=== PATIENT | female | born 1980 | race Hispanic/Latino ===

== ENCOUNTER → 2018-08-04 07:12 | Outpatient (CLI) | payer OTHER, SELFPAY ==
[2018-08-04 07:57] LABS: Hematocrit 40.7 % (36-46); Hemoglobin 13.6 g/dL (12.0-16.0); Mean Corpuscular HGB Conc 33.4 % (30-36); Mean Corpuscular Hemoglobin 30.7 PG (26-34); Mean Corpuscular Volume 91.9 fL (80-100); Platelet Count 307 X10^3/uL (150-400); Red Blood Cell Count 4.43 X10^6/uL (4.0-5.2); Red Cell Distribution Width 13.4 % (11.6-14.8); White Blood Cell Count 6.7 X10^3/uL (4.5-11.0)
[2018-08-04 08:30] LABS: Alanine Aminotransferase 14 IU/L (9-52); Albumin 4.5 g/dL (3.5-5.0); Albumin Globulin Ratio 1.5 (1.0-2.8); Alkaline Phosphatase 74 U/L (38-126); Aspartate Aminotransferase 22 IU/L (14-36); BUN Creatinine Ratio 24.3 (6-22); Bilirubin Total 0.4 mg/dL (0.2-1.3); Blood Urea Nitrogen 17 mg/dL (7-17); Calcium 9.8 mg/dL (8.4-10.2); Carbon Dioxide 31 mmol/L (22-32); Chloride 102 mmol/L (98-107); Cholesterol 173 mg/dL (140-199); Estimated Glomerular Filt Rate > 60.0 mL/min (>60); Globulin 3.1 g/dL (1.7-4.1); Glucose 90 mg/dL (70-100); HDL Cholesterol 78 mg/dL (40-60); HEMOLYSIS < 15 (0-50); LDL Cholesterol Calculated 80 mg/dL (<100); Potassium 5.1 mmol/L (3.4-5.1); Sodium 141 mmol/L (137-145); Total Protein 7.6 g/dL (6.3-8.2); Triglycerides 73 mg/dL (35-150)
== END ==
PROVIDERS: PCP Nurse Practitioner Family; Visit Provider Nurse Practitioner Family
DX: Z00.00 Encounter for general adult medical examination without abnormal findings (principal)
CPT/HCPCS: 36415; 80053; 80061; 85027

== ENCOUNTER → 2019-10-16 11:43 | Outpatient (CLI) | payer OTHER, SELFPAY ==
[2019-10-16 12:10] LABS: Hematocrit 39.6 % (36-46); Hemoglobin 13.3 g/dL (12.0-16.0); Mean Corpuscular HGB Conc 33.6 % (30-36); Mean Corpuscular Hemoglobin 30.7 PG (26-34); Mean Corpuscular Volume 91.2 fL (80-100); Platelet Count 299 X10^3/uL (150-400); Red Blood Cell Count 4.35 X10^6/uL (4.0-5.2); Red Cell Distribution Width 13.5 % (11.6-14.8); White Blood Cell Count 6.5 X10^3/uL (4.5-11.0)
[2019-10-16 14:07] LABS: Alanine Aminotransferase 28 IU/L (<35); Albumin 4.5 g/dL (3.5-5.0); Albumin Globulin Ratio 1.4 (1.0-2.8); Alkaline Phosphatase 65 U/L (38-126); Aspartate Aminotransferase 33 IU/L (14-36); BUN Creatinine Ratio 14.1 (6-22); Bilirubin Total 0.8 mg/dL (0.2-1.3); Blood Urea Nitrogen 11 mg/dL (7-17); Calcium 9.6 mg/dL (8.4-10.2); Carbon Dioxide 29 mmol/L (22-32); Chloride 102 mmol/L (98-107); Estimated Glomerular Filt Rate > 60.0 mL/min (>60); Globulin 3.3 g/dL (1.7-4.1); Glucose 88 mg/dL (70-100); HEMOLYSIS < 15 (0-50); Potassium 4.2 mmol/L (3.4-5.1); Sodium 135 mmol/L (137-145); Total Protein 7.8 g/dL (6.3-8.2)
== END ==
PROVIDERS: PCP Nurse Practitioner Family; Referring Provider Nurse Practitioner Family; Visit Provider Nurse Practitioner Family
DX: Z00.00 Encounter for general adult medical examination without abnormal findings (principal)
CPT/HCPCS: 36415; 80053; 85027

== ENCOUNTER 2020-07-26 13:45 | Outpatient (RCR) | payer OTHER, SELFPAY ==
--- NOTE | 2020-03-09 15:16 | PT.OIE ---
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 Family Provider Primary Care Provider Referring Provider Specialty: Family Practice Address: [address] [place] [address], [facility] Email: [email or web address] Physical Therapy Initial Evaluation PT-OP-A Visit Information Start: 03/09/20 12:58 Freq: Status: Active Protocol: Document 03/09/20 14:26 HH (Rec: 03/09/20 15:16 HH [email or web address]) Out-Patient Physical Therapy Visit Information Visit Information Visit Type Initial Evaluation Visit Start Time 13:00 Visit Stop Time 13:55 Total Visit Minutes 55 Visit Number Number of HEAD GOLF COACH Visits 0 Evaluation Information Evaluation Date 03/09/20 PT-OP-B Current Condition Start: 03/09/20 12:58 Freq: Status: Active Protocol: Document 03/09/20 14:26 HH (Rec: 03/09/20 15:16 HH [email or web address]) Current Condition History of Current Condition Onset Date many years ago Current Complaints R knee and R hip pain History of Current Condition Pt is an active 39yo female here for chronic R knee pain and new onset of R hip pain. Pt stated she fell a few months ago and landed on lateral side of her R hip. She stated that her whole lateral side has been hurting (pain3/ 10) since, along with tingling and numbness sensation to lateral aspect of RLE. She has been compensating by shifting her weight over to her L side for lots of activities such as running, standing and carrying kids as she stated. Also, pt stated she has L knee discomfort since 10 years ago after she hyperextended her knee while climbing stairs. She had MRI before with negative findings. She has pain 3/10 at her R knee cap region and she c/o being inactive tends to make her whole R leg stiff. Pt does crossfit 3-5 times/ week and run approx 13 miles during the weekend. Her goal is to be able to run 50 miles / month. Prior Treatments and Tests MRI from last year= negative findings Treatment Goals Patient/Caregiver Goals 1. to be able to ex and perform daily activities witohut RLE discomfort 2. to be able to run 50 miles a month Personal Factors Other Personal Factors That May Effect N/A Therapy/Recovery PT-OP-C Subjective Start: 03/09/20 12:58 Freq: Status: Active Protocol: Document 03/09/20 14:26 (Rec: 03/09/20 15:16 [email or web address]) Patient Questionnaires Lower Extremity Functional Scale LEFS Score 63 LEFS Impairment 1 to 19% Impaired (Score 63-79 ) OP-PT Pain Assessment Pain Assessment Grid Paper Pain Assessment Grid Completed Yes Location R knee Pain Location Details anterior and posterior knee Intensity 3 Scale Used Numeric (0 - 10) Description Aching Frequency Frequent Pain Aggravating Factors Activity,Exercise,Lifting R hip Pain Location Details lateral aspect Intensity 3 Scale Used Numeric (0 - 10) Description Aching Frequency Frequent Pain Aggravating Factors Position,Exercise,Standing, Sitting,Bending,Lifting PT-OP-D Balance Start: 03/09/20 12:58 Freq: Status: Active Protocol: Document 03/09/20 14:26 HH (Rec: 03/09/20 15:16 [email or web address]) Balance Tests Single Limb Standing Single Limb- Right >60 Single Limb- Left >60 Other Other Balance Tests Performed excessive R weight shift noted standing on RLE, normal = LLE PT-OP-E Functional Tests Start: 03/09/20 12:58 Freq: Status: Active Protocol: Document 03/09/20 14:26 (Rec: 03/09/20 15:16 [email or web address]) Functional Tests Star Excursion Balance Test Score on RLE fwd= 26, lateral= 27 on LLE fwd= 23, lateral= 27 Single Leg Squat Test Comment R =21 , L=18 PT-OP-F Manual Assessment Start: 03/09/20 12:58 Freq: Status: Active Protocol: Document 03/09/20 14:26 HH (Rec: 03/09/20 15:16 [email or web address]) Manual Assessments Soft Tissue Assessment Soft Tissue Mobility Assessment significant tenderness to pressure at R QL, paraspinals, R lateral quad, IT band and patella tendon PT-OP-J Posture/Palpation/Skin Start: 03/09/20 12:58 Freq: Status: Active Protocol: Document 03/09/20 14:26 (Rec: 03/09/20 15:16 [email or web address]) Posture Evaluation Position Standing Evaluation View Anterior Shoulder Posture (R) Elevated PT-OP-K Range of Motion Start: 03/09/20 12:58 Freq: Status: Active Protocol: Document 03/09/20 14:26 (Rec: 03/09/20 15:16 [email or web address]) Hip Goniometric Range of Motion Hip Left Active Internal Rotation 45 External Rotation 50 Right Active Hip ROM WFL Yes Testing Position Supine Internal Rotation 45 External Rotation 50 Knee Goniometric Range of Motion Knee Right Knee ROM WFL Yes Patient Position Supine Flexion Active (degrees) 142 Comments tightness and discomfort at end range Left Knee ROM WFL Yes Patient Position Supine Flexion Active (degrees) 155 Ankle and Foot Goniometric Range of Motion Ankle and Foot ROM Limitations Comments knee to wall test in lunges position R= 4 away from wall L= 5 away from wall PT-OP-L Special Tests Start: 03/09/20 12:58 Freq: Status: Active Protocol: Document 03/09/20 14:26 (Rec: 03/09/20 15:16 [email or web address]) Special Tests Knee Special Tests Donavan Test Results +Ve R Comments pain at distal quad and patella tendon PT-OP-M Strength Start: 03/09/20 12:58 Freq: Status: Active Protocol: Document 03/09/20 14:26 (Rec: 03/09/20 15:16 [email or web address]) Hip Strength Hip Manual Muscle Testing Right Flexion (L2) 4- Good- Extension (S1) 4- Good- Abduction 4- Good- Adduction 4- Good- Left Flexion (L2) 4 Good Extension (S1) 4 Good Abduction 4 Good Adduction 4 Good Knee Strength Knee Manual Muscle Testing Right Flexion (S2) 4- Good- Extension (L3) 4+ Good+ Left Flexion (S2) 4+ Good+ Extension (L3) 4+ Good+ Ankle/Foot Strength Ankle and Foot Manual Muscle Testing Right Dorsiflexion (L4) 5 Normal Plantarflexion (S1) 5 Normal Left Dorsiflexion (L4) 5 Normal Plantarflexion (S1) 5 Normal PT-OP-T Assessment and Plan Start: 03/09/20 12:58 Freq: Status: Active Protocol: Document 03/09/20 14:26 (Rec: 03/09/20 15:16 [email or web address]) Physical Therapy Assessment Rehab Potential Rehabilitation Potential Excellent Evaluation Complexity Number of Personal Factors/Comorbidities 0 Number of Body Systems Impaired 1-2 Clinical Presentation at Evaluation Stable Impairments Impairments Activity Tolerance,Balance, Functional Activities, Functional Mobility,Gait,Pain, Posture,ROM,Soft Tissue Mobility,Strength,Transfers Goals strength Impairment single leg squat on R= 21 inches, L = 18 inches Short Term Goal (STG) pt will increase her R LE stability and strength to be able to complete 5 times with minimal discomfort from 19 inches chair STG Duration 4 weeks Artificial Flowers Supervisor Goal (LTG) pt will increase her R LE stability and strength to be able to complete 10 times with minimal discomfort from 18 inches chair LTG Duration 8 weeks pain Impairment 3/10 pain Artificial Flowers Supervisor Goal (LTG) pt will not have R LE pain during her crossfit training and long runs LTG Duration 8 weeks LEFS Impairment pt scores 63 on LEFS Prison Goal (LTG) pt will score >70 on LEFS to improve her quality of life including being able to tolerate prolonged sitting > 1hours, sleeping on her R side and lift. LTG Duration 8 weeks single leg stability Impairment star test Short Term Goal (STG) 03/09 IE on RLE fwd= 26, lateral= 27 on LLE fwd= 23, lateral= 27 Artificial Flowers Supervisor Goal (LTG) pt will improve his single leg stability to be able to reach symmetrical result on star excursion test. LTG Duration 8 weeks Assessment Summary Assessment Pt is a 39 yo healthy and active female here for her chronic R knee pain and new onset of R hip pain. Upon assessment, pt appears to have R patella tendonopathy and R hip strain from the fall a few months ago. Pt has tightness at distal quad that limits her end range of knee flexion which specifically generates pain at deep squat and single leg squat. Her single leg stability and strength are also being limited. Pt's R hip does have WFL ROM but slight decreased in hip strength. However, this Pt noticed there 's LLD (R>L) and possible pelvic rotation and innominate and will cont to assess from next visit. Pt will benefit from skilled therapy to strength her R LE, knee ROM and overall single leg stability in order for her to continue participate crossfit training and running (goal = 50miles a month) Physical Therapy Plan Frequency and Duration Frequency of Treatment 2x/wkx1 m, 1x/wk x1m Duration of Treatment 8 weeks Plan of Care Start Date 03/09/20 Plan of Care End Date 05/08/20 Therapeutic Interventions Therapeutic Interventions Balance Training,Gait Training ,Home Exercise Program,Joint Mobilizations,Manual Therapy, Neuromuscular Re-education, Patient/Caregiver Education, Self-Care/Home Management,Soft Tissue Mobilization,Taping, Therapeutic Activities, Therapeutic Exercises Modalities Biofeedback,Cold Pack/Ice Massage,Electric Stimulation, Hot Packs,Infrared Therapy, Ultrasound Next Visit Focus/Plan Next Note Type Treatment Note Next Visit Plan check pelvic rotation, innominate, scoliosis, STM on quad , quad tendon, hip flexor stretch
--- NOTE | 2020-03-13 16:23 | PT.OTN ---
Current Diagnoses Other chronic pain (03/13/20) Pain in right knee (03/13/20) Physical Therapy Treatment Note PT-OP-A Visit Information Start: 03/09/20 12:58 Freq: Status: Active Protocol: Document 03/13/20 14:22 (Rec: 03/13/20 16:12 [id number]) Out-Patient Physical Therapy Visit Information Visit Information Visit Type Treatment Note Visit Note pt 15 mins late Visit Start Time 14:48 Visit Stop Time 15:16 Total Visit Minutes 28 Visit Number 2/60 Number of RUN BOAT OPERATOR Visits 0 PT-OP-B Current Condition Start: 03/09/20 12:58 Freq: Status: Active Protocol: Document 03/09/20 14:26 HH (Rec: 03/09/20 15:16 [email or web address]) Current Condition History of Current Condition Onset Date many years ago Current Complaints R knee and R hip pain History of Current Condition Pt is an active 39yo female here for chronic R knee pain and new onset of R hip pain. Pt stated she fell a few months ago and landed on lateral side of her R hip. She stated that her whole lateral side has been hurting (pain3/ 10) since, along with tingling and numbness sensation to lateral aspect of RLE. She has been compensating by shifting her weight over to her L side for lots of activities such as running, standing and carrying kids as she stated. Also, pt stated she has L knee discomfort since 10 years ago after she hyperextended her knee while climbing stairs. She had MRI before with negative findings. She has pain 3/10 at her R knee cap region and she c/o being inactive tends to make her whole R leg stiff. Pt does crossfit 3-5 times/ week and run approx 13 miles during the weekend. Her goal is to be able to run 50 miles / month. Prior Treatments and Tests MRI from last year= negative findings Treatment Goals Patient/Caregiver Goals 1. to be able to ex and perform daily activities witohut RLE discomfort 2. to be able to run 50 miles a month Personal Factors Other Personal Factors That May Effect N/A Therapy/Recovery PT-OP-C Subjective Start: 03/09/20 12:58 Freq: Status: Active Protocol: Document 03/13/20 14:22 HH (Rec: 03/13/20 16:12 [email or web address]) OP-PT Subjective Patient Comments Patient Comments Im excited for therapy Patient Reported Progress Improving PT-OP-D Balance Start: 03/09/20 12:58 Freq: Status: Active Protocol: Document 03/09/20 14:26 (Rec: 03/09/20 15:16 [email or web address]) Balance Tests Single Limb Standing Single Limb- Right >60 Single Limb- Left >60 Other Other Balance Tests Performed excessive R weight shift noted standing on RLE, normal = LLE PT-OP-E Functional Tests Start: 03/09/20 12:58 Freq: Status: Active Protocol: Document 03/09/20 14:26 (Rec: 03/09/20 15:16 [email or web address]) Functional Tests Star Excursion Balance Test Score on RLE fwd= 26, lateral= 27 on LLE fwd= 23, lateral= 27 Single Leg Squat Test Comment R =21 , L=18 PT-OP-F Manual Assessment Start: 03/09/20 12:58 Freq: Status: Active Protocol: Document 03/09/20 14:26 (Rec: 03/09/20 15:16 [email or web address]) Manual Assessments Soft Tissue Assessment Soft Tissue Mobility Assessment significant tenderness to pressure at R QL, paraspinals, R lateral quad, IT band and patella tendon PT-OP-J Posture/Palpation/Skin Start: 03/09/20 12:58 Freq: Status: Active Protocol: Document 03/09/20 14:26 (Rec: 03/09/20 15:16 [email or web address]) Posture Evaluation Position Standing Evaluation View Anterior Shoulder Posture (R) Elevated PT-OP-K Range of Motion Start: 03/09/20 12:58 Freq: Status: Active Protocol: Document 03/09/20 14:26 (Rec: 03/09/20 15:16 [email or web address]) Hip Goniometric Range of Motion Hip Left Active Internal Rotation 45 External Rotation 50 Right Active Hip ROM WFL Yes Testing Position Supine Internal Rotation 45 External Rotation 50 Knee Goniometric Range of Motion Knee Right Knee ROM WFL Yes Patient Position Supine Flexion Active (degrees) 142 Comments tightness and discomfort at end range Left Knee ROM WFL Yes Patient Position Supine Flexion Active (degrees) 155 Ankle and Foot Goniometric Range of Motion Ankle and Foot ROM Limitations Comments knee to wall test in lunges position R= 4 away from wall L= 5 away from wall PT-OP-L Special Tests Start: 03/09/20 12:58 Freq: Status: Active Protocol: Document 03/09/20 14:26 (Rec: 03/09/20 15:16 [email or web address]) Special Tests Knee Special Tests Donavan Test Results +Ve R Comments pain at distal quad and patella tendon PT-OP-M Strength Start: 03/09/20 12:58 Freq: Status: Active Protocol: Document 03/09/20 14:26 (Rec: 03/09/20 15:16 [email or web address]) Hip Strength Hip Manual Muscle Testing Right Flexion (L2) 4- Good- Extension (S1) 4- Good- Abduction 4- Good- Adduction 4- Good- Left Flexion (L2) 4 Good Extension (S1) 4 Good Abduction 4 Good Adduction 4 Good Knee Strength Knee Manual Muscle Testing Right Flexion (S2) 4- Good- Extension (L3) 4+ Good+ Left Flexion (S2) 4+ Good+ Extension (L3) 4+ Good+ Ankle/Foot Strength Ankle and Foot Manual Muscle Testing Right Dorsiflexion (L4) 5 Normal Plantarflexion (S1) 5 Normal Left Dorsiflexion (L4) 5 Normal Plantarflexion (S1) 5 Normal PT-OP-Q Treatments Start: 03/09/20 12:58 Freq: Status: Active Protocol: Document 03/13/20 14:22 (Rec: 03/13/20 16:12 [id number]) Therapeutic Exercises Supine Exercises piriformis stretch Side bilateral Reps/Minutes 15secs hold x 4 Comments for HEP glute release Equipment Used foam roller Reps/Minutes 2 mins Comments for HEP Prone Exercises quad release Equipment Used foam roller Reps/Minutes 2 mins Comments for HEP Standing Exercises ankle DF Standing Exercise Name elevated lunge position Side right Comments for HEP hip hike against wall Standing Exercise Name needed tactile cue to guide pelvic hip hiking Side bilateral Reps/Minutes 8 x2 Comments for HEP standing hip abd Equipment Used wall for support Reps/Minutes 10 x 2 Comments for HEP Manual Therapy Treatment Soft Tissue Mobilization QL Mobilization Type Sustained Pressure,Trigger Point Release Intensity/Depth Moderate Body Position Sidelying Comments slight tenderness to pressure noted at R QL R glute Mobilization Type Sustained Pressure,Trigger Point Release Intensity/Depth Moderate Body Position Sidelying distal quad Mobilization Type Rolling,Sustained Pressure, Trigger Point Release Intensity/Depth Moderate Body Position Supine PT-OP-T Assessment and Plan Start: 03/09/20 12:58 Freq: Status: Active Protocol: Document 03/13/20 14:22 (Rec: 03/13/20 16:12 [email or web address]) Physical Therapy Assessment Goals strength Impairment single leg squat on R= 21 inches, L = 18 inches Short Term Goal (STG) pt will increase her R LE stability and strength to be able to complete 5 times with minimal discomfort from 19 inches chair STG Duration 4 weeks Smt Machine Operator Goal (LTG) pt will increase her R LE stability and strength to be able to complete 10 times with minimal discomfort from 18 inches chair LTG Duration 8 weeks pain Impairment 3/10 pain Mcfp Goal (LTG) pt will not have R LE pain during her crossfit training and long runs LTG Duration 8 weeks LEFS Impairment pt scores 63 on LEFS Mcfp Goal (LTG) pt will score >70 on LEFS to improve her quality of life including being able to tolerate prolonged sitting > 1hours, sleeping on her R side and lift. LTG Duration 8 weeks single leg stability Impairment star test Short Term Goal (STG) 03/09 IE on RLE fwd= 26, lateral= 27 on LLE fwd= 23, lateral= 27 Mcfp Goal (LTG) pt will improve his single leg stability to be able to reach symmetrical result on star excursion test. LTG Duration 8 weeks Assessment Summary Assessment check leg length today LLE= 35 , RLE = 36. Pt has significant tenderness to pressure at distal quad and R glute but improved after manual therapy, so does her LLD. Added figure 4 stretch, hip abd, hip hike, quad release for HEP. Physical Therapy Plan Frequency and Duration Frequency of Treatment 2x/wkx1 m, 1x/wk x1m Duration of Treatment 8 weeks Plan of Care Start Date 03/09/20 Plan of Care End Date 05/08/20 Next Visit Focus/Plan Next Note Type Treatment Note Next Visit Plan check pelvic rotation, innominate, scoliosis, STM on quad , quad tendon, hip flexor stretch
--- NOTE | 2020-03-16 16:23 | PT.OTN ---
Current Diagnoses Other chronic pain (03/16/20) Pain in right knee (03/16/20) Physical Therapy Treatment Note PT-OP-A Visit Information Start: 03/09/20 12:58 Freq: Status: Active Protocol: Document 03/16/20 15:19 HH (Rec: 03/16/20 16:23 [id number]) Out-Patient Physical Therapy Visit Information Visit Information Visit Type Treatment Note Visit Start Time 15:16 Visit Stop Time 16:00 Total Visit Minutes 44 Visit Number 3/60 Number of DOBBY LOOMS PEGGER Visits 0 PT-OP-B Current Condition Start: 03/09/20 12:58 Freq: Status: Active Protocol: Document 03/09/20 14:26 HH (Rec: 03/09/20 15:16 [email or web address]) Current Condition History of Current Condition Onset Date many years ago Current Complaints R knee and R hip pain History of Current Condition Pt is an active 39yo female here for chronic R knee pain and new onset of R hip pain. Pt stated she fell a few months ago and landed on lateral side of her R hip. She stated that her whole lateral side has been hurting (pain3/ 10) since, along with tingling and numbness sensation to lateral aspect of RLE. She has been compensating by shifting her weight over to her L side for lots of activities such as running, standing and carrying kids as she stated. Also, pt stated she has L knee discomfort since 10 years ago after she hyperextended her knee while climbing stairs. She had MRI before with negative findings. She has pain 3/10 at her R knee cap region and she c/o being inactive tends to make her whole R leg stiff. Pt does crossfit 3-5 times/ week and run approx 13 miles during the weekend. Her goal is to be able to run 50 miles / month. Prior Treatments and Tests MRI from last year= negative findings Treatment Goals Patient/Caregiver Goals 1. to be able to ex and perform daily activities witohut RLE discomfort 2. to be able to run 50 miles a month Personal Factors Other Personal Factors That May Effect N/A Therapy/Recovery PT-OP-C Subjective Start: 03/09/20 12:58 Freq: Status: Active Protocol: Document 03/16/20 15:19 HH (Rec: 03/16/20 16:23 [id number]) OP-PT Subjective Patient Comments Patient Comments I feel better now and i am able to sleep on my R side now . Patient Reported Progress Improving PT-OP-D Balance Start: 03/09/20 12:58 Freq: Status: Active Protocol: Document 03/09/20 14:26 HH (Rec: 03/09/20 15:16 [email or web address]) Balance Tests Single Limb Standing Single Limb- Right >60 Single Limb- Left >60 Other Other Balance Tests Performed excessive R weight shift noted standing on RLE, normal = LLE PT-OP-E Functional Tests Start: 03/09/20 12:58 Freq: Status: Active Protocol: Document 03/09/20 14:26 HH (Rec: 03/09/20 15:16 [email or web address]) Functional Tests Star Excursion Balance Test Score on RLE fwd= 26, lateral= 27 on LLE fwd= 23, lateral= 27 Single Leg Squat Test Comment R =21 , L=18 PT-OP-F Manual Assessment Start: 03/09/20 12:58 Freq: Status: Active Protocol: Document 03/09/20 14:26 HH (Rec: 03/09/20 15:16 [email or web address]) Manual Assessments Soft Tissue Assessment Soft Tissue Mobility Assessment significant tenderness to pressure at R QL, paraspinals, R lateral quad, IT band and patella tendon PT-OP-J Posture/Palpation/Skin Start: 03/09/20 12:58 Freq: Status: Active Protocol: Document 03/09/20 14:26 HH (Rec: 03/09/20 15:16 [email or web address]) Posture Evaluation Position Standing Evaluation View Anterior Shoulder Posture (R) Elevated PT-OP-K Range of Motion Start: 03/09/20 12:58 Freq: Status: Active Protocol: Document 03/09/20 14:26 HH (Rec: 03/09/20 15:16 [email or web address]) Hip Goniometric Range of Motion Hip Left Active Internal Rotation 45 External Rotation 50 Right Active Hip ROM WFL Yes Testing Position Supine Internal Rotation 45 External Rotation 50 Knee Goniometric Range of Motion Knee Right Knee ROM WFL Yes Patient Position Supine Flexion Active (degrees) 142 Comments tightness and discomfort at end range Left Knee ROM WFL Yes Patient Position Supine Flexion Active (degrees) 155 Ankle and Foot Goniometric Range of Motion Ankle and Foot ROM Limitations Comments knee to wall test in lunges position R= 4 away from wall L= 5 away from wall PT-OP-L Special Tests Start: 03/09/20 12:58 Freq: Status: Active Protocol: Document 03/09/20 14:26 (Rec: 03/09/20 15:16 [email or web address]) Special Tests Knee Special Tests Donavan Test Results +Ve R Comments pain at distal quad and patella tendon PT-OP-M Strength Start: 03/09/20 12:58 Freq: Status: Active Protocol: Document 03/09/20 14:26 (Rec: 03/09/20 15:16 [email or web address]) Hip Strength Hip Manual Muscle Testing Right Flexion (L2) 4- Good- Extension (S1) 4- Good- Abduction 4- Good- Adduction 4- Good- Left Flexion (L2) 4 Good Extension (S1) 4 Good Abduction 4 Good Adduction 4 Good Knee Strength Knee Manual Muscle Testing Right Flexion (S2) 4- Good- Extension (L3) 4+ Good+ Left Flexion (S2) 4+ Good+ Extension (L3) 4+ Good+ Ankle/Foot Strength Ankle and Foot Manual Muscle Testing Right Dorsiflexion (L4) 5 Normal Plantarflexion (S1) 5 Normal Left Dorsiflexion (L4) 5 Normal Plantarflexion (S1) 5 Normal PT-OP-Q Treatments Start: 03/09/20 12:58 Freq: Status: Active Protocol: Document 03/16/20 15:19 (Rec: 03/16/20 16:23 [id number]) Therapeutic Exercises Supine Exercises bridging Side bilateral Reps/Minutes 10 x2 Comments then SL bridge piriformis stretch Side bilateral Reps/Minutes 15secs hold x 4 Comments for HEP Standing Exercises step up Side bilateral Equipment Used 12 box Reps/Minutes 8x2 Comments pt reports R knee instability at first, but improved after modified lunges lunges Side bilateral Equipment Used level 1 band at knee to provide knee valgus Reps/Minutes 8x2 Comments cues on knee alignment RDL Side bilateral Equipment Used 20lbs KB Reps/Minutes 8 x 2 ankle DF Standing Exercise Name elevated lunge position Side right Comments for HEP hip hike against wall Standing Exercise Name needed tactile cue to guide pelvic hip hiking Side bilateral Reps/Minutes 8 x2 Comments for HEP Manual Therapy Treatment Soft Tissue Mobilization QL Mobilization Type Sustained Pressure,Trigger Point Release Intensity/Depth Moderate Body Position Sidelying Comments slight tenderness to pressure noted at R QL R glute Mobilization Type Sustained Pressure,Trigger Point Release Intensity/Depth Moderate Body Position Sidelying PT-OP-T Assessment and Plan Start: 03/09/20 12:58 Freq: Status: Active Protocol: Document 03/16/20 15:19 HH (Rec: 03/16/20 16:23 HH [id number]) Physical Therapy Assessment Goals strength Impairment single leg squat on R= 21 inches, L = 18 inches Short Term Goal (STG) pt will increase her R LE stability and strength to be able to complete 5 times with minimal discomfort from 19 inches chair STG Duration 4 weeks Heating Engineer Goal (LTG) pt will increase her R LE stability and strength to be able to complete 10 times with minimal discomfort from 18 inches chair LTG Duration 8 weeks pain Impairment 3/10 pain Group Home Goal (LTG) pt will not have R LE pain during her crossfit training and long runs LTG Duration 8 weeks LEFS Impairment pt scores 63 on LEFS Group Home Goal (LTG) pt will score >70 on LEFS to improve her quality of life including being able to tolerate prolonged sitting > 1hours, sleeping on her R side and lift. LTG Duration 8 weeks single leg stability Impairment star test Short Term Goal (STG) 03/09 IE on RLE fwd= 26, lateral= 27 on LLE fwd= 23, lateral= 27 Group Home Goal (LTG) pt will improve his single leg stability to be able to reach symmetrical result on star excursion test. LTG Duration 8 weeks Assessment Summary Assessment Pt progress well so far with less pain and improved activity tolerance. pt also shows improved step up stability on RLE after mod lunges with focus on R glute activation. Physical Therapy Plan Frequency and Duration Frequency of Treatment 2x/wkx1 m, 1x/wk x1m Duration of Treatment 8 weeks Plan of Care Start Date 03/09/20 Plan of Care End Date 05/08/20 Next Visit Focus/Plan Next Note Type Treatment Note Next Visit Plan check pelvic rotation, innominate, scoliosis, STM on quad , quad tendon, hip flexor stretch
--- NOTE | 2020-03-21 16:19 | PT.OTN ---
Current Diagnoses Other chronic pain (03/21/20) Pain in right knee (03/21/20) Physical Therapy Treatment Note PT-OP-A Visit Information Start: 03/09/20 12:58 Freq: Status: Active Protocol: Document 03/21/20 14:35 HH (Rec: 03/21/20 16:19 [id number]) Out-Patient Physical Therapy Visit Information Visit Information Visit Type Treatment Note Visit Start Time 14:33 Visit Stop Time 15:15 Total Visit Minutes 42 Visit Number 4/60 Number of MEDICAL FIELD REPRESENTATIVE Visits 0 PT-OP-B Current Condition Start: 03/09/20 12:58 Freq: Status: Active Protocol: Document 03/09/20 14:26 HH (Rec: 03/09/20 15:16 [email or web address]) Current Condition History of Current Condition Onset Date many years ago Current Complaints R knee and R hip pain History of Current Condition Pt is an active 39yo female here for chronic R knee pain and new onset of R hip pain. Pt stated she fell a few months ago and landed on lateral side of her R hip. She stated that her whole lateral side has been hurting (pain3/ 10) since, along with tingling and numbness sensation to lateral aspect of RLE. She has been compensating by shifting her weight over to her L side for lots of activities such as running, standing and carrying kids as she stated. Also, pt stated she has L knee discomfort since 10 years ago after she hyperextended her knee while climbing stairs. She had MRI before with negative findings. She has pain 3/10 at her R knee cap region and she c/o being inactive tends to make her whole R leg stiff. Pt does crossfit 3-5 times/ week and run approx 13 miles during the weekend. Her goal is to be able to run 50 miles / month. Prior Treatments and Tests MRI from last year= negative findings Treatment Goals Patient/Caregiver Goals 1. to be able to ex and perform daily activities witohut RLE discomfort 2. to be able to run 50 miles a month Personal Factors Other Personal Factors That May Effect N/A Therapy/Recovery PT-OP-C Subjective Start: 03/09/20 12:58 Freq: Status: Active Protocol: Document 03/21/20 14:35 HH (Rec: 03/21/20 16:19 [id number]) OP-PT Subjective Patient Comments Patient Comments I did 10 miles over the weekend and i feel great. The stretching Patient Reported Progress Improving PT-OP-D Balance Start: 03/09/20 12:58 Freq: Status: Active Protocol: Document 03/09/20 14:26 (Rec: 03/09/20 15:16 [email or web address]) Balance Tests Single Limb Standing Single Limb- Right >60 Single Limb- Left >60 Other Other Balance Tests Performed excessive R weight shift noted standing on RLE, normal = LLE PT-OP-E Functional Tests Start: 03/09/20 12:58 Freq: Status: Active Protocol: Document 03/09/20 14:26 (Rec: 03/09/20 15:16 [email or web address]) Functional Tests Star Excursion Balance Test Score on RLE fwd= 26, lateral= 27 on LLE fwd= 23, lateral= 27 Single Leg Squat Test Comment R =21 , L=18 PT-OP-F Manual Assessment Start: 03/09/20 12:58 Freq: Status: Active Protocol: Document 03/09/20 14:26 (Rec: 03/09/20 15:16 [email or web address]) Manual Assessments Soft Tissue Assessment Soft Tissue Mobility Assessment significant tenderness to pressure at R QL, paraspinals, R lateral quad, IT band and patella tendon PT-OP-J Posture/Palpation/Skin Start: 03/09/20 12:58 Freq: Status: Active Protocol: Document 03/09/20 14:26 (Rec: 03/09/20 15:16 [email or web address]) Posture Evaluation Position Standing Evaluation View Anterior Shoulder Posture (R) Elevated PT-OP-K Range of Motion Start: 03/09/20 12:58 Freq: Status: Active Protocol: Document 03/09/20 14:26 (Rec: 03/09/20 15:16 [email or web address]) Hip Goniometric Range of Motion Hip Left Active Internal Rotation 45 External Rotation 50 Right Active Hip ROM WFL Yes Testing Position Supine Internal Rotation 45 External Rotation 50 Knee Goniometric Range of Motion Knee Right Knee ROM WFL Yes Patient Position Supine Flexion Active (degrees) 142 Comments tightness and discomfort at end range Left Knee ROM WFL Yes Patient Position Supine Flexion Active (degrees) 155 Ankle and Foot Goniometric Range of Motion Ankle and Foot ROM Limitations Comments knee to wall test in lunges position R= 4 away from wall L= 5 away from wall PT-OP-L Special Tests Start: 03/09/20 12:58 Freq: Status: Active Protocol: Document 03/09/20 14:26 HH (Rec: 03/09/20 15:16 [email or web address]) Special Tests Knee Special Tests Donavan Test Results +Ve R Comments pain at distal quad and patella tendon PT-OP-M Strength Start: 03/09/20 12:58 Freq: Status: Active Protocol: Document 03/09/20 14:26 HH (Rec: 03/09/20 15:16 [email or web address]) Hip Strength Hip Manual Muscle Testing Right Flexion (L2) 4- Good- Extension (S1) 4- Good- Abduction 4- Good- Adduction 4- Good- Left Flexion (L2) 4 Good Extension (S1) 4 Good Abduction 4 Good Adduction 4 Good Knee Strength Knee Manual Muscle Testing Right Flexion (S2) 4- Good- Extension (L3) 4+ Good+ Left Flexion (S2) 4+ Good+ Extension (L3) 4+ Good+ Ankle/Foot Strength Ankle and Foot Manual Muscle Testing Right Dorsiflexion (L4) 5 Normal Plantarflexion (S1) 5 Normal Left Dorsiflexion (L4) 5 Normal Plantarflexion (S1) 5 Normal PT-OP-Q Treatments Start: 03/09/20 12:58 Freq: Status: Active Protocol: Document 03/21/20 14:35 HH (Rec: 03/21/20 16:19 [id number]) Therapeutic Exercises Supine Exercises bridging Supine Exercise Name SL bridge Side bilateral Reps/Minutes 10 x2 piriformis stretch Side bilateral Reps/Minutes 15secs hold x 4 Comments for HEP Standing Exercises SL squat Standing Exercise Name single leg squat Side bilateral Equipment Used from 22 Reps/Minutes [address] Standing Exercise Name fwd, bwd and lateral Side bilateral Equipment Used slider Reps/Minutes 4 rounds x 2 Comments cues on WB on RLE step up Side bilateral Equipment Used 12 box Reps/Minutes 8x2 Comments pt reports R knee instability at first, but improved after modified lunges lunges Side bilateral Equipment Used level 1 band at knee to provide knee valgus Reps/Minutes 8x2 Comments cues on knee alignment RDL Side bilateral Equipment Used 20lbs KB Reps/Minutes 8 x 2 Manual Therapy Treatment Soft Tissue Mobilization QL Mobilization Type Sustained Pressure,Trigger Point Release Intensity/Depth Moderate Body Position Sidelying Comments slight tenderness to pressure noted at R QL R glute Mobilization Type Sustained Pressure,Trigger Point Release Intensity/Depth Moderate Body Position Sidelying PT-OP-T Assessment and Plan Start: 03/09/20 12:58 Freq: Status: Active Protocol: Document 03/21/20 14:35 HH (Rec: 03/21/20 16:19 HH [id number]) Physical Therapy Assessment Goals strength Impairment single leg squat on R= 21 inches, L = 18 inches Short Term Goal (STG) pt will increase her R LE stability and strength to be able to complete 5 times with minimal discomfort from 19 inches chair STG Duration 4 weeks Detention Goal (LTG) pt will increase her R LE stability and strength to be able to complete 10 times with minimal discomfort from 18 inches chair LTG Duration 8 weeks pain Impairment 3/10 pain Detention Goal (LTG) pt will not have R LE pain during her crossfit training and long runs LTG Duration 8 weeks LEFS Impairment pt scores 63 on LEFS Windshield Installer Goal (LTG) pt will score >70 on LEFS to improve her quality of life including being able to tolerate prolonged sitting > 1hours, sleeping on her R side and lift. LTG Duration 8 weeks single leg stability Impairment star test Short Term Goal (STG) 03/09 IE on RLE fwd= 26, lateral= 27 on LLE fwd= 23, lateral= 27 Detention Goal (LTG) pt will improve his single leg stability to be able to reach symmetrical result on star excursion test. LTG Duration 8 weeks Assessment Summary Assessment Pt reports she ran 10 miles during the weekend without much discomfort. Pt also feels improved SL stability and strength at R LE. Pt caitie session well today with SL stability and strnegthening focused therex. Physical Therapy Plan Frequency and Duration Frequency of Treatment 2x/wkx1 m, 1x/wk x1m Duration of Treatment 8 weeks Plan of Care Start Date 03/09/20 Plan of Care End Date 05/08/20 Next Visit Focus/Plan Next Note Type Treatment Note Next Visit Plan check pelvic rotation, innominate, scoliosis, STM on quad , quad tendon, hip flexor stretch
--- NOTE | 2020-04-10 16:14 | PT.OTN ---
Current Diagnoses Other chronic pain (04/10/20) Pain in right knee (04/10/20) Physical Therapy Treatment Note PT-OP-A Visit Information Start: 03/09/20 12:58 Freq: Status: Active Protocol: Document 04/10/20 13:49 HH (Rec: 04/10/20 16:13 [id number]) Out-Patient Physical Therapy Visit Information Visit Information Visit Type Treatment Note Visit Start Time 13:57 Visit Stop Time 14:45 Total Visit Minutes 48 Visit Number 5/60 Number of STRATEGIC SOURCING SPECIALIST Visits 0 PT-OP-B Current Condition Start: 03/09/20 12:58 Freq: Status: Active Protocol: Document 03/09/20 14:26 HH (Rec: 03/09/20 15:16 [email or web address]) Current Condition History of Current Condition Onset Date many years ago Current Complaints R knee and R hip pain History of Current Condition Pt is an active 39yo female here for chronic R knee pain and new onset of R hip pain. Pt stated she fell a few months ago and landed on lateral side of her R hip. She stated that her whole lateral side has been hurting (pain3/ 10) since, along with tingling and numbness sensation to lateral aspect of RLE. She has been compensating by shifting her weight over to her L side for lots of activities such as running, standing and carrying kids as she stated. Also, pt stated she has L knee discomfort since 10 years ago after she hyperextended her knee while climbing stairs. She had MRI before with negative findings. She has pain 3/10 at her R knee cap region and she c/o being inactive tends to make her whole R leg stiff. Pt does crossfit 3-5 times/ week and run approx 13 miles during the weekend. Her goal is to be able to run 50 miles / month. Prior Treatments and Tests MRI from last year= negative findings Treatment Goals Patient/Caregiver Goals 1. to be able to ex and perform daily activities witohut RLE discomfort 2. to be able to run 50 miles a month Personal Factors Other Personal Factors That May Effect N/A Therapy/Recovery PT-OP-C Subjective Start: 03/09/20 12:58 Freq: Status: Active Protocol: Document 04/10/20 13:49 HH (Rec: 04/10/20 16:13 [id number]) OP-PT Subjective Patient Comments Patient Comments I havent run for 20 days so im a little abit out of shape. PT-OP-D Balance Start: 03/09/20 12:58 Freq: Status: Active Protocol: Document 03/09/20 14:26 (Rec: 03/09/20 15:16 [email or web address]) Balance Tests Single Limb Standing Single Limb- Right >60 Single Limb- Left >60 Other Other Balance Tests Performed excessive R weight shift noted standing on RLE, normal = LLE PT-OP-E Functional Tests Start: 03/09/20 12:58 Freq: Status: Active Protocol: Document 03/09/20 14:26 (Rec: 03/09/20 15:16 [email or web address]) Functional Tests Star Excursion Balance Test Score on RLE fwd= 26, lateral= 27 on LLE fwd= 23, lateral= 27 Single Leg Squat Test Comment R =21 , L=18 PT-OP-F Manual Assessment Start: 03/09/20 12:58 Freq: Status: Active Protocol: Document 03/09/20 14:26 (Rec: 03/09/20 15:16 [email or web address]) Manual Assessments Soft Tissue Assessment Soft Tissue Mobility Assessment significant tenderness to pressure at R QL, paraspinals, R lateral quad, IT band and patella tendon PT-OP-J Posture/Palpation/Skin Start: 03/09/20 12:58 Freq: Status: Active Protocol: Document 03/09/20 14:26 (Rec: 03/09/20 15:16 [email or web address]) Posture Evaluation Position Standing Evaluation View Anterior Shoulder Posture (R) Elevated PT-OP-K Range of Motion Start: 03/09/20 12:58 Freq: Status: Active Protocol: Document 03/09/20 14:26 (Rec: 03/09/20 15:16 [email or web address]) Hip Goniometric Range of Motion Hip Left Active Internal Rotation 45 External Rotation 50 Right Active Hip ROM WFL Yes Testing Position Supine Internal Rotation 45 External Rotation 50 Knee Goniometric Range of Motion Knee Right Knee ROM WFL Yes Patient Position Supine Flexion Active (degrees) 142 Comments tightness and discomfort at end range Left Knee ROM WFL Yes Patient Position Supine Flexion Active (degrees) 155 Ankle and Foot Goniometric Range of Motion Ankle and Foot ROM Limitations Comments knee to wall test in lunges position R= 4 away from wall L= 5 away from wall PT-OP-L Special Tests Start: 03/09/20 12:58 Freq: Status: Active Protocol: Document 03/09/20 14:26 HH (Rec: 03/09/20 15:16 [email or web address]) Special Tests Knee Special Tests Donavan Test Results +Ve R Comments pain at distal quad and patella tendon PT-OP-M Strength Start: 03/09/20 12:58 Freq: Status: Active Protocol: Document 03/09/20 14:26 HH (Rec: 03/09/20 15:16 [email or web address]) Hip Strength Hip Manual Muscle Testing Right Flexion (L2) 4- Good- Extension (S1) 4- Good- Abduction 4- Good- Adduction 4- Good- Left Flexion (L2) 4 Good Extension (S1) 4 Good Abduction 4 Good Adduction 4 Good Knee Strength Knee Manual Muscle Testing Right Flexion (S2) 4- Good- Extension (L3) 4+ Good+ Left Flexion (S2) 4+ Good+ Extension (L3) 4+ Good+ Ankle/Foot Strength Ankle and Foot Manual Muscle Testing Right Dorsiflexion (L4) 5 Normal Plantarflexion (S1) 5 Normal Left Dorsiflexion (L4) 5 Normal Plantarflexion (S1) 5 Normal PT-OP-Q Treatments Start: 03/09/20 12:58 Freq: Status: Active Protocol: Document 04/10/20 13:49 HH (Rec: 04/10/20 16:13 [id number]) Therapeutic Exercises Supine Exercises bridging Supine Exercise Name SL bridge Side bilateral Equipment Used green band Reps/Minutes 10 x2 piriformis stretch Side bilateral Reps/Minutes 15secs hold x 4 Comments for HEP Standing Exercises calf stretch Side bilateral Reps/Minutes 15 sec hold x5 wall sit Standing Exercise Name ball between knees Side bilateral Reps/Minutes 20 secs hold x5 SL squat Standing Exercise Name single leg squat Side bilateral Equipment Used from 22 Reps/Minutes [address] Standing Exercise Name fwd, bwd and lateral Side bilateral Equipment Used slider Reps/Minutes 4 rounds x 2 Comments cues on WB on RLE step up Standing Exercise Name TUT, 5 seconds each for descend and ascend Side bilateral Equipment Used 12 box Reps/Minutes 8x2 Comments pt reports R knee instability at first, but improved after modified lunges lunges Side bilateral Equipment Used level 1 band at knee to provide knee valgus Reps/Minutes 8x2 Comments cues on knee alignment Manual Therapy Treatment Soft Tissue Mobilization QL Mobilization Type Sustained Pressure,Trigger Point Release Intensity/Depth Moderate Body Position Sidelying Comments slight tenderness to pressure noted at R QL R glute Mobilization Type Sustained Pressure,Trigger Point Release Intensity/Depth Moderate Body Position Sidelying PT-OP-T Assessment and Plan Start: 03/09/20 12:58 Freq: Status: Active Protocol: Document 04/10/20 13:49 (Rec: 04/10/20 16:13 [id number]) Physical Therapy Assessment Goals strength Impairment single leg squat on R= 21 inches, L = 18 inches Short Term Goal (STG) pt will increase her R LE stability and strength to be able to complete 5 times with minimal discomfort from 19 inches chair STG Duration 4 weeks Correction Goal (LTG) pt will increase her R LE stability and strength to be able to complete 10 times with minimal discomfort from 18 inches chair LTG Duration 8 weeks pain Impairment 3/10 pain Fund Raiser Goal (LTG) pt will not have R LE pain during her crossfit training and long runs LTG Duration 8 weeks LEFS Impairment pt scores 63 on LEFS Fund Raiser Goal (LTG) pt will score >70 on LEFS to improve her quality of life including being able to tolerate prolonged sitting > 1hours, sleeping on her R side and lift. LTG Duration 8 weeks single leg stability Impairment star test Short Term Goal (STG) 03/09 IE on RLE fwd= 26, lateral= 27 on LLE fwd= 23, lateral= 27 Fund Raiser Goal (LTG) pt will improve his single leg stability to be able to reach symmetrical result on star excursion test. LTG Duration 8 weeks Assessment Summary Assessment Pt no longer have R hip discomfort but residual R knee pain during her workouts and running routine. Pt has patella tendonopathy after assessment, especially pt's workout routine which involves crossfit high intensity movement patterns. Pt reports reduced knee pain after focusing on slow eccentric quad strengthening therex. Added wall sit, step up (10s each rep) and calf stretch. D/ t pt's good progress, pt will benefit from 1x/wk x 4 weeks. Physical Therapy Plan Frequency and Duration Frequency of Treatment 1x/Week Duration of Treatment 4 weeks Plan of Care Start Date 03/09/20 Plan of Care End Date 05/08/20 Next Visit Focus/Plan Next Note Type Treatment Note Next Visit Plan check pelvic rotation, innominate, scoliosis, STM on quad , quad tendon, hip flexor stretch
--- NOTE | 2020-04-13 14:34 | PT.OTN ---
Current Diagnoses Other chronic pain (04/13/20) Pain in right knee (04/13/20) Physical Therapy Treatment Note PT-OP-A Visit Information Start: 03/09/20 12:58 Freq: Status: Active Protocol: Document 04/13/20 13:51 HH (Rec: 04/13/20 14:34 [id number]) Out-Patient Physical Therapy Visit Information Visit Information Visit Type Treatment Note Visit Start Time 13:48 Visit Stop Time 14:30 Total Visit Minutes 42 Visit Number 6/60 Number of SCRAP CHARGER Visits 0 PT-OP-B Current Condition Start: 03/09/20 12:58 Freq: Status: Active Protocol: Document 03/09/20 14:26 HH (Rec: 03/09/20 15:16 HH [email or web address]) Current Condition History of Current Condition Onset Date many years ago Current Complaints R knee and R hip pain History of Current Condition Pt is an active 39yo female here for chronic R knee pain and new onset of R hip pain. Pt stated she fell a few months ago and landed on lateral side of her R hip. She stated that her whole lateral side has been hurting (pain3/ 10) since, along with tingling and numbness sensation to lateral aspect of RLE. She has been compensating by shifting her weight over to her L side for lots of activities such as running, standing and carrying kids as she stated. Also, pt stated she has L knee discomfort since 10 years ago after she hyperextended her knee while climbing stairs. She had MRI before with negative findings. She has pain 3/10 at her R knee cap region and she c/o being inactive tends to make her whole R leg stiff. Pt does crossfit 3-5 times/ week and run approx 13 miles during the weekend. Her goal is to be able to run 50 miles / month. Prior Treatments and Tests MRI from last year= negative findings Treatment Goals Patient/Caregiver Goals 1. to be able to ex and perform daily activities witohut RLE discomfort 2. to be able to run 50 miles a month Personal Factors Other Personal Factors That May Effect N/A Therapy/Recovery PT-OP-C Subjective Start: 03/09/20 12:58 Freq: Status: Active Protocol: Document 04/13/20 13:51 HH (Rec: 04/13/20 14:34 [id number]) OP-PT Subjective Patient Comments Patient Comments IM doing good and but i did get a little sore from my workout last night which involves 100 snatches, deadlife, high pull deadlife and air squats. PT-OP-D Balance Start: 03/09/20 12:58 Freq: Status: Active Protocol: Document 03/09/20 14:26 HH (Rec: 03/09/20 15:16 [email or web address]) Balance Tests Single Limb Standing Single Limb- Right >60 Single Limb- Left >60 Other Other Balance Tests Performed excessive R weight shift noted standing on RLE, normal = LLE PT-OP-E Functional Tests Start: 03/09/20 12:58 Freq: Status: Active Protocol: Document 03/09/20 14:26 HH (Rec: 03/09/20 15:16 [email or web address]) Functional Tests Star Excursion Balance Test Score on RLE fwd= 26, lateral= 27 on LLE fwd= 23, lateral= 27 Single Leg Squat Test Comment R =21 , L=18 PT-OP-F Manual Assessment Start: 03/09/20 12:58 Freq: Status: Active Protocol: Document 03/09/20 14:26 HH (Rec: 03/09/20 15:16 [email or web address]) Manual Assessments Soft Tissue Assessment Soft Tissue Mobility Assessment significant tenderness to pressure at R QL, paraspinals, R lateral quad, IT band and patella tendon PT-OP-J Posture/Palpation/Skin Start: 03/09/20 12:58 Freq: Status: Active Protocol: Document 03/09/20 14:26 HH (Rec: 03/09/20 15:16 [email or web address]) Posture Evaluation Position Standing Evaluation View Anterior Shoulder Posture (R) Elevated PT-OP-K Range of Motion Start: 03/09/20 12:58 Freq: Status: Active Protocol: Document 03/09/20 14:26 HH (Rec: 03/09/20 15:16 [email or web address]) Hip Goniometric Range of Motion Hip Left Active Internal Rotation 45 External Rotation 50 Right Active Hip ROM WFL Yes Testing Position Supine Internal Rotation 45 External Rotation 50 Knee Goniometric Range of Motion Knee Right Knee ROM WFL Yes Patient Position Supine Flexion Active (degrees) 142 Comments tightness and discomfort at end range Left Knee ROM WFL Yes Patient Position Supine Flexion Active (degrees) 155 Ankle and Foot Goniometric Range of Motion Ankle and Foot ROM Limitations Comments knee to wall test in lunges position R= 4 away from wall L= 5 away from wall PT-OP-L Special Tests Start: 03/09/20 12:58 Freq: Status: Active Protocol: Document 03/09/20 14:26 (Rec: 03/09/20 15:16 [email or web address]) Special Tests Knee Special Tests Donavan Test Results +Ve R Comments pain at distal quad and patella tendon PT-OP-M Strength Start: 03/09/20 12:58 Freq: Status: Active Protocol: Document 03/09/20 14:26 HH (Rec: 03/09/20 15:16 [email or web address]) Hip Strength Hip Manual Muscle Testing Right Flexion (L2) 4- Good- Extension (S1) 4- Good- Abduction 4- Good- Adduction 4- Good- Left Flexion (L2) 4 Good Extension (S1) 4 Good Abduction 4 Good Adduction 4 Good Knee Strength Knee Manual Muscle Testing Right Flexion (S2) 4- Good- Extension (L3) 4+ Good+ Left Flexion (S2) 4+ Good+ Extension (L3) 4+ Good+ Ankle/Foot Strength Ankle and Foot Manual Muscle Testing Right Dorsiflexion (L4) 5 Normal Plantarflexion (S1) 5 Normal Left Dorsiflexion (L4) 5 Normal Plantarflexion (S1) 5 Normal PT-OP-Q Treatments Start: 03/09/20 12:58 Freq: Status: Active Protocol: Document 04/13/20 13:51 HH (Rec: 04/13/20 14:34 HH [id number]) Cardio Equipment Bicycle (Upright) Duration (Minutes) 5 Resistance 8 Therapeutic Exercises Standing Exercises air squat Equipment Used with vinay board Reps/Minutes 10 x 2 calf stretch Side bilateral Equipment Used vinay board Reps/Minutes 15 sec hold x5 wall sit Standing Exercise Name ball between knees Side bilateral Reps/Minutes 20 secs hold x5 SL squat Standing Exercise Name single leg squat Side bilateral Equipment Used from 22 Reps/Minutes 8 x2 step up Standing Exercise Name TUT, 5 seconds each for descend and ascend Side bilateral Equipment Used 12 box Reps/Minutes 8x2 Comments pt reports R knee instability at first, but improved after modified lunges lunges Side bilateral Equipment Used level 1 band at knee to provide knee valgus Reps/Minutes 8x2 Comments cues on knee alignment Manual Therapy Treatment Soft Tissue Mobilization R glute Mobilization Type Sustained Pressure,Trigger Point Release Intensity/Depth Moderate Body Position Sidelying distal quad Body Location patella tendon Mobilization Type Sustained Pressure,Trigger Point Release Intensity/Depth Deep Body Position Supine PT-OP-T Assessment and Plan Start: 03/09/20 12:58 Freq: Status: Active Protocol: Document 04/13/20 13:51 HH (Rec: 04/13/20 14:34 HH [id number]) Physical Therapy Assessment Goals strength Impairment single leg squat on R= 21 inches, L = 18 inches Short Term Goal (STG) pt will increase her R LE stability and strength to be able to complete 5 times with minimal discomfort from 19 inches chair STG Duration 4 weeks Superintendent Pipelines Goal (LTG) pt will increase her R LE stability and strength to be able to complete 10 times with minimal discomfort from 18 inches chair LTG Duration 8 weeks pain Impairment 3/10 pain Superintendent Pipelines Goal (LTG) pt will not have R LE pain during her crossfit training and long runs LTG Duration 8 weeks LEFS Impairment pt scores 63 on LEFS Mcc Goal (LTG) pt will score >70 on LEFS to improve her quality of life including being able to tolerate prolonged sitting > 1hours, sleeping on her R side and lift. LTG Duration 8 weeks single leg stability Impairment star test Short Term Goal (STG) 03/09 IE on RLE fwd= 26, lateral= 27 on LLE fwd= 23, lateral= 27 Superintendent Pipelines Goal (LTG) pt will improve his single leg stability to be able to reach symmetrical result on star excursion test. LTG Duration 8 weeks Assessment Summary Assessment Pt caitie session well. No pain noted for the entire session today. Tx focused on SL balance, SL squat and B squat activities. Physical Therapy Plan Frequency and Duration Frequency of Treatment 1x/Week Duration of Treatment 4 weeks Plan of Care Start Date 03/09/20 Plan of Care End Date 05/08/20 Next Visit Focus/Plan Next Note Type Treatment Note Next Visit Plan check pelvic rotation, innominate, scoliosis, STM on quad , quad tendon, hip flexor stretch
--- NOTE | 2020-04-28 15:47 | PT.OTN ---
Current Diagnoses Other chronic pain (04/28/20) Pain in right knee (04/28/20) Physical Therapy Treatment Note PT-OP-A Visit Information Start: 03/09/20 12:58 Freq: Status: Active Protocol: Document 04/28/20 14:37 HH (Rec: 04/28/20 15:47 [id number]) Out-Patient Physical Therapy Visit Information Visit Information Visit Type Treatment Note Visit Start Time 14:30 Visit Stop Time 15:20 Total Visit Minutes 50 Visit Number 7/60 Number of UROGYNECOLOGY PHYSICIAN Visits 0 PT-OP-B Current Condition Start: 03/09/20 12:58 Freq: Status: Active Protocol: Document 03/09/20 14:26 HH (Rec: 03/09/20 15:16 HH [email or web address]) Current Condition History of Current Condition Onset Date many years ago Current Complaints R knee and R hip pain History of Current Condition Pt is an active 39yo female here for chronic R knee pain and new onset of R hip pain. Pt stated she fell a few months ago and landed on lateral side of her R hip. She stated that her whole lateral side has been hurting (pain3/ 10) since, along with tingling and numbness sensation to lateral aspect of RLE. She has been compensating by shifting her weight over to her L side for lots of activities such as running, standing and carrying kids as she stated. Also, pt stated she has L knee discomfort since 10 years ago after she hyperextended her knee while climbing stairs. She had MRI before with negative findings. She has pain 3/10 at her R knee cap region and she c/o being inactive tends to make her whole R leg stiff. Pt does crossfit 3-5 times/ week and run approx 13 miles during the weekend. Her goal is to be able to run 50 miles / month. Prior Treatments and Tests MRI from last year= negative findings Treatment Goals Patient/Caregiver Goals 1. to be able to ex and perform daily activities witohut RLE discomfort 2. to be able to run 50 miles a month Personal Factors Other Personal Factors That May Effect N/A Therapy/Recovery PT-OP-C Subjective Start: 03/09/20 12:58 Freq: Status: Active Protocol: Document 04/28/20 14:37 HH (Rec: 04/28/20 15:47 [id number]) OP-PT Subjective Patient Comments Patient Comments I was doing good until i went for a hike for 5 hours two weeks and my R hip started bothering me again. My R knee has been doing good PT-OP-D Balance Start: 03/09/20 12:58 Freq: Status: Active Protocol: Document 03/09/20 14:26 HH (Rec: 03/09/20 15:16 [email or web address]) Balance Tests Single Limb Standing Single Limb- Right >60 Single Limb- Left >60 Other Other Balance Tests Performed excessive R weight shift noted standing on RLE, normal = LLE PT-OP-E Functional Tests Start: 03/09/20 12:58 Freq: Status: Active Protocol: Document 03/09/20 14:26 HH (Rec: 03/09/20 15:16 [email or web address]) Functional Tests Star Excursion Balance Test Score on RLE fwd= 26, lateral= 27 on LLE fwd= 23, lateral= 27 Single Leg Squat Test Comment R =21 , L=18 PT-OP-F Manual Assessment Start: 03/09/20 12:58 Freq: Status: Active Protocol: Document 03/09/20 14:26 HH (Rec: 03/09/20 15:16 [email or web address]) Manual Assessments Soft Tissue Assessment Soft Tissue Mobility Assessment significant tenderness to pressure at R QL, paraspinals, R lateral quad, IT band and patella tendon PT-OP-J Posture/Palpation/Skin Start: 03/09/20 12:58 Freq: Status: Active Protocol: Document 03/09/20 14:26 (Rec: 03/09/20 15:16 [email or web address]) Posture Evaluation Position Standing Evaluation View Anterior Shoulder Posture (R) Elevated PT-OP-K Range of Motion Start: 03/09/20 12:58 Freq: Status: Active Protocol: Document 03/09/20 14:26 HH (Rec: 03/09/20 15:16 [email or web address]) Hip Goniometric Range of Motion Hip Left Active Internal Rotation 45 External Rotation 50 Right Active Hip ROM WFL Yes Testing Position Supine Internal Rotation 45 External Rotation 50 Knee Goniometric Range of Motion Knee Right Knee ROM WFL Yes Patient Position Supine Flexion Active (degrees) 142 Comments tightness and discomfort at end range Left Knee ROM WFL Yes Patient Position Supine Flexion Active (degrees) 155 Ankle and Foot Goniometric Range of Motion Ankle and Foot ROM Limitations Comments knee to wall test in lunges position R= 4 away from wall L= 5 away from wall PT-OP-L Special Tests Start: 03/09/20 12:58 Freq: Status: Active Protocol: Document 03/09/20 14:26 HH (Rec: 03/09/20 15:16 [email or web address]) Special Tests Knee Special Tests Donavan Test Results +Ve R Comments pain at distal quad and patella tendon PT-OP-M Strength Start: 03/09/20 12:58 Freq: Status: Active Protocol: Document 03/09/20 14:26 HH (Rec: 03/09/20 15:16 [email or web address]) Hip Strength Hip Manual Muscle Testing Right Flexion (L2) 4- Good- Extension (S1) 4- Good- Abduction 4- Good- Adduction 4- Good- Left Flexion (L2) 4 Good Extension (S1) 4 Good Abduction 4 Good Adduction 4 Good Knee Strength Knee Manual Muscle Testing Right Flexion (S2) 4- Good- Extension (L3) 4+ Good+ Left Flexion (S2) 4+ Good+ Extension (L3) 4+ Good+ Ankle/Foot Strength Ankle and Foot Manual Muscle Testing Right Dorsiflexion (L4) 5 Normal Plantarflexion (S1) 5 Normal Left Dorsiflexion (L4) 5 Normal Plantarflexion (S1) 5 Normal PT-OP-Q Treatments Start: 03/09/20 12:58 Freq: Status: Active Protocol: Document 04/28/20 14:37 HH (Rec: 04/28/20 15:47 HH [id number]) Cardio Equipment Bicycle (Upright) Duration (Minutes) 5 Resistance 8 Therapeutic Exercises Supine Exercises bridging Side bilateral Equipment Used red band Reps/Minutes 10 x2, 5 secd hold piriformis stretch Side bilateral Reps/Minutes 15secs hold x 4 Comments for HEP Standing Exercises crab walk Side bilateral Equipment Used band at forefoot Reps/Minutes 10 ft x 4 Comments glute burner air squat Equipment Used with vinay board and red band Reps/Minutes 10 x 2 calf stretch Side bilateral Equipment Used ivnay board Reps/Minutes 15 sec hold x5 Manual Therapy Treatment Soft Tissue Mobilization QL Mobilization Type Sustained Pressure,Trigger Point Release Intensity/Depth Moderate Body Position Sidelying Comments increased tenderness to pressure noted at R QL R glute Mobilization Type Sustained Pressure,Trigger Point Release Intensity/Depth Moderate Body Position Sidelying PT-OP-T Assessment and Plan Start: 03/09/20 12:58 Freq: Status: Active Protocol: Document 04/28/20 14:37 HH (Rec: 04/28/20 15:47 HH [id number]) Physical Therapy Assessment Goals strength Impairment single leg squat on R= 21 inches, L = 18 inches Short Term Goal (STG) pt will increase her R LE stability and strength to be able to complete 5 times with minimal discomfort from 19 inches chair STG Duration 4 weeks Retirement Goal (LTG) pt will increase her R LE stability and strength to be able to complete 10 times with minimal discomfort from 18 inches chair LTG Duration 8 weeks pain Impairment 3/10 pain Retirement Goal (LTG) pt will not have R LE pain during her crossfit training and long runs LTG Duration 8 weeks LEFS Impairment pt scores 63 on LEFS [employer] Goal (LTG) pt will score >70 on LEFS to improve her quality of life including being able to tolerate prolonged sitting > 1hours, sleeping on her R side and lift. LTG Duration 8 weeks single leg stability Impairment star test Short Term Goal (STG) 03/09 IE on RLE fwd= 26, lateral= 27 on LLE fwd= 23, lateral= 27 Retirement Goal (LTG) pt will improve his single leg stability to be able to reach symmetrical result on star excursion test. LTG Duration 8 weeks Assessment Summary Assessment pt had a flare up at R hip after a 5 hr hike 2 weeks. Increased tonicity noted at R SIJ region. Pt caitie session well with glute stretch and hip stabilizatoin ex. Physical Therapy Plan Frequency and Duration Frequency of Treatment 1x/Week Duration of Treatment 4 weeks Plan of Care Start Date 03/09/20 Plan of Care End Date 05/08/20 Next Visit Focus/Plan Next Note Type Treatment Note Next Visit Plan check pelvic rotation, innominate, scoliosis, STM on quad , quad tendon, hip flexor stretch
--- NOTE | 2020-05-05 15:49 | PT.OPPOC ---
Physical, Occupational & Speech Therapy At [facility] Current Diagnoses Other chronic pain (05/05/20) Pain in right knee (05/05/20) Visit Care Team Role Provider Type GREG Vega Attending Provider Advanced Equal Opportunity Assistant Family Provider Primary Care Provider Referring Provider Specialty: Family Practice Address: [address] [place] [address], [facility] Email: [email or web address] Plan Of Care PT-OP-T Assessment and Plan Start: 03/09/20 12:58 Freq: Status: Active Protocol: Document 05/05/20 14:35 HH (Rec: 05/05/20 15:48 HH [id number]) Physical Therapy Assessment Goals strength Impairment single leg squat on R= 21 inches, L = 18 inches Short Term Goal (STG) pt will increase her R LE stability and strength to be able to complete 5 times with minimal discomfort from 19 inches chair STG Duration 4 weeks Halfway Goal (LTG) pt will increase her R LE stability and strength to be able to complete 10 times with minimal discomfort from 18 inches chair LTG Duration 8 weeks pain Impairment 3/10 pain Halfway Goal (LTG) pt will not have R LE pain during her crossfit training and long runs LTG Duration 8 weeks LEFS Impairment pt scores 63 on LEFS Halfway Goal (LTG) pt will score >70 on LEFS to improve her quality of life including being able to tolerate prolonged sitting > 1hours, sleeping on her R side and lift. LTG Duration 8 weeks Progress Towards Goals Progress Towards Goals Progressing Toward Goals Assessment Summary Assessment Pt cont to have symptoms with workout that involves single leg balance and strengthening ex during her crossfit workout . However, her symptoms and overall stability have been improving and she will continue benefit from skilled therapy to improve her overall SL stability and strength. Physical Therapy Plan Frequency and Duration Frequency of Treatment 1x/Week Duration of Treatment 4 weeks Plan of Care Start Date 05/05/20 Plan of Care End Date 06/04/20 Therapeutic Interventions Therapeutic Interventions Balance Training,Gait Training ,Home Exercise Program,Joint Mobilizations,Manual Therapy, Neuromuscular Re-education, Patient/Caregiver Education, Self-Care/Home Management,Soft Tissue Mobilization,Taping, Therapeutic Activities, Therapeutic Exercises Modalities Cold Pack/Ice Massage,Electric Stimulation,Hot Packs, Infrared Therapy,Ultrasound Next Visit Focus/Plan Next Note Type Treatment Note Next Visit Plan check pelvic rotation, innominate, scoliosis, STM on quad , quad tendon, hip flexor stretch Plan of Care Dates Plan of Care Start Date 05/05/20 Plan of Care End Date 06/04/20 Electronically Signed by: Chetna Fulton, PT 05/05/20 [id number] Please Sign and Return: I have reviewed this Plan of Care and certify that the skilled therapy services above are required to meet the patient?s needs. Physician Signature Date Printed Name and Credentials Clinical Instructor Signature Printed Name and Credentials
--- NOTE | 2020-05-05 15:49 | PT.OTN ---
Current Diagnoses Other chronic pain (05/05/20) Pain in right knee (05/05/20) Physical Therapy Treatment Note PT-OP-A Visit Information Start: 03/09/20 12:58 Freq: Status: Active Protocol: Document 05/05/20 14:35 HH (Rec: 05/05/20 15:48 [id number]) Out-Patient Physical Therapy Visit Information Visit Information Visit Type Treatment Note Visit Start Time 14:32 Visit Stop Time 15:15 Total Visit Minutes 43 Visit Number 8/60 Number of BLUEPRINT DEVELOPER Visits 0 PT-OP-B Current Condition Start: 03/09/20 12:58 Freq: Status: Active Protocol: Document 03/09/20 14:26 HH (Rec: 03/09/20 15:16 HH [email or web address]) Current Condition History of Current Condition Onset Date many years ago Current Complaints R knee and R hip pain History of Current Condition Pt is an active 39yo female here for chronic R knee pain and new onset of R hip pain. Pt stated she fell a few months ago and landed on lateral side of her R hip. She stated that her whole lateral side has been hurting (pain3/ 10) since, along with tingling and numbness sensation to lateral aspect of RLE. She has been compensating by shifting her weight over to her L side for lots of activities such as running, standing and carrying kids as she stated. Also, pt stated she has L knee discomfort since 10 years ago after she hyperextended her knee while climbing stairs. She had MRI before with negative findings. She has pain 3/10 at her R knee cap region and she c/o being inactive tends to make her whole R leg stiff. Pt does crossfit 3-5 times/ week and run approx 13 miles during the weekend. Her goal is to be able to run 50 miles / month. Prior Treatments and Tests MRI from last year= negative findings Treatment Goals Patient/Caregiver Goals 1. to be able to ex and perform daily activities witohut RLE discomfort 2. to be able to run 50 miles a month Personal Factors Other Personal Factors That May Effect N/A Therapy/Recovery PT-OP-C Subjective Start: 03/09/20 12:58 Freq: Status: Active Protocol: Document 05/05/20 14:35 HH (Rec: 05/05/20 15:48 [id number]) OP-PT Subjective Patient Comments Patient Comments I was doing good after my last friday workout but then My R hip hurts again after the workout with running and step up. Patient Reported Progress Improving PT-OP-D Balance Start: 03/09/20 12:58 Freq: Status: Active Protocol: Document 03/09/20 14:26 HH (Rec: 03/09/20 15:16 [email or web address]) Balance Tests Single Limb Standing Single Limb- Right >60 Single Limb- Left >60 Other Other Balance Tests Performed excessive R weight shift noted standing on RLE, normal = LLE PT-OP-E Functional Tests Start: 03/09/20 12:58 Freq: Status: Active Protocol: Document 03/09/20 14:26 HH (Rec: 03/09/20 15:16 [email or web address]) Functional Tests Star Excursion Balance Test Score on RLE fwd= 26, lateral= 27 on LLE fwd= 23, lateral= 27 Single Leg Squat Test Comment R =21 , L=18 PT-OP-F Manual Assessment Start: 03/09/20 12:58 Freq: Status: Active Protocol: Document 03/09/20 14:26 HH (Rec: 03/09/20 15:16 [email or web address]) Manual Assessments Soft Tissue Assessment Soft Tissue Mobility Assessment significant tenderness to pressure at R QL, paraspinals, R lateral quad, IT band and patella tendon PT-OP-J Posture/Palpation/Skin Start: 03/09/20 12:58 Freq: Status: Active Protocol: Document 03/09/20 14:26 (Rec: 03/09/20 15:16 [email or web address]) Posture Evaluation Position Standing Evaluation View Anterior Shoulder Posture (R) Elevated PT-OP-K Range of Motion Start: 03/09/20 12:58 Freq: Status: Active Protocol: Document 03/09/20 14:26 HH (Rec: 03/09/20 15:16 [email or web address]) Hip Goniometric Range of Motion Hip Left Active Internal Rotation 45 External Rotation 50 Right Active Hip ROM WFL Yes Testing Position Supine Internal Rotation 45 External Rotation 50 Knee Goniometric Range of Motion Knee Right Knee ROM WFL Yes Patient Position Supine Flexion Active (degrees) 142 Comments tightness and discomfort at end range Left Knee ROM WFL Yes Patient Position Supine Flexion Active (degrees) 155 Ankle and Foot Goniometric Range of Motion Ankle and Foot ROM Limitations Comments knee to wall test in lunges position R= 4 away from wall L= 5 away from wall PT-OP-L Special Tests Start: 03/09/20 12:58 Freq: Status: Active Protocol: Document 03/09/20 14:26 HH (Rec: 03/09/20 15:16 [email or web address]) Special Tests Knee Special Tests Donavan Test Results +Ve R Comments pain at distal quad and patella tendon PT-OP-M Strength Start: 03/09/20 12:58 Freq: Status: Active Protocol: Document 03/09/20 14:26 HH (Rec: 03/09/20 15:16 [email or web address]) Hip Strength Hip Manual Muscle Testing Right Flexion (L2) 4- Good- Extension (S1) 4- Good- Abduction 4- Good- Adduction 4- Good- Left Flexion (L2) 4 Good Extension (S1) 4 Good Abduction 4 Good Adduction 4 Good Knee Strength Knee Manual Muscle Testing Right Flexion (S2) 4- Good- Extension (L3) 4+ Good+ Left Flexion (S2) 4+ Good+ Extension (L3) 4+ Good+ Ankle/Foot Strength Ankle and Foot Manual Muscle Testing Right Dorsiflexion (L4) 5 Normal Plantarflexion (S1) 5 Normal Left Dorsiflexion (L4) 5 Normal Plantarflexion (S1) 5 Normal PT-OP-Q Treatments Start: 03/09/20 12:58 Freq: Status: Active Protocol: Document 05/05/20 14:35 HH (Rec: 05/05/20 15:48 HH [id number]) Cardio Equipment Bicycle (Upright) Duration (Minutes) 5 Resistance 8 Therapeutic Exercises Supine Exercises bridging Side bilateral Equipment Used red band then therapy ball Reps/Minutes 10 x2, 3 secd hold piriformis stretch Side bilateral Reps/Minutes 15secs hold x 4 Comments for HEP Standing Exercises crab walk Side bilateral Equipment Used band at forefoot Reps/Minutes 10 ft x 4 Comments glute burner SL squat Standing Exercise Name runner squat Side bilateral Reps/Minutes [address] Standing Exercise Name laterally only Side bilateral Reps/Minutes 10 x2 lunges Side bilateral Equipment Used level 1 band at knee Reps/Minutes 8 x2 RDL Side bilateral Reps/Minutes 8 x2 Manual Therapy Treatment Soft Tissue Mobilization R glute Mobilization Type Sustained Pressure,Trigger Point Release Intensity/Depth Moderate Body Position Sidelying PT-OP-T Assessment and Plan Start: 03/09/20 12:58 Freq: Status: Active Protocol: Document 05/05/20 14:35 HH (Rec: 05/05/20 15:48 HH [id number]) Physical Therapy Assessment Goals strength Impairment single leg squat on R= 21 inches, L = 18 inches Short Term Goal (STG) pt will increase her R LE stability and strength to be able to complete 5 times with minimal discomfort from 19 inches chair STG Duration 4 weeks Personal Banker Goal (LTG) pt will increase her R LE stability and strength to be able to complete 10 times with minimal discomfort from 18 inches chair LTG Duration 8 weeks pain Impairment 3/10 pain Assisted Goal (LTG) pt will not have R LE pain during her crossfit training and long runs LTG Duration 8 weeks LEFS Impairment pt scores 63 on LEFS Assisted Goal (LTG) pt will score >70 on LEFS to improve her quality of life including being able to tolerate prolonged sitting > 1hours, sleeping on her R side and lift. LTG Duration 8 weeks Progress Towards Goals Progress Towards Goals Progressing Toward Goals Assessment Summary Assessment Pt cont to have symptoms with workout that involves single leg balance and strengthening ex during her crossfit workout . However, her symptoms and overall stability have been improving and she will continue benefit from skilled therapy to improve her overall SL stability and strength. Physical Therapy Plan Frequency and Duration Frequency of Treatment 1x/Week Duration of Treatment 4 weeks Plan of Care Start Date 05/05/20 Plan of Care End Date 06/04/20 Therapeutic Interventions Therapeutic Interventions Balance Training,Gait Training ,Home Exercise Program,Joint Mobilizations,Manual Therapy, Neuromuscular Re-education, Patient/Caregiver Education, Self-Care/Home Management,Soft Tissue Mobilization,Taping, Therapeutic Activities, Therapeutic Exercises Modalities Cold Pack/Ice Massage,Electric Stimulation,Hot Packs, Infrared Therapy,Ultrasound Next Visit Focus/Plan Next Note Type Treatment Note Next Visit Plan check pelvic rotation, innominate, scoliosis, STM on quad , quad tendon, hip flexor stretch
--- NOTE | 2020-05-12 16:22 | PT.OTN ---
Current Diagnoses Other chronic pain (05/12/20) Pain in right knee (05/12/20) Physical Therapy Treatment Note PT-OP-A Visit Information Start: 03/09/20 12:58 Freq: Status: Active Protocol: Document 05/12/20 14:41 HH (Rec: 05/12/20 16:22 [id number]) Out-Patient Physical Therapy Visit Information Visit Information Visit Type Treatment Note Visit Start Time 14:34 Visit Stop Time 15:15 Total Visit Minutes 41 Visit Number 9/60 Number of USED CAR LOT PORTER Visits 0 PT-OP-B Current Condition Start: 03/09/20 12:58 Freq: Status: Active Protocol: Document 03/09/20 14:26 HH (Rec: 03/09/20 15:16 [email or web address]) Current Condition History of Current Condition Onset Date many years ago Current Complaints R knee and R hip pain History of Current Condition Pt is an active 39yo female here for chronic R knee pain and new onset of R hip pain. Pt stated she fell a few months ago and landed on lateral side of her R hip. She stated that her whole lateral side has been hurting (pain3/ 10) since, along with tingling and numbness sensation to lateral aspect of RLE. She has been compensating by shifting her weight over to her L side for lots of activities such as running, standing and carrying kids as she stated. Also, pt stated she has L knee discomfort since 10 years ago after she hyperextended her knee while climbing stairs. She had MRI before with negative findings. She has pain 3/10 at her R knee cap region and she c/o being inactive tends to make her whole R leg stiff. Pt does crossfit 3-5 times/ week and run approx 13 miles during the weekend. Her goal is to be able to run 50 miles / month. Prior Treatments and Tests MRI from last year= negative findings Treatment Goals Patient/Caregiver Goals 1. to be able to ex and perform daily activities witohut RLE discomfort 2. to be able to run 50 miles a month Personal Factors Other Personal Factors That May Effect N/A Therapy/Recovery PT-OP-C Subjective Start: 03/09/20 12:58 Freq: Status: Active Protocol: Document 05/12/20 14:41 HH (Rec: 05/12/20 16:22 [id number]) OP-PT Subjective Patient Comments Patient Comments Im doing pretty good and my workout didnt bother me but i did my 2 long runs this week but the 4 mile one from today bothers me R hip. Patient Reported Progress Improving PT-OP-D Balance Start: 03/09/20 12:58 Freq: Status: Active Protocol: Document 03/09/20 14:26 HH (Rec: 03/09/20 15:16 [email or web address]) Balance Tests Single Limb Standing Single Limb- Right >60 Single Limb- Left >60 Other Other Balance Tests Performed excessive R weight shift noted standing on RLE, normal = LLE PT-OP-E Functional Tests Start: 03/09/20 12:58 Freq: Status: Active Protocol: Document 03/09/20 14:26 HH (Rec: 03/09/20 15:16 [email or web address]) Functional Tests Star Excursion Balance Test Score on RLE fwd= 26, lateral= 27 on LLE fwd= 23, lateral= 27 Single Leg Squat Test Comment R =21 , L=18 PT-OP-F Manual Assessment Start: 03/09/20 12:58 Freq: Status: Active Protocol: Document 03/09/20 14:26 HH (Rec: 03/09/20 15:16 [email or web address]) Manual Assessments Soft Tissue Assessment Soft Tissue Mobility Assessment significant tenderness to pressure at R QL, paraspinals, R lateral quad, IT band and patella tendon PT-OP-J Posture/Palpation/Skin Start: 03/09/20 12:58 Freq: Status: Active Protocol: Document 03/09/20 14:26 HH (Rec: 03/09/20 15:16 [email or web address]) Posture Evaluation Position Standing Evaluation View Anterior Shoulder Posture (R) Elevated PT-OP-K Range of Motion Start: 03/09/20 12:58 Freq: Status: Active Protocol: Document 03/09/20 14:26 HH (Rec: 03/09/20 15:16 [email or web address]) Hip Goniometric Range of Motion Hip Left Active Internal Rotation 45 External Rotation 50 Right Active Hip ROM WFL Yes Testing Position Supine Internal Rotation 45 External Rotation 50 Knee Goniometric Range of Motion Knee Right Knee ROM WFL Yes Patient Position Supine Flexion Active (degrees) 142 Comments tightness and discomfort at end range Left Knee ROM WFL Yes Patient Position Supine Flexion Active (degrees) 155 Ankle and Foot Goniometric Range of Motion Ankle and Foot ROM Limitations Comments knee to wall test in lunges position R= 4 away from wall L= 5 away from wall PT-OP-L Special Tests Start: 03/09/20 12:58 Freq: Status: Active Protocol: Document 03/09/20 14:26 (Rec: 03/09/20 15:16 [email or web address]) Special Tests Knee Special Tests Donavan Test Results +Ve R Comments pain at distal quad and patella tendon PT-OP-M Strength Start: 03/09/20 12:58 Freq: Status: Active Protocol: Document 03/09/20 14:26 (Rec: 03/09/20 15:16 [email or web address]) Hip Strength Hip Manual Muscle Testing Right Flexion (L2) 4- Good- Extension (S1) 4- Good- Abduction 4- Good- Adduction 4- Good- Left Flexion (L2) 4 Good Extension (S1) 4 Good Abduction 4 Good Adduction 4 Good Knee Strength Knee Manual Muscle Testing Right Flexion (S2) 4- Good- Extension (L3) 4+ Good+ Left Flexion (S2) 4+ Good+ Extension (L3) 4+ Good+ Ankle/Foot Strength Ankle and Foot Manual Muscle Testing Right Dorsiflexion (L4) 5 Normal Plantarflexion (S1) 5 Normal Left Dorsiflexion (L4) 5 Normal Plantarflexion (S1) 5 Normal PT-OP-Q Treatments Start: 03/09/20 12:58 Freq: Status: Active Protocol: Document 05/12/20 14:41 (Rec: 05/12/20 16:22 [id number]) Cardio Equipment Treadmill Duration (Minutes) 5 Speed 4.5 Incline 0 Other L hip drop noted during SLS on RLE Therapeutic Exercises Sidelying Exercises clam shell Side right Reps/Minutes 8 x2 Standing Exercises crab walk Side bilateral Equipment Used band at forefoot Reps/Minutes 10 ft x 4 Comments glute burner SL squat Standing Exercise Name runner squat Side bilateral Reps/Minutes [address] Standing Exercise Name 3 ways Side bilateral Reps/Minutes 10 x2 step up Side bilateral Reps/Minutes 12 inch box RDL Side bilateral Reps/Minutes 8 x2 Manual Therapy Treatment Soft Tissue Mobilization R glute Mobilization Type Sustained Pressure,Trigger Point Release Intensity/Depth Moderate Body Position Sidelying PT-OP-T Assessment and Plan Start: 03/09/20 12:58 Freq: Status: Active Protocol: Document 05/12/20 14:41 (Rec: 05/12/20 16:22 [id number]) Physical Therapy Assessment Goals strength Impairment single leg squat on R= 21 inches, L = 18 inches Short Term Goal (STG) pt will increase her R LE stability and strength to be able to complete 5 times with minimal discomfort from 19 inches chair STG Duration 4 weeks Penitentiary Goal (LTG) pt will increase her R LE stability and strength to be able to complete 10 times with minimal discomfort from 18 inches chair LTG Duration 8 weeks pain Impairment 3/10 pain Penitentiary Goal (LTG) pt will not have R LE pain during her crossfit training and long runs LTG Duration 8 weeks LEFS Impairment pt scores 63 on LEFS Penitentiary Goal (LTG) pt will score >70 on LEFS to improve her quality of life including being able to tolerate prolonged sitting > 1hours, sleeping on her R side and lift. LTG Duration 8 weeks single leg stability Impairment star test Short Term Goal (STG) 03/09 IE on RLE fwd= 26, lateral= 27 on LLE fwd= 23, lateral= 27 Penitentiary Goal (LTG) pt will improve his single leg stability to be able to reach symmetrical result on star excursion test. LTG Duration 8 weeks Assessment Summary Assessment Pt has no symptoms with B LE strnegthening ex but discomfort during SL close chain exercise / running. Performed running assessment today and pt does show L hip drop during SL stance on RLE but she did not c/o pain after a thorough warm up. Will cont target SL stability Physical Therapy Plan Frequency and Duration Frequency of Treatment 1x/Week Duration of Treatment 4 weeks Plan of Care Start Date 05/05/20 Plan of Care End Date 06/04/20 Next Visit Focus/Plan Next Note Type Treatment Note Next Visit Plan check pelvic rotation, innominate, scoliosis, STM on quad , quad tendon, hip flexor stretch
--- NOTE | 2020-05-19 16:17 | PT.OTN ---
Current Diagnoses Other chronic pain (05/19/20) Pain in right knee (05/19/20) Physical Therapy Treatment Note PT-OP-A Visit Information Start: 03/09/20 12:58 Freq: Status: Active Protocol: Document 05/19/20 16:11 HH (Rec: 05/19/20 16:17 [email or web address]) Out-Patient Physical Therapy Visit Information Visit Information Visit Type Progress Note Visit Start Time 14:34 Visit Stop Time 15:19 Total Visit Minutes 45 Visit Number 60 Number of APPETIZER PACKER Visits 0 PT-OP-B Current Condition Start: 03/09/20 12:58 Freq: Status: Active Protocol: Document 03/09/20 14:26 HH (Rec: 03/09/20 15:16 [email or web address]) Current Condition History of Current Condition Onset Date many years ago Current Complaints R knee and R hip pain History of Current Condition Pt is an active 39yo female here for chronic R knee pain and new onset of R hip pain. Pt stated she fell a few months ago and landed on lateral side of her R hip. She stated that her whole lateral side has been hurting (pain3/ 10) since, along with tingling and numbness sensation to lateral aspect of RLE. She has been compensating by shifting her weight over to her L side for lots of activities such as running, standing and carrying kids as she stated. Also, pt stated she has L knee discomfort since 10 years ago after she hyperextended her knee while climbing stairs. She had MRI before with negative findings. She has pain 3/10 at her R knee cap region and she c/o being inactive tends to make her whole R leg stiff. Pt does crossfit 3-5 times/ week and run approx 13 miles during the weekend. Her goal is to be able to run 50 miles / month. Prior Treatments and Tests MRI from last year= negative findings Treatment Goals Patient/Caregiver Goals 1. to be able to ex and perform daily activities witohut RLE discomfort 2. to be able to run 50 miles a month Personal Factors Other Personal Factors That May Effect N/A Therapy/Recovery PT-OP-C Subjective Start: 03/09/20 12:58 Freq: Status: Active Protocol: Document 05/19/20 16:11 HH (Rec: 05/19/20 16:17 [email or web address]) OP-PT Subjective Patient Comments Patient Comments I went to a boxing class twice and we did a lot of jumping which bothers me hip a lot. My knee has been doing good Patient Reported Progress Worse PT-OP-D Balance Start: 03/09/20 12:58 Freq: Status: Active Protocol: Document 03/09/20 14:26 (Rec: 03/09/20 15:16 [email or web address]) Balance Tests Single Limb Standing Single Limb- Right >60 Single Limb- Left >60 Other Other Balance Tests Performed excessive R weight shift noted standing on RLE, normal = LLE PT-OP-E Functional Tests Start: 03/09/20 12:58 Freq: Status: Active Protocol: Document 03/09/20 14:26 HH (Rec: 03/09/20 15:16 [email or web address]) Functional Tests Star Excursion Balance Test Score on RLE fwd= 26, lateral= 27 on LLE fwd= 23, lateral= 27 Single Leg Squat Test Comment R =21 , L=18 PT-OP-F Manual Assessment Start: 03/09/20 12:58 Freq: Status: Active Protocol: Document 03/09/20 14:26 (Rec: 03/09/20 15:16 [email or web address]) Manual Assessments Soft Tissue Assessment Soft Tissue Mobility Assessment significant tenderness to pressure at R QL, paraspinals, R lateral quad, IT band and patella tendon PT-OP-J Posture/Palpation/Skin Start: 03/09/20 12:58 Freq: Status: Active Protocol: Document 03/09/20 14:26 (Rec: 03/09/20 15:16 [email or web address]) Posture Evaluation Position Standing Evaluation View Anterior Shoulder Posture (R) Elevated PT-OP-K Range of Motion Start: 03/09/20 12:58 Freq: Status: Active Protocol: Document 03/09/20 14:26 (Rec: 03/09/20 15:16 [email or web address]) Hip Goniometric Range of Motion Hip Left Active Internal Rotation 45 External Rotation 50 Right Active Hip ROM WFL Yes Testing Position Supine Internal Rotation 45 External Rotation 50 Knee Goniometric Range of Motion Knee Right Knee ROM WFL Yes Patient Position Supine Flexion Active (degrees) 142 Comments tightness and discomfort at end range Left Knee ROM WFL Yes Patient Position Supine Flexion Active (degrees) 155 Ankle and Foot Goniometric Range of Motion Ankle and Foot ROM Limitations Comments knee to wall test in lunges position R= 4 away from wall L= 5 away from wall PT-OP-L Special Tests Start: 03/09/20 12:58 Freq: Status: Active Protocol: Document 03/09/20 14:26 HH (Rec: 03/09/20 15:16 [email or web address]) Special Tests Knee Special Tests Donavan Test Results +Ve R Comments pain at distal quad and patella tendon PT-OP-M Strength Start: 03/09/20 12:58 Freq: Status: Active Protocol: Document 03/09/20 14:26 HH (Rec: 03/09/20 15:16 [email or web address]) Hip Strength Hip Manual Muscle Testing Right Flexion (L2) 4- Good- Extension (S1) 4- Good- Abduction 4- Good- Adduction 4- Good- Left Flexion (L2) 4 Good Extension (S1) 4 Good Abduction 4 Good Adduction 4 Good Knee Strength Knee Manual Muscle Testing Right Flexion (S2) 4- Good- Extension (L3) 4+ Good+ Left Flexion (S2) 4+ Good+ Extension (L3) 4+ Good+ Ankle/Foot Strength Ankle and Foot Manual Muscle Testing Right Dorsiflexion (L4) 5 Normal Plantarflexion (S1) 5 Normal Left Dorsiflexion (L4) 5 Normal Plantarflexion (S1) 5 Normal PT-OP-Q Treatments Start: 03/09/20 12:58 Freq: Status: Active Protocol: Document 05/19/20 16:11 HH (Rec: 05/19/20 16:17 [email or web address]) Cardio Equipment Bicycle (Upright) Duration (Minutes) 8 Resistance 8 Therapeutic Exercises Standing Exercises crab walk Side bilateral Equipment Used band at forefoot Reps/Minutes 10 ft x 4 Comments glute burner SL squat Standing Exercise Name runner squat Side bilateral Reps/Minutes 10 x2 step up Side bilateral Reps/Minutes 12 inch box Manual Therapy Treatment Soft Tissue Mobilization QL Body Location Bilateral Mobilization Type Sustained Pressure,Trigger Point Release Intensity/Depth Deep Body Position Sidelying Comments L worse than R R glute Mobilization Type Sustained Pressure,Trigger Point Release Intensity/Depth Moderate Body Position Sidelying Comments increased tenderness noted. PT-OP-T Assessment and Plan Start: 03/09/20 12:58 Freq: Status: Active Protocol: Document 05/19/20 16:11 HH (Rec: 05/19/20 16:17 [email or web address]) Physical Therapy Assessment Goals strength Impairment single leg squat on R= 21 inches, L = 18 inches Short Term Goal (STG) pt will increase her R LE stability and strength to be able to complete 5 times with minimal discomfort from 19 inches chair STG Duration 4 weeks Bag Worker Goal (LTG) 4 goal met pt is able to complete 10 times with minimal discomfort from 18 inches chair LTG Duration 8 weeks pain Impairment 3/10 pain Short Term Goal (STG) 4 pt is able to complete bilateral LE strengthening ex in Crossfit without discomfort but painful during SL exercises. Bag Worker Goal (LTG) pt will not have R LE pain during her crossfit training and long runs LTG Duration 8 weeks LEFS Impairment pt scores 63 on LEFS Bag Worker Goal (LTG) pt will score >70 on LEFS to improve her quality of life including being able to tolerate prolonged sitting > 1hours, sleeping on her R side and lift. LTG Duration 8 weeks single leg stability Impairment star test Short Term Goal (STG) 05/19 same on RLE fwd= 26, lateral= 27 on LLE fwd= 23, lateral= 27 Bag Worker Goal (LTG) pt will improve his single leg stability to be able to reach symmetrical result on star excursion test. LTG Duration 8 weeks Assessment Summary Assessment Pt has a flare up from jumping ex from her boxing class but cont to do good with BLE exercises from crossfit. Educated pt to be compliant on single leg stability warm up ex prior to any strengthening ex from workout classes. Physical Therapy Plan Frequency and Duration Frequency of Treatment 1x/Week Duration of Treatment 4 weeks Plan of Care Start Date 05/05/20 Plan of Care End Date 06/04/20 Next Visit Focus/Plan Next Note Type Treatment Note Next Visit Plan check pelvic rotation, innominate, scoliosis, STM on quad , quad tendon, hip flexor stretch
--- NOTE | 2020-06-12 16:30 | PT.OPPOC ---
Physical, Occupational & Speech Therapy At [facility] Current Diagnoses Other chronic pain (06/12/20) Pain in right knee (06/12/20) Visit Care Team Role Provider Type GREG Vega Attending Provider Advanced Heating And Ventilation Engineer Family Provider Primary Care Provider Referring Provider Specialty: Family Practice Address: [address] [place] [address], [id number] Email: [email or web address] Plan Of Care PT-OP-T Assessment and Plan Start: 03/09/20 12:58 Freq: Status: Active Protocol: Document 06/12/20 14:32 HH (Rec: 06/12/20 16:27 HH [id number]) Physical Therapy Assessment Goals strength Impairment single leg squat on R= 21 inches, L = 18 inches Short Term Goal (STG) pt will increase her R LE stability and strength to be able to complete 5 times with minimal discomfort from 19 inches chair STG Duration 4 weeks Halfway Goal (LTG) 4 goal met pt is able to complete 10 times with minimal discomfort from 18 inches chair LTG Duration 8 weeks pain Impairment 3/10 pain Short Term Goal (STG) 4/9 pt is able to complete bilateral LE strengthening ex in Crossfit without discomfort but painful during SL exercises. Space Control Supervisor Goal (LTG) 5/3 pt cont in progress, no knee pain during classess but R hip persists. pt will not have R LE pain during her crossfit training and long runs LTG Duration 8 weeks LEFS Impairment pt scores 63 on LEFS Space Control Supervisor Goal (LTG) pt will score >70 on LEFS to improve her quality of life including being able to tolerate prolonged sitting > 1hours, sleeping on her R side and lift. LTG Duration 8 weeks single leg stability Impairment star test Short Term Goal (STG) 4 same on RLE fwd= 26, lateral= 27 on LLE fwd= 23, lateral= 27 Space Control Supervisor Goal (LTG) pt will improve his single leg stability to be able to reach symmetrical result on star excursion test. LTG Duration 8 weeks Progress Towards Goals Progress Towards Goals Slow Progress - Other Assessment Summary Assessment Pt continues to have R hip and nerve pain with WB and SL activities today. However, she no long has R knee pain since IE. Reassessed her LLD today and RLE = 96.5cm, LLE = 95cm. Noticed pt has a longer R tibia and stretching her L hip and lateral trunk line did not improve her leg length. Provided pt with shoelift made by cork 15mm (3x 5mm) and pt did report immediate relief at R hip tension and pain. Educated her to wear them for WB activities. Will assess her tolerance next visit. Pt will continue benefit from skilled therapy to address her LLD, decreased R LE stability and strength. Physical Therapy Plan Frequency and Duration Frequency of Treatment 2x/Week Duration of Treatment 8 weeks Plan of Care Start Date 06/12/20 Plan of Care End Date 08/11/20 Therapeutic Interventions Therapeutic Interventions Balance Training,Gait Training ,Home Exercise Program,Joint Mobilizations,Manual Therapy, Neuromuscular Re-education, Patient/Caregiver Education, Self-Care/Home Management,Soft Tissue Mobilization,Taping, Therapeutic Activities, Therapeutic Exercises Modalities Cold Pack/Ice Massage,Electric Stimulation,Hot Packs, Infrared Therapy,Ultrasound Next Visit Focus/Plan Next Note Type Treatment Note Next Visit Plan check tolerance SL stability R hip strengthening Plan of Care Dates Plan of Care Start Date 06/12/20 Plan of Care End Date 08/11/20 Electronically Signed by: Chetna Fulton PT 06/12/20 2183 Please Sign and Return: I have reviewed this Plan of Care and certify that the skilled therapy services above are required to meet the patient?s needs. Physician Signature Date Printed Name and Credentials Clinical Instructor Signature Printed Name and Credentials
--- NOTE | 2020-06-12 16:30 | PT.OTN ---
Current Diagnoses Other chronic pain (06/12/20) Pain in right knee (06/12/20) Physical Therapy Treatment Note PT-OP-A Visit Information Start: 03/09/20 12:58 Freq: Status: Active Protocol: Document 06/12/20 14:32 HH (Rec: 06/12/20 16:27 [id number]) Out-Patient Physical Therapy Visit Information Visit Information Visit Type Progress Note Visit Start Time 14:35 Visit Stop Time 15:15 Total Visit Minutes 40 Visit Number 60 Number of MEDICAL CODING TECHNICIAN Visits 0 PT-OP-B Current Condition Start: 03/09/20 12:58 Freq: Status: Active Protocol: Document 03/09/20 14:26 HH (Rec: 03/09/20 15:16 [email or web address]) Current Condition History of Current Condition Onset Date many years ago Current Complaints R knee and R hip pain History of Current Condition Pt is an active 39yo female here for chronic R knee pain and new onset of R hip pain. Pt stated she fell a few months ago and landed on lateral side of her R hip. She stated that her whole lateral side has been hurting (pain3/ 10) since, along with tingling and numbness sensation to lateral aspect of RLE. She has been compensating by shifting her weight over to her L side for lots of activities such as running, standing and carrying kids as she stated. Also, pt stated she has L knee discomfort since 10 years ago after she hyperextended her knee while climbing stairs. She had MRI before with negative findings. She has pain 3/10 at her R knee cap region and she c/o being inactive tends to make her whole R leg stiff. Pt does crossfit 3-5 times/ week and run approx 13 miles during the weekend. Her goal is to be able to run 50 miles / month. Prior Treatments and Tests MRI from last year= negative findings Treatment Goals Patient/Caregiver Goals 1. to be able to ex and perform daily activities witohut RLE discomfort 2. to be able to run 50 miles a month Personal Factors Other Personal Factors That May Effect N/A Therapy/Recovery PT-OP-C Subjective Start: 03/09/20 12:58 Freq: Status: Active Protocol: Document 06/12/20 14:32 HH (Rec: 06/12/20 16:27 [id number]) OP-PT Subjective Patient Comments Patient Comments My R knee is doing good and it doesnt bother me. But my R hip is still hurting me espcially stainding on it for a long time and going to crossfit class. Patient Reported Progress Same PT-OP-D Balance Start: 03/09/20 12:58 Freq: Status: Active Protocol: Document 03/09/20 14:26 (Rec: 03/09/20 15:16 [email or web address]) Balance Tests Single Limb Standing Single Limb- Right >60 Single Limb- Left >60 Other Other Balance Tests Performed excessive R weight shift noted standing on RLE, normal = LLE PT-OP-E Functional Tests Start: 03/09/20 12:58 Freq: Status: Active Protocol: Document 03/09/20 14:26 (Rec: 03/09/20 15:16 [email or web address]) Functional Tests Star Excursion Balance Test Score on RLE fwd= 26, lateral= 27 on LLE fwd= 23, lateral= 27 Single Leg Squat Test Comment R =21 , L=18 PT-OP-F Manual Assessment Start: 03/09/20 12:58 Freq: Status: Active Protocol: Document 03/09/20 14:26 (Rec: 03/09/20 15:16 [email or web address]) Manual Assessments Soft Tissue Assessment Soft Tissue Mobility Assessment significant tenderness to pressure at R QL, paraspinals, R lateral quad, IT band and patella tendon PT-OP-J Posture/Palpation/Skin Start: 03/09/20 12:58 Freq: Status: Active Protocol: Document 06/12/20 16:27 (Rec: 06/12/20 16:29 [id number]) Palpation Assessment Location LLD Palpation Details RLE = 96.5 cm (belly button to medial malleolus) LLE = 95 cm PT-OP-K Range of Motion Start: 03/09/20 12:58 Freq: Status: Active Protocol: Document 03/09/20 14:26 (Rec: 03/09/20 15:16 [email or web address]) Hip Goniometric Range of Motion Hip Left Active Internal Rotation 45 External Rotation 50 Right Active Hip ROM WFL Yes Testing Position Supine Internal Rotation 45 External Rotation 50 Knee Goniometric Range of Motion Knee Right Knee ROM WFL Yes Patient Position Supine Flexion Active (degrees) 142 Comments tightness and discomfort at end range Left Knee ROM WFL Yes Patient Position Supine Flexion Active (degrees) 155 Ankle and Foot Goniometric Range of Motion Ankle and Foot ROM Limitations Comments knee to wall test in lunges position R= 4 away from wall L= 5 away from wall PT-OP-L Special Tests Start: 03/09/20 12:58 Freq: Status: Active Protocol: Document 03/09/20 14:26 (Rec: 03/09/20 15:16 [email or web address]) Special Tests Knee Special Tests Donavan Test Results +Ve R Comments pain at distal quad and patella tendon PT-OP-M Strength Start: 03/09/20 12:58 Freq: Status: Active Protocol: Document 03/09/20 14:26 (Rec: 03/09/20 15:16 [email or web address]) Hip Strength Hip Manual Muscle Testing Right Flexion (L2) 4- Good- Extension (S1) 4- Good- Abduction 4- Good- Adduction 4- Good- Left Flexion (L2) 4 Good Extension (S1) 4 Good Abduction 4 Good Adduction 4 Good Knee Strength Knee Manual Muscle Testing Right Flexion (S2) 4- Good- Extension (L3) 4+ Good+ Left Flexion (S2) 4+ Good+ Extension (L3) 4+ Good+ Ankle/Foot Strength Ankle and Foot Manual Muscle Testing Right Dorsiflexion (L4) 5 Normal Plantarflexion (S1) 5 Normal Left Dorsiflexion (L4) 5 Normal Plantarflexion (S1) 5 Normal PT-OP-Q Treatments Start: 03/09/20 12:58 Freq: Status: Active Protocol: Document 06/12/20 14:32 (Rec: 06/12/20 16:27 [id number]) Manual Therapy Treatment Soft Tissue Mobilization QL Body Location bilateral Mobilization Type Sustained Pressure,Trigger Point Release Intensity/Depth Deep Body Position Sidelying Comments L worse than R R glute Mobilization Type Sustained Pressure,Trigger Point Release Intensity/Depth Moderate Body Position Sidelying Comments increased tenderness noted. Orthotic/Prosthetic Management and Training Treatment Details of Training provided 3x 5 mm cork layers as shoe lift for patient on LLE. Pt stated she felt her weight distribution as balanced and less R hip pain and nerve tension after. 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 PT-OP-T Assessment and Plan Start: 03/09/20 12:58 Freq: Status: Active Protocol: Document 06/12/20 14:32 (Rec: 06/12/20 16:27 [id number]) Physical Therapy Assessment Goals strength Impairment single leg squat on R= 21 inches, L = 18 inches Short Term Goal (STG) pt will increase her R LE stability and strength to be able to complete 5 times with minimal discomfort from 19 inches chair STG Duration 4 weeks Telephone Engineer Goal (LTG) 05/19 goal met pt is able to complete 10 times with minimal discomfort from 18 inches chair LTG Duration 8 weeks pain Impairment 3/10 pain Short Term Goal (STG) 4 pt is able to complete bilateral LE strengthening ex in Crossfit without discomfort but painful during SL exercises. Correction Goal (LTG) / pt cont in progress, no knee pain during classess but R hip persists. pt will not have R LE pain during her crossfit training and long runs LTG Duration 8 weeks LEFS Impairment pt scores 63 on LEFS Telephone Engineer Goal (LTG) pt will score >70 on LEFS to improve her quality of life including being able to tolerate prolonged sitting > 1hours, sleeping on her R side and lift. LTG Duration 8 weeks single leg stability Impairment star test Short Term Goal (STG) 05/19 same on RLE fwd= 26, lateral= 27 on LLE fwd= 23, lateral= 27 Telephone Engineer Goal (LTG) pt will improve his single leg stability to be able to reach symmetrical result on star excursion test. LTG Duration 8 weeks Progress Towards Goals Progress Towards Goals Slow Progress - Other Assessment Summary Assessment Pt continues to have R hip and nerve pain with WB and SL activities today. However, she no long has R knee pain since IE. Reassessed her LLD today and RLE = 96.5cm, LLE = 95cm. Noticed pt has a longer R tibia and stretching her L hip and lateral trunk line did not improve her leg length. Provided pt with shoelift made by [employer] 15mm (3x 5mm) and pt did report immediate relief at R hip tension and pain. Educated her to wear them for WB activities. Will assess her tolerance next visit. Pt will continue benefit from skilled therapy to address her LLD, decreased R LE stability and strength. Physical Therapy Plan Frequency and Duration Frequency of Treatment 2x/Week Duration of Treatment 8 weeks Plan of Care Start Date 06/12/20 Plan of Care End Date 08/11/20 Therapeutic Interventions Therapeutic Interventions Balance Training,Gait Training ,Home Exercise Program,Joint Mobilizations,Manual Therapy, Neuromuscular Re-education, Patient/Caregiver Education, Self-Care/Home Management,Soft Tissue Mobilization,Taping, Therapeutic Activities, Therapeutic Exercises Modalities Cold Pack/Ice Massage,Electric Stimulation,Hot Packs, Infrared Therapy,Ultrasound Next Visit Focus/Plan Next Note Type Treatment Note Next Visit Plan check tolerance SL stability R hip strengthening
--- NOTE | 2020-06-15 16:20 | PT.OTN ---
Current Diagnoses Other chronic pain (06/15/20) Pain in right knee (06/15/20) Physical Therapy Treatment Note PT-OP-A Visit Information Start: 03/09/20 12:58 Freq: Status: Active Protocol: Document 06/15/20 15:16 HH (Rec: 06/15/20 16:20 [id number]) Out-Patient Physical Therapy Visit Information Visit Information Visit Type Treatment Note Visit Start Time 15:15 Visit Stop Time 16:10 Total Visit Minutes 55 Visit Number Number of WAGON DRIVER Visits 0 PT-OP-B Current Condition Start: 03/09/20 12:58 Freq: Status: Active Protocol: Document 03/09/20 14:26 HH (Rec: 03/09/20 15:16 [email or web address]) Current Condition History of Current Condition Onset Date many years ago Current Complaints R knee and R hip pain History of Current Condition Pt is an active 39yo female here for chronic R knee pain and new onset of R hip pain. Pt stated she fell a few months ago and landed on lateral side of her R hip. She stated that her whole lateral side has been hurting (pain3/ 10) since, along with tingling and numbness sensation to lateral aspect of RLE. She has been compensating by shifting her weight over to her L side for lots of activities such as running, standing and carrying kids as she stated. Also, pt stated she has L knee discomfort since 10 years ago after she hyperextended her knee while climbing stairs. She had MRI before with negative findings. She has pain 3/10 at her R knee cap region and she c/o being inactive tends to make her whole R leg stiff. Pt does crossfit 3-5 times/ week and run approx 13 miles during the weekend. Her goal is to be able to run 50 miles / month. Prior Treatments and Tests MRI from last year= negative findings Treatment Goals Patient/Caregiver Goals 1. to be able to ex and perform daily activities witohut RLE discomfort 2. to be able to run 50 miles a month Personal Factors Other Personal Factors That May Effect N/A Therapy/Recovery PT-OP-C Subjective Start: 03/09/20 12:58 Freq: Status: Active Protocol: Document 06/15/20 15:16 HH (Rec: 06/15/20 16:20 [id number]) OP-PT Subjective Patient Comments Patient Comments my tingling and numbness to my legs are gone after last visit. My R hip bothers me a lot lately but i work out less so it helps a little bit Patient Reported Progress Same PT-OP-D Balance Start: 03/09/20 12:58 Freq: Status: Active Protocol: Document 03/09/20 14:26 (Rec: 03/09/20 15:16 [email or web address]) Balance Tests Single Limb Standing Single Limb- Right >60 Single Limb- Left >60 Other Other Balance Tests Performed excessive R weight shift noted standing on RLE, normal = LLE PT-OP-E Functional Tests Start: 03/09/20 12:58 Freq: Status: Active Protocol: Document 03/09/20 14:26 (Rec: 03/09/20 15:16 [email or web address]) Functional Tests Star Excursion Balance Test Score on RLE fwd= 26, lateral= 27 on LLE fwd= 23, lateral= 27 Single Leg Squat Test Comment R =21 , L=18 PT-OP-F Manual Assessment Start: 03/09/20 12:58 Freq: Status: Active Protocol: Document 03/09/20 14:26 (Rec: 03/09/20 15:16 [email or web address]) Manual Assessments Soft Tissue Assessment Soft Tissue Mobility Assessment significant tenderness to pressure at R QL, paraspinals, R lateral quad, IT band and patella tendon PT-OP-J Posture/Palpation/Skin Start: 03/09/20 12:58 Freq: Status: Active Protocol: Document 06/12/20 16:27 (Rec: 06/12/20 16:29 [id number]) Palpation Assessment Location LLD Palpation Details RLE = 96.5 cm (belly button to medial malleolus) LLE = 95 cm PT-OP-K Range of Motion Start: 03/09/20 12:58 Freq: Status: Active Protocol: Document 03/09/20 14:26 (Rec: 03/09/20 15:16 [email or web address]) Hip Goniometric Range of Motion Hip Left Active Internal Rotation 45 External Rotation 50 Right Active Hip ROM WFL Yes Testing Position Supine Internal Rotation 45 External Rotation 50 Knee Goniometric Range of Motion Knee Right Knee ROM WFL Yes Patient Position Supine Flexion Active (degrees) 142 Comments tightness and discomfort at end range Left Knee ROM WFL Yes Patient Position Supine Flexion Active (degrees) 155 Ankle and Foot Goniometric Range of Motion Ankle and Foot ROM Limitations Comments knee to wall test in lunges position R= 4 away from wall L= 5 away from wall PT-OP-L Special Tests Start: 03/09/20 12:58 Freq: Status: Active Protocol: Document 03/09/20 14:26 (Rec: 03/09/20 15:16 [email or web address]) Special Tests Knee Special Tests Donavan Test Results +Ve R Comments pain at distal quad and patella tendon PT-OP-M Strength Start: 03/09/20 12:58 Freq: Status: Active Protocol: Document 03/09/20 14:26 (Rec: 03/09/20 15:16 [email or web address]) Hip Strength Hip Manual Muscle Testing Right Flexion (L2) 4- Good- Extension (S1) 4- Good- Abduction 4- Good- Adduction 4- Good- Left Flexion (L2) 4 Good Extension (S1) 4 Good Abduction 4 Good Adduction 4 Good Knee Strength Knee Manual Muscle Testing Right Flexion (S2) 4- Good- Extension (L3) 4+ Good+ Left Flexion (S2) 4+ Good+ Extension (L3) 4+ Good+ Ankle/Foot Strength Ankle and Foot Manual Muscle Testing Right Dorsiflexion (L4) 5 Normal Plantarflexion (S1) 5 Normal Left Dorsiflexion (L4) 5 Normal Plantarflexion (S1) 5 Normal PT-OP-Q Treatments Start: 03/09/20 12:58 Freq: Status: Active Protocol: Document 06/15/20 15:16 (Rec: 06/15/20 16:20 [id number]) Therapeutic Exercises Supine Exercises nerve glide Supine Exercise Name sciatic Side right Reps/Minutes 10 x1 supine clam shell Side right Equipment Used yellow band Reps/Minutes 8 x2 bridging Supine Exercise Name bridge hold Side bilateral Equipment Used with yellow band Reps/Minutes 10 x2, 3 secd hold piriformis stretch Side bilateral Reps/Minutes 15secs hold x 4 Prone Exercises birddog Prone Exercise Name uni hip extension Side bilateral Reps/Minutes 8 x2 Comments cues on neutral spine cat camel Reps/Minutes 15 x 1 Comments for HEP Manual Therapy Treatment Soft Tissue Mobilization QL Body Location bilateral Mobilization Type Sustained Pressure,Trigger Point Release Intensity/Depth Deep Body Position Sidelying Comments L worse than R R glute Mobilization Type Sustained Pressure,Trigger Point Release Intensity/Depth Moderate Body Position Sidelying Comments reduced tenderness noted. PT-OP-T Assessment and Plan Start: 03/09/20 12:58 Freq: Status: Active Protocol: Document 06/15/20 15:16 HH (Rec: 06/15/20 16:20 HH [id number]) Physical Therapy Assessment Goals strength Impairment single leg squat on R= 21 inches, L = 18 inches Short Term Goal (STG) pt will increase her R LE stability and strength to be able to complete 5 times with minimal discomfort from 19 inches chair STG Duration 4 weeks Fpc Goal (LTG) 4 goal met pt is able to complete 10 times with minimal discomfort from 18 inches chair LTG Duration 8 weeks pain Impairment 3/10 pain Short Term Goal (STG) 4/9 pt is able to complete bilateral LE strengthening ex in Crossfit without discomfort but painful during SL exercises. [employer] Rol[employer] Goal (LTG) 5/3 pt cont in progress, no knee pain during classess but R hip persists. pt will not have R LE pain during her crossfit training and long runs LTG Duration 8 weeks LEFS Impairment pt scores 63 on LEFS Tin Roller [employer] Mill Goal (LTG) pt will score >70 on LEFS to improve her quality of life including being able to tolerate prolonged sitting > 1hours, sleeping on her R side and lift. LTG Duration 8 weeks single leg stability Impairment star test Short Term Goal (STG) 4 same on RLE fwd= 26, lateral= 27 on LLE fwd= 23, lateral= 27 Fpc Goal (LTG) pt will improve his single leg stability to be able to reach symmetrical result on star excursion test. LTG Duration 8 weeks Assessment Summary Assessment pt has improved tonicity on lumbar and R glute musculature today. Howevre, her slump test was position which indicated poor posterior chain nerve tension. No symptoms after manual threapy and nerve glide. Provided new set of HEP to focus on nerve flexibility and R hip stability. Physical Therapy Plan Frequency and Duration Frequency of Treatment 2x/Week Duration of Treatment 8 weeks Plan of Care Start Date 06/12/20 Plan of Care End Date 08/11/20 Therapeutic Interventions Therapeutic Interventions Balance Training,Gait Training ,Home Exercise Program,Joint Mobilizations,Manual Therapy, Neuromuscular Re-education, Patient/Caregiver Education, Self-Care/Home Management,Soft Tissue Mobilization,Taping, Therapeutic Activities, Therapeutic Exercises Modalities Cold Pack/Ice Massage,Electric Stimulation,Hot Packs, Infrared Therapy,Ultrasound Next Visit Focus/Plan Next Note Type Treatment Note Next Visit Plan check tolerance SL stability R hip strengthening
--- NOTE | 2020-06-23 16:08 | PT-OP ANOTE ---
pt mistakenly thought appt was at the afternoon. Reminded her next appt will be on next friday.
--- NOTE | 2020-06-26 16:23 | PT.OTN ---
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 Pt stated she fell a few months ago and landed on lateral side of her R hip. She stated that her whole lateral side has been hurting (pain3/ 10) since, along with tingling and numbness sensation to lateral aspect of RLE. She has been compensating by shifting her weight over to her L side for lots of activities such as running, standing and carrying kids as she stated. Also, pt stated she has L knee discomfort since 10 years ago after she hyperextended her knee while climbing stairs. She had MRI before with negative findings. She has pain 3/10 at her R knee cap region and she c/o being inactive tends to make her whole R leg stiff. Pt does crossfit 3-5 times/ week and run approx 13 miles during the weekend. Her goal is to be able to run 50 miles / month. Prior Treatments and Tests MRI from last year= negative findings Treatment Goals Patient/Caregiver Goals 1. to be able to ex and perform daily activities witohut RLE discomfort 2. to be able to run 50 miles a month Personal Factors Other Personal Factors That May Effect N/A Therapy/Recovery PT-OP-C Subjective Start: 03/09/20 12:58 Freq: Status: Active Protocol: Document 06/26/20 14:32 HH (Rec: 06/26/20 16:23 [id number]) OP-PT Subjective Patient Comments Patient Comments My hip is doing okay so far and i have been working on my hips a lot. But my R knee is little uncomfortable. Patient Reported Progress Improving PT-OP-D Balance Start: 03/09/20 12:58 Freq: Status: Active Protocol: Document 03/09/20 14:26 (Rec: 03/09/20 15:16 [email or web address]) Balance Tests Single Limb Standing Single Limb- Right >60 Single Limb- Left >60 Other Other Balance Tests Performed excessive R weight shift noted standing on RLE, normal = LLE PT-OP-E Functional Tests Start: 03/09/20 12:58 Freq: Status: Active Protocol: Document 03/09/20 14:26 HH (Rec: 03/09/20 15:16 [email or web address]) Functional Tests Star Excursion Balance Test Score on RLE fwd= 26, lateral= 27 on LLE fwd= 23, lateral= 27 Single Leg Squat Test Comment R =21 , L=18 PT-OP-F Manual Assessment Start: 03/09/20 12:58 Freq: Status: Active Protocol: Document 03/09/20 14:26 HH (Rec: 03/09/20 15:16 [email or web address]) Manual Assessments Soft Tissue Assessment Soft Tissue Mobility Assessment significant tenderness to pressure at R QL, paraspinals, R lateral quad, IT band and patella tendon PT-OP-J Posture/Palpation/Skin Start: 03/09/20 12:58 Freq: Status: Active Protocol: Document 06/12/20 16:27 (Rec: 06/12/20 16:29 [id number]) Palpation Assessment Location LLD Palpation Details RLE = 96.5 cm (belly button to medial malleolus) LLE = 95 cm PT-OP-K Range of Motion Start: 03/09/20 12:58 Freq: Status: Active Protocol: Document 03/09/20 14:26 HH (Rec: 03/09/20 15:16 [email or web address]) Hip Goniometric Range of Motion Hip Left Active Internal Rotation 45 External Rotation 50 Right Active Hip ROM WFL Yes Testing Position Supine Internal Rotation 45 External Rotation 50 Knee Goniometric Range of Motion Knee Right Knee ROM WFL Yes Patient Position Supine Flexion Active (degrees) 142 Comments tightness and discomfort at end range Left Knee ROM WFL Yes Patient Position Supine Flexion Active (degrees) 155 Ankle and Foot Goniometric Range of Motion Ankle and Foot ROM Limitations Comments knee to wall test in lunges position R= 4 away from wall L= 5 away from wall PT-OP-L Special Tests Start: 03/09/20 12:58 Freq: Status: Active Protocol: Document 03/09/20 14:26 (Rec: 03/09/20 15:16 [email or web address]) Special Tests Knee Special Tests Donavan Test Results +Ve R Comments pain at distal quad and patella tendon PT-OP-M Strength Start: 03/09/20 12:58 Freq: Status: Active Protocol: Document 03/09/20 14:26 (Rec: 03/09/20 15:16 [email or web address]) Hip Strength Hip Manual Muscle Testing Right Flexion (L2) 4- Good- Extension (S1) 4- Good- Abduction 4- Good- Adduction 4- Good- Left Flexion (L2) 4 Good Extension (S1) 4 Good Abduction 4 Good Adduction 4 Good Knee Strength Knee Manual Muscle Testing Right Flexion (S2) 4- Good- Extension (L3) 4+ Good+ Left Flexion (S2) 4+ Good+ Extension (L3) 4+ Good+ Ankle/Foot Strength Ankle and Foot Manual Muscle Testing Right Dorsiflexion (L4) 5 Normal Plantarflexion (S1) 5 Normal Left Dorsiflexion (L4) 5 Normal Plantarflexion (S1) 5 Normal PT-OP-Q Treatments Start: 03/09/20 12:58 Freq: Status: Active Protocol: Document 06/26/20 14:32 (Rec: 06/26/20 16:23 [id number]) Cardio Equipment Bicycle (Upright) Duration (Minutes) 6 Resistance 8 Gym Equipment Shuttle Recovery SL jump Details focus on soft landings Resistance #37 Reps/Time 15 x 2, no pain noted SL squat Details band at knee to provide adduction force Resistance #50 Shuttle Recovery Platform Stable Reps/Time 12 times x2 Therapeutic Exercises Supine Exercises nerve glide Supine Exercise Name sciatic Side right Reps/Minutes 10 x1 Comments no pain noted Prone Exercises cat camel Reps/Minutes 15 x 1 Comments for HEP Standing Exercises standing ER Equipment Used red therapy band Reps/Minutes 10 x2 hip dip Side bilateral Reps/Minutes 10 x2 Comments no pain noted crab walk Side bilateral Equipment Used band at forefoot Reps/Minutes 10 ft x 4 Comments glute burner 3 way slider Standing Exercise Name lateral only Side bilateral Reps/Minutes 10 x2 lunges Side bilateral Equipment Used level 1 band at knee Reps/Minutes 8 x2 Manual Therapy Treatment Soft Tissue Mobilization QL Body Location bilateral Mobilization Type Sustained Pressure,Trigger Point Release Intensity/Depth Deep Body Position Sidelying Comments L worse than R R glute Mobilization Type Sustained Pressure,Trigger Point Release Intensity/Depth Moderate Body Position Sidelying Comments reduced tenderness noted. PT-OP-T Assessment and Plan Start: 03/09/20 12:58 Freq: Status: Active Protocol: Document 06/26/20 14:32 HH (Rec: 06/26/20 16:23 HH [id number]) Physical Therapy Assessment Goals strength Impairment single leg squat on R= 21 inches, L = 18 inches Short Term Goal (STG) pt will increase her R LE stability and strength to be able to complete 5 times with minimal discomfort from 19 inches chair STG Duration 4 weeks Nursing Home Goal (LTG) 05/19 goal met pt is able to complete 10 times with minimal discomfort from 18 inches chair LTG Duration 8 weeks pain Impairment 3/10 pain Short Term Goal (STG) 4/9 pt is able to complete bilateral LE strengthening ex in Crossfit without discomfort but painful during SL exercises. Ornamental Painter Goal (LTG) 5/3 pt cont in progress, no knee pain during classess but R hip persists. pt will not have R LE pain during her crossfit training and long runs LTG Duration 8 weeks LEFS Impairment pt scores 63 on LEFS Nursing Home Goal (LTG) pt will score >70 on LEFS to improve her quality of life including being able to tolerate prolonged sitting > 1hours, sleeping on her R side and lift. LTG Duration 8 weeks single leg stability Impairment star test Short Term Goal (STG) 4 same on RLE fwd= 26, lateral= 27 on LLE fwd= 23, lateral= 27 Nursing Home Goal (LTG) pt will improve his single leg stability to be able to reach symmetrical result on star excursion test. LTG Duration 8 weeks Assessment Summary Assessment Pt's radiating pain and tingling/ numbness have gone for the past 2 weeks. She stated Its more controlled now Tx focused on single leg stability and hip stabilization. Noticed pt has difficulty with supine single leg hop on shuttle recovery d/ t fear avoidance and decreased SL stability. Added hip dip for HEP. Physical Therapy Plan Frequency and Duration Frequency of Treatment 2x/Week Duration of Treatment 8 weeks Plan of Care Start Date 06/12/20 Plan of Care End Date 08/11/20 Therapeutic Interventions Therapeutic Interventions Balance Training,Gait Training ,Home Exercise Program,Joint Mobilizations,Manual Therapy, Neuromuscular Re-education, Patient/Caregiver Education, Self-Care/Home Management,Soft Tissue Mobilization,Taping, Therapeutic Activities, Therapeutic Exercises Modalities Cold Pack/Ice Massage,Electric Stimulation,Hot Packs, Infrared Therapy,Ultrasound Next Visit Focus/Plan Next Note Type Treatment Note Next Visit Plan check tolerance SL stability R hip strengthening
--- NOTE | 2020-06-30 14:34 | PT.OTN ---
Current Diagnoses Other chronic pain (06/30/20) Pain in right knee (06/30/20) Physical Therapy Treatment Note PT-OP-A Visit Information Start: 03/09/20 12:58 Freq: Status: Active Protocol: Document 06/30/20 13:38 HH (Rec: 06/30/20 14:33 [id number]) Out-Patient Physical Therapy Visit Information Visit Information Visit Type Treatment Note Visit Start Time 14:32 Visit Stop Time 15:15 Total Visit Minutes 43 Visit Number 13/60 Number of MACHINE II ENGRAVER Visits 0 PT-OP-B Current Condition Start: 03/09/20 12:58 Freq: Status: Active Protocol: Document 03/09/20 14:26 HH (Rec: 03/09/20 15:16 HH [email or web address]) Current Condition History of Current Condition Onset Date many years ago Current Complaints R knee and R hip pain History of Current Condition Pt is an active 39yo female here for chronic R knee pain and new onset of R hip pain. Pt stated she fell a few months ago and landed on lateral side of her R hip. She stated that her whole lateral side has been hurting (pain3/ 10) since, along with tingling and numbness sensation to lateral aspect of RLE. She has been compensating by shifting her weight over to her L side for lots of activities such as running, standing and carrying kids as she stated. Also, pt stated she has L knee discomfort since 10 years ago after she hyperextended her knee while climbing stairs. She had MRI before with negative findings. She has pain 3/10 at her R knee cap region and she c/o being inactive tends to make her whole R leg stiff. Pt does crossfit 3-5 times/ week and run approx 13 miles during the weekend. Her goal is to be able to run 50 miles / month. Prior Treatments and Tests MRI from last year= negative findings Treatment Goals Patient/Caregiver Goals 1. to be able to ex and perform daily activities witohut RLE discomfort 2. to be able to run 50 miles a month Personal Factors Other Personal Factors That May Effect N/A Therapy/Recovery PT-OP-C Subjective Start: 03/09/20 12:58 Freq: Status: Active Protocol: Document 06/30/20 13:38 HH (Rec: 06/30/20 14:33 HH [id number]) OP-PT Subjective Patient Comments Patient Comments My hip is doing pretty good so far. Same for my workouts. Patient Reported Progress Improving PT-OP-D Balance Start: 03/09/20 12:58 Freq: Status: Active Protocol: Document 03/09/20 14:26 HH (Rec: 03/09/20 15:16 [email or web address]) Balance Tests Single Limb Standing Single Limb- Right >60 Single Limb- Left >60 Other Other Balance Tests Performed excessive R weight shift noted standing on RLE, normal = LLE PT-OP-E Functional Tests Start: 03/09/20 12:58 Freq: Status: Active Protocol: Document 03/09/20 14:26 HH (Rec: 03/09/20 15:16 [email or web address]) Functional Tests Star Excursion Balance Test Score on RLE fwd= 26, lateral= 27 on LLE fwd= 23, lateral= 27 Single Leg Squat Test Comment R =21 , L=18 PT-OP-F Manual Assessment Start: 03/09/20 12:58 Freq: Status: Active Protocol: Document 03/09/20 14:26 HH (Rec: 03/09/20 15:16 [email or web address]) Manual Assessments Soft Tissue Assessment Soft Tissue Mobility Assessment significant tenderness to pressure at R QL, paraspinals, R lateral quad, IT band and patella tendon PT-OP-J Posture/Palpation/Skin Start: 03/09/20 12:58 Freq: Status: Active Protocol: Document 06/12/20 16:27 (Rec: 06/12/20 16:29 [id number]) Palpation Assessment Location LLD Palpation Details RLE = 96.5 cm (belly button to medial malleolus) LLE = 95 cm PT-OP-K Range of Motion Start: 03/09/20 12:58 Freq: Status: Active Protocol: Document 03/09/20 14:26 HH (Rec: 03/09/20 15:16 [email or web address]) Hip Goniometric Range of Motion Hip Left Active Internal Rotation 45 External Rotation 50 Right Active Hip ROM WFL Yes Testing Position Supine Internal Rotation 45 External Rotation 50 Knee Goniometric Range of Motion Knee Right Knee ROM WFL Yes Patient Position Supine Flexion Active (degrees) 142 Comments tightness and discomfort at end range Left Knee ROM WFL Yes Patient Position Supine Flexion Active (degrees) 155 Ankle and Foot Goniometric Range of Motion Ankle and Foot ROM Limitations Comments knee to wall test in lunges position R= 4 away from wall L= 5 away from wall PT-OP-L Special Tests Start: 03/09/20 12:58 Freq: Status: Active Protocol: Document 03/09/20 14:26 (Rec: 03/09/20 15:16 [email or web address]) Special Tests Knee Special Tests Donavan Test Results +Ve R Comments pain at distal quad and patella tendon PT-OP-M Strength Start: 03/09/20 12:58 Freq: Status: Active Protocol: Document 03/09/20 14:26 (Rec: 03/09/20 15:16 [email or web address]) Hip Strength Hip Manual Muscle Testing Right Flexion (L2) 4- Good- Extension (S1) 4- Good- Abduction 4- Good- Adduction 4- Good- Left Flexion (L2) 4 Good Extension (S1) 4 Good Abduction 4 Good Adduction 4 Good Knee Strength Knee Manual Muscle Testing Right Flexion (S2) 4- Good- Extension (L3) 4+ Good+ Left Flexion (S2) 4+ Good+ Extension (L3) 4+ Good+ Ankle/Foot Strength Ankle and Foot Manual Muscle Testing Right Dorsiflexion (L4) 5 Normal Plantarflexion (S1) 5 Normal Left Dorsiflexion (L4) 5 Normal Plantarflexion (S1) 5 Normal PT-OP-Q Treatments Start: 03/09/20 12:58 Freq: Status: Active Protocol: Document 06/30/20 13:38 (Rec: 06/30/20 14:33 [id number]) Gym Equipment Shuttle Recovery SL jump Details focus on soft landings Resistance #37 Reps/Time 15 x 2, no pain noted SL squat Details band at knee to provide adduction force Resistance #50 Shuttle Recovery Platform Stable Reps/Time 12 times x2 Therapeutic Exercises Standing Exercises single leg jump Standing Exercise Name on blue foam Reps/Minutes 10 x3 Comments without off the floor standing ER Equipment Used red therapy band Reps/Minutes 10 x2 hip dip Side bilateral Reps/Minutes 10 x2 Comments no pain noted crab walk Side bilateral Equipment Used band at forefoot Reps/Minutes 10 ft x 4 Comments glute burner 3 way slider Standing Exercise Name lateral only Side bilateral Reps/Minutes 10 x2 lunges Side bilateral Equipment Used level 1 band at knee Reps/Minutes 8 x2 Manual Therapy Treatment Soft Tissue Mobilization QL Body Location bilateral Mobilization Type Sustained Pressure,Trigger Point Release Intensity/Depth Deep Body Position Sidelying Comments L worse than R R glute Mobilization Type Sustained Pressure,Trigger Point Release Intensity/Depth Moderate Body Position Sidelying Comments reduced tenderness noted. PT-OP-T Assessment and Plan Start: 03/09/20 12:58 Freq: Status: Active Protocol: Document 06/30/20 13:38 HH (Rec: 06/30/20 14:33 HH [id number]) Physical Therapy Assessment Goals strength Impairment single leg squat on R= 21 inches, L = 18 inches Short Term Goal (STG) pt will increase her R LE stability and strength to be able to complete 5 times with minimal discomfort from 19 inches chair STG Duration 4 weeks [facility] Goal (LTG) 4 goal met pt is able to complete 10 times with minimal discomfort from 18 inches chair LTG Duration 8 weeks pain Impairment 3/10 pain Short Term Goal (STG) 4/9 pt is able to complete bilateral LE strengthening ex in Crossfit without discomfort but painful during SL exercises. [facility] Goal (LTG) 5/3 pt cont in progress, no knee pain during classess but R hip persists. pt will not have R LE pain during her crossfit training and long runs LTG Duration 8 weeks LEFS Impairment pt scores 63 on LEFS Roofing Applicator Goal (LTG) pt will score >70 on LEFS to improve her quality of life including being able to tolerate prolonged sitting > 1hours, sleeping on her R side and lift. LTG Duration 8 weeks single leg stability Impairment star test Short Term Goal (STG) 4 same on RLE fwd= 26, lateral= 27 on LLE fwd= 23, lateral= 27 [facility] Goal (LTG) pt will improve his single leg stability to be able to reach symmetrical result on star excursion test. LTG Duration 8 weeks Assessment Summary Assessment Pt continues to improve withut flare ups and increase in pain lately. Progress to pylometrics with single leg hopping in place (not off the floor) today Physical Therapy Plan Frequency and Duration Frequency of Treatment 2x/Week Duration of Treatment 8 weeks Plan of Care Start Date 06/12/20 Plan of Care End Date 08/11/20 Therapeutic Interventions Therapeutic Interventions Balance Training,Gait Training ,Home Exercise Program,Joint Mobilizations,Manual Therapy, Neuromuscular Re-education, Patient/Caregiver Education, Self-Care/Home Management,Soft Tissue Mobilization,Taping, Therapeutic Activities, Therapeutic Exercises Modalities Cold Pack/Ice Massage,Electric Stimulation,Hot Packs, Infrared Therapy,Ultrasound Next Visit Focus/Plan Next Note Type Treatment Note Next Visit Plan check tolerance SL stability R hip strengthening
--- NOTE | 2020-07-04 16:30 | PT.OTN ---
Current Diagnoses Other chronic pain (07/04/20) Pain in right knee (07/04/20) Physical Therapy Treatment Note PT-OP-A Visit Information Start: 03/09/20 12:58 Freq: Status: Active Protocol: Document 07/04/20 16:24 HH (Rec: 07/04/20 16:30 HH [email or web address]) Out-Patient Physical Therapy Visit Information Visit Information Visit Type Treatment Note Visit Start Time 13:46 Visit Stop Time 14:30 Total Visit Minutes 44 Visit Number 14/60 Number of MANAGER COMMUNITY OUTREACH Visits 0 PT-OP-B Current Condition Start: 03/09/20 12:58 Freq: Status: Active Protocol: Document 03/09/20 14:26 HH (Rec: 03/09/20 15:16 HH [email or web address]) Current Condition History of Current Condition Onset Date many years ago Current Complaints R knee and R hip pain History of Current Condition Pt is an active 39yo female here for chronic R knee pain and new onset of R hip pain. Pt stated she fell a few months ago and landed on lateral side of her R hip. She stated that her whole lateral side has been hurting (pain3/ 10) since, along with tingling and numbness sensation to lateral aspect of RLE. She has been compensating by shifting her weight over to her L side for lots of activities such as running, standing and carrying kids as she stated. Also, pt stated she has L knee discomfort since 10 years ago after she hyperextended her knee while climbing stairs. She had MRI before with negative findings. She has pain 3/10 at her R knee cap region and she c/o being inactive tends to make her whole R leg stiff. Pt does crossfit 3-5 times/ week and run approx 13 miles during the weekend. Her goal is to be able to run 50 miles / month. Prior Treatments and Tests MRI from last year= negative findings Treatment Goals Patient/Caregiver Goals 1. to be able to ex and perform daily activities witohut RLE discomfort 2. to be able to run 50 miles a month Personal Factors Other Personal Factors That May Effect N/A Therapy/Recovery PT-OP-C Subjective Start: 03/09/20 12:58 Freq: Status: Active Protocol: Document 07/04/20 16:24 HH (Rec: 07/04/20 16:30 HH [email or web address]) OP-PT Subjective Patient Comments Patient Comments Im doing good so far even though i did a lot of leg workout recently. But vikash been careful on doing step ups. I also hiked the other day and i felt fine Patient Reported Progress Improving PT-OP-D Balance Start: 03/09/20 12:58 Freq: Status: Active Protocol: Document 03/09/20 14:26 (Rec: 03/09/20 15:16 [email or web address]) Balance Tests Single Limb Standing Single Limb- Right >60 Single Limb- Left >60 Other Other Balance Tests Performed excessive R weight shift noted standing on RLE, normal = LLE PT-OP-E Functional Tests Start: 03/09/20 12:58 Freq: Status: Active Protocol: Document 03/09/20 14:26 (Rec: 03/09/20 15:16 [email or web address]) Functional Tests Star Excursion Balance Test Score on RLE fwd= 26, lateral= 27 on LLE fwd= 23, lateral= 27 Single Leg Squat Test Comment R =21 , L=18 PT-OP-F Manual Assessment Start: 03/09/20 12:58 Freq: Status: Active Protocol: Document 03/09/20 14:26 (Rec: 03/09/20 15:16 [email or web address]) Manual Assessments Soft Tissue Assessment Soft Tissue Mobility Assessment significant tenderness to pressure at R QL, paraspinals, R lateral quad, IT band and patella tendon PT-OP-J Posture/Palpation/Skin Start: 03/09/20 12:58 Freq: Status: Active Protocol: Document 06/12/20 16:27 (Rec: 06/12/20 16:29 [id number]) Palpation Assessment Location LLD Palpation Details RLE = 96.5 cm (belly button to medial malleolus) LLE = 95 cm PT-OP-K Range of Motion Start: 03/09/20 12:58 Freq: Status: Active Protocol: Document 03/09/20 14:26 HH (Rec: 03/09/20 15:16 [email or web address]) Hip Goniometric Range of Motion Hip Left Active Internal Rotation 45 External Rotation 50 Right Active Hip ROM WFL Yes Testing Position Supine Internal Rotation 45 External Rotation 50 Knee Goniometric Range of Motion Knee Right Knee ROM WFL Yes Patient Position Supine Flexion Active (degrees) 142 Comments tightness and discomfort at end range Left Knee ROM WFL Yes Patient Position Supine Flexion Active (degrees) 155 Ankle and Foot Goniometric Range of Motion Ankle and Foot ROM Limitations Comments knee to wall test in lunges position R= 4 away from wall L= 5 away from wall PT-OP-L Special Tests Start: 03/09/20 12:58 Freq: Status: Active Protocol: Document 03/09/20 14:26 (Rec: 03/09/20 15:16 [email or web address]) Special Tests Knee Special Tests Donavan Test Results +Ve R Comments pain at distal quad and patella tendon PT-OP-M Strength Start: 03/09/20 12:58 Freq: Status: Active Protocol: Document 03/09/20 14:26 (Rec: 03/09/20 15:16 [email or web address]) Hip Strength Hip Manual Muscle Testing Right Flexion (L2) 4- Good- Extension (S1) 4- Good- Abduction 4- Good- Adduction 4- Good- Left Flexion (L2) 4 Good Extension (S1) 4 Good Abduction 4 Good Adduction 4 Good Knee Strength Knee Manual Muscle Testing Right Flexion (S2) 4- Good- Extension (L3) 4+ Good+ Left Flexion (S2) 4+ Good+ Extension (L3) 4+ Good+ Ankle/Foot Strength Ankle and Foot Manual Muscle Testing Right Dorsiflexion (L4) 5 Normal Plantarflexion (S1) 5 Normal Left Dorsiflexion (L4) 5 Normal Plantarflexion (S1) 5 Normal PT-OP-Q Treatments Start: 03/09/20 12:58 Freq: Status: Active Protocol: Document 07/04/20 16:24 (Rec: 07/04/20 16:30 [email or web address]) Gym Equipment Shuttle Recovery SL jump Details focus on soft landings Resistance #37 Reps/Time 15 x 2, no pain noted SL squat Details band at knee to provide adduction force Resistance #50 Shuttle Recovery Platform Stable Reps/Time 12 times x2 Therapeutic Exercises Standing Exercises hopping Standing Exercise Name forward hop, lateral hop on blue foam Reps/Minutes 10 x 4 Comments cues on knee alignment single leg jump Standing Exercise Name on blue foam Reps/Minutes 10 x3 Comments without off the floor hip dip Side bilateral Reps/Minutes 10 x2 Comments no pain noted crab walk Side bilateral Equipment Used band at forefoot Reps/Minutes 10 ft x 4 Comments [address]ute burner [address] slider Standing Exercise Name forward and lateral Side bilateral Reps/Minutes 10 x2 lunges Standing Exercise Name slider, back leg slide backward Side bilateral Reps/Minutes 8 x2 Manual Therapy Treatment Soft Tissue Mobilization QL Body Location bilateral Mobilization Type Sustained Pressure,Trigger Point Release Intensity/Depth Deep Body Position Sidelying Comments L worse than R R glute Mobilization Type Sustained Pressure,Trigger Point Release Intensity/Depth Moderate Body Position Sidelying Comments reduced tenderness noted. PT-OP-T Assessment and Plan Start: 03/09/20 12:58 Freq: Status: Active Protocol: Document 07/04/20 16:24 HH (Rec: 07/04/20 16:30 HH [email or web address]) Physical Therapy Assessment Goals strength Impairment single leg squat on R= 21 inches, L = 18 inches Short Term Goal (STG) pt will increase her R LE stability and strength to be able to complete 5 times with minimal discomfort from 19 inches chair STG Duration 4 weeks Longterm Goal (LTG) 4 goal met pt is able to complete 10 times with minimal discomfort from 18 inches chair LTG Duration 8 weeks pain Impairment 3/10 pain Short Term Goal (STG) 4/9 pt is able to complete bilateral LE strengthening ex in Crossfit without discomfort but painful during SL exercises. Longterm Goal (LTG) 5/3 pt cont in progress, no knee pain during classess but R hip persists. pt will not have R LE pain during her crossfit training and long runs LTG Duration 8 weeks LEFS Impairment pt scores 63 on LEFS Longterm Goal (LTG) pt will score >70 on LEFS to improve her quality of life including being able to tolerate prolonged sitting > 1hours, sleeping on her R side and lift. LTG Duration 8 weeks single leg stability Impairment star test Short Term Goal (STG) 4 same on RLE fwd= 26, lateral= 27 on LLE fwd= 23, lateral= 27 Parts Counterman Goal (LTG) pt will improve his single leg stability to be able to reach symmetrical result on star excursion test. LTG Duration 8 weeks Assessment Summary Assessment pt has been progressing well so far. No discomfort noted after her workout and hiking. continue to focus on SL stability, landing techqniues and pylometrics today. Physical Therapy Plan Frequency and Duration Frequency of Treatment 2x/Week Duration of Treatment 8 weeks Plan of Care Start Date 06/12/20 Plan of Care End Date 08/11/20 Therapeutic Interventions Therapeutic Interventions Balance Training,Gait Training ,Home Exercise Program,Joint Mobilizations,Manual Therapy, Neuromuscular Re-education, Patient/Caregiver Education, Self-Care/Home Management,Soft Tissue Mobilization,Taping, Therapeutic Activities, Therapeutic Exercises Modalities Cold Pack/Ice Massage,Electric Stimulation,Hot Packs, Infrared Therapy,Ultrasound Next Visit Focus/Plan Next Note Type Treatment Note Next Visit Plan check tolerance SL stability R hip strengthening
--- NOTE | 2020-07-07 14:32 | PT.OTN ---
Current Diagnoses Other chronic pain (07/07/20) Pain in right knee (07/07/20) Physical Therapy Treatment Note PT-OP-A Visit Information Start: 03/09/20 12:58 Freq: Status: Active Protocol: Document 07/07/20 13:50 HH (Rec: 07/07/20 14:32 [email or web address]) Out-Patient Physical Therapy Visit Information Visit Information Visit Type Treatment Note Visit Start Time 13:48 Visit Stop Time 14:30 Total Visit Minutes 42 Visit Number 15/60 Number of FILLER ROOM ATTENDANT Visits 0 PT-OP-B Current Condition Start: 03/09/20 12:58 Freq: Status: Active Protocol: Document 03/09/20 14:26 HH (Rec: 03/09/20 15:16 HH [email or web address]) Current Condition History of Current Condition Onset Date many years ago Current Complaints R knee and R hip pain History of Current Condition Pt is an active 39yo female here for chronic R knee pain and new onset of R hip pain. Pt stated she fell a few months ago and landed on lateral side of her R hip. She stated that her whole lateral side has been hurting (pain3/ 10) since, along with tingling and numbness sensation to lateral aspect of RLE. She has been compensating by shifting her weight over to her L side for lots of activities such as running, standing and carrying kids as she stated. Also, pt stated she has L knee discomfort since 10 years ago after she hyperextended her knee while climbing stairs. She had MRI before with negative findings. She has pain 3/10 at her R knee cap region and she c/o being inactive tends to make her whole R leg stiff. Pt does crossfit 3-5 times/ week and run approx 13 miles during the weekend. Her goal is to be able to run 50 miles / month. Prior Treatments and Tests MRI from last year= negative findings Treatment Goals Patient/Caregiver Goals 1. to be able to ex and perform daily activities witohut RLE discomfort 2. to be able to run 50 miles a month Personal Factors Other Personal Factors That May Effect N/A Therapy/Recovery PT-OP-C Subjective Start: 03/09/20 12:58 Freq: Status: Active Protocol: Document 07/07/20 13:50 HH (Rec: 07/07/20 14:32 HH [email or web address]) OP-PT Subjective Patient Comments Patient Comments Marita been doing good so far. I did my workout. Patient Reported Progress Improving PT-OP-D Balance Start: 03/09/20 12:58 Freq: Status: Active Protocol: Document 03/09/20 14:26 (Rec: 03/09/20 15:16 [email or web address]) Balance Tests Single Limb Standing Single Limb- Right >60 Single Limb- Left >60 Other Other Balance Tests Performed excessive R weight shift noted standing on RLE, normal = LLE PT-OP-E Functional Tests Start: 03/09/20 12:58 Freq: Status: Active Protocol: Document 03/09/20 14:26 (Rec: 03/09/20 15:16 [email or web address]) Functional Tests Star Excursion Balance Test Score on RLE fwd= 26, lateral= 27 on LLE fwd= 23, lateral= 27 Single Leg Squat Test Comment R =21 , L=18 PT-OP-F Manual Assessment Start: 03/09/20 12:58 Freq: Status: Active Protocol: Document 03/09/20 14:26 (Rec: 03/09/20 15:16 [email or web address]) Manual Assessments Soft Tissue Assessment Soft Tissue Mobility Assessment significant tenderness to pressure at R QL, paraspinals, R lateral quad, IT band and patella tendon PT-OP-J Posture/Palpation/Skin Start: 03/09/20 12:58 Freq: Status: Active Protocol: Document 06/12/20 16:27 (Rec: 06/12/20 16:29 [id number]) Palpation Assessment Location LLD Palpation Details RLE = 96.5 cm (belly button to medial malleolus) LLE = 95 cm PT-OP-K Range of Motion Start: 03/09/20 12:58 Freq: Status: Active Protocol: Document 03/09/20 14:26 (Rec: 03/09/20 15:16 [email or web address]) Hip Goniometric Range of Motion Hip Left Active Internal Rotation 45 External Rotation 50 Right Active Hip ROM WFL Yes Testing Position Supine Internal Rotation 45 External Rotation 50 Knee Goniometric Range of Motion Knee Right Knee ROM WFL Yes Patient Position Supine Flexion Active (degrees) 142 Comments tightness and discomfort at end range Left Knee ROM WFL Yes Patient Position Supine Flexion Active (degrees) 155 Ankle and Foot Goniometric Range of Motion Ankle and Foot ROM Limitations Comments knee to wall test in lunges position R= 4 away from wall L= 5 away from wall PT-OP-L Special Tests Start: 03/09/20 12:58 Freq: Status: Active Protocol: Document 03/09/20 14:26 (Rec: 03/09/20 15:16 [email or web address]) Special Tests Knee Special Tests Donavan Test Results +Ve R Comments pain at distal quad and patella tendon PT-OP-M Strength Start: 03/09/20 12:58 Freq: Status: Active Protocol: Document 03/09/20 14:26 (Rec: 03/09/20 15:16 [email or web address]) Hip Strength Hip Manual Muscle Testing Right Flexion (L2) 4- Good- Extension (S1) 4- Good- Abduction 4- Good- Adduction 4- Good- Left Flexion (L2) 4 Good Extension (S1) 4 Good Abduction 4 Good Adduction 4 Good Knee Strength Knee Manual Muscle Testing Right Flexion (S2) 4- Good- Extension (L3) 4+ Good+ Left Flexion (S2) 4+ Good+ Extension (L3) 4+ Good+ Ankle/Foot Strength Ankle and Foot Manual Muscle Testing Right Dorsiflexion (L4) 5 Normal Plantarflexion (S1) 5 Normal Left Dorsiflexion (L4) 5 Normal Plantarflexion (S1) 5 Normal PT-OP-Q Treatments Start: 03/09/20 12:58 Freq: Status: Active Protocol: Document 07/07/20 13:50 HH (Rec: 07/07/20 14:32 [id number]) Cardio Equipment Bicycle (Upright) Duration (Minutes) 6 Resistance 8 Therapeutic Exercises Supine Exercises nerve glide Supine Exercise Name sciatic Side right Reps/Minutes 10 x1 Comments no pain noted bridging Equipment Used on red therapy ball Reps/Minutes 10 x 2 piriformis stretch Side bilateral Reps/Minutes 15secs hold x 4 Standing Exercises SL jump 2 Standing Exercise Name in place with UE support on bar Reps/Minutes 15 x2 Comments no discomfort jump Standing Exercise Name 8 inch box, SL landing Side bilateral Reps/Minutes 8 x2 hopping Standing Exercise Name forward hop, lateral hop on blue foam Reps/Minutes 10 x 4 Comments cues on knee alignment single leg jump Standing Exercise Name on blue foam Reps/Minutes 10 x3 Comments without off the floor SL squat Equipment Used 22 inch box Reps/Minutes [address] Standing Exercise Name forward and lateral Side bilateral Reps/Minutes 10 x2 lunges Standing Exercise Name slider, back leg slide backward Side bilateral Reps/Minutes 8 x2 Manual Therapy Treatment Soft Tissue Mobilization QL Body Location bilateral Mobilization Type Sustained Pressure,Trigger Point Release Intensity/Depth Deep Body Position Sidelying Comments min discomfort. R glute Mobilization Type Sustained Pressure,Trigger Point Release Intensity/Depth Moderate Body Position Sidelying Comments reduced tenderness noted. PT-OP-T Assessment and Plan Start: 03/09/20 12:58 Freq: Status: Active Protocol: Document 07/07/20 13:50 HH (Rec: 07/07/20 14:32 HH [id number]) Physical Therapy Assessment Goals strength Impairment single leg squat on R= 21 inches, L = 18 inches Short Term Goal (STG) pt will increase her R LE stability and strength to be able to complete 5 times with minimal discomfort from 19 inches chair STG Duration 4 weeks Longterm Goal (LTG) 4 goal met pt is able to complete 10 times with minimal discomfort from 18 inches chair LTG Duration 8 weeks pain Impairment 3/10 pain Short Term Goal (STG) 4/9 pt is able to complete bilateral LE strengthening ex in Crossfit without discomfort but painful during SL exercises. Per Diem Clerk Goal (LTG) 5/3 pt cont in progress, no knee pain during classess but R hip persists. pt will not have R LE pain during her crossfit training and long runs LTG Duration 8 weeks LEFS Impairment pt scores 63 on LEFS Per Diem Clerk Goal (LTG) pt will score >70 on LEFS to improve her quality of life including being able to tolerate prolonged sitting > 1hours, sleeping on her R side and lift. LTG Duration 8 weeks single leg stability Impairment star test Short Term Goal (STG) 4 same on RLE fwd= 26, lateral= 27 on LLE fwd= 23, lateral= 27 Longterm Goal (LTG) pt will improve his single leg stability to be able to reach symmetrical result on star excursion test. LTG Duration 8 weeks Assessment Summary Assessment Pt continues to improve with no/minimal discomfort for the past 2 weeks. Continue to progress to pylometric training with SL jumping activities. Physical Therapy Plan Frequency and Duration Frequency of Treatment 2x/Week Duration of Treatment 8 weeks Plan of Care Start Date 06/12/20 Plan of Care End Date 08/11/20 Therapeutic Interventions Therapeutic Interventions Balance Training,Gait Training ,Home Exercise Program,Joint Mobilizations,Manual Therapy, Neuromuscular Re-education, Patient/Caregiver Education, Self-Care/Home Management,Soft Tissue Mobilization,Taping, Therapeutic Activities, Therapeutic Exercises Modalities Cold Pack/Ice Massage,Electric Stimulation,Hot Packs, Infrared Therapy,Ultrasound Next Visit Focus/Plan Next Note Type Treatment Note Next Visit Plan check tolerance SL stability R hip strengthening
--- NOTE | 2020-07-19 15:36 | PT.OTN ---
Current Diagnoses Other chronic pain (07/19/20) Pain in right knee (07/19/20) Physical Therapy Treatment Note PT-OP-A Visit Information Start: 03/09/20 12:58 Freq: Status: Active Protocol: Document 07/19/20 13:01 (Rec: 07/19/20 15:36 [id number]) Out-Patient Physical Therapy Visit Information Visit Information Visit Type Treatment Note Visit Start Time 13:03 Visit Stop Time 13:45 Total Visit Minutes 43 Visit Number 16/60 Number of STATION MECHANIC HELPER Visits 0 PT-OP-B Current Condition Start: 03/09/20 12:58 Freq: Status: Active Protocol: Document 03/09/20 14:26 HH (Rec: 03/09/20 15:16 [email or web address]) Current Condition History of Current Condition Onset Date many years ago Current Complaints R knee and R hip pain History of Current Condition Pt is an active 39yo female here for chronic R knee pain and new onset of R hip pain. Pt stated she fell a few months ago and landed on lateral side of her R hip. She stated that her whole lateral side has been hurting (pain3/ 10) since, along with tingling and numbness sensation to lateral aspect of RLE. She has been compensating by shifting her weight over to her L side for lots of activities such as running, standing and carrying kids as she stated. Also, pt stated she has L knee discomfort since 10 years ago after she hyperextended her knee while climbing stairs. She had MRI before with negative findings. She has pain 3/10 at her R knee cap region and she c/o being inactive tends to make her whole R leg stiff. Pt does crossfit 3-5 times/ week and run approx 13 miles during the weekend. Her goal is to be able to run 50 miles / month. Prior Treatments and Tests MRI from last year= negative findings Treatment Goals Patient/Caregiver Goals 1. to be able to ex and perform daily activities witohut RLE discomfort 2. to be able to run 50 miles a month Personal Factors Other Personal Factors That May Effect N/A Therapy/Recovery PT-OP-C Subjective Start: 03/09/20 12:58 Freq: Status: Active Protocol: Document 07/19/20 13:01 (Rec: 07/19/20 15:36 [id number]) OP-PT Subjective Patient Comments Patient Comments Its been good overall until i did my friday workout with lots of strict press which kind of aggravate my back a little bit.I also did s josemanuel last week and it went well. Patient Reported Progress Improving PT-OP-D Balance Start: 03/09/20 12:58 Freq: Status: Active Protocol: Document 03/09/20 14:26 (Rec: 03/09/20 15:16 [email or web address]) Balance Tests Single Limb Standing Single Limb- Right >60 Single Limb- Left >60 Other Other Balance Tests Performed excessive R weight shift noted standing on RLE, normal = LLE PT-OP-E Functional Tests Start: 03/09/20 12:58 Freq: Status: Active Protocol: Document 03/09/20 14:26 (Rec: 03/09/20 15:16 [email or web address]) Functional Tests Star Excursion Balance Test Score on RLE fwd= 26, lateral= 27 on LLE fwd= 23, lateral= 27 Single Leg Squat Test Comment R =21 , L=18 PT-OP-F Manual Assessment Start: 03/09/20 12:58 Freq: Status: Active Protocol: Document 03/09/20 14:26 (Rec: 03/09/20 15:16 [email or web address]) Manual Assessments Soft Tissue Assessment Soft Tissue Mobility Assessment significant tenderness to pressure at R QL, paraspinals, R lateral quad, IT band and patella tendon PT-OP-J Posture/Palpation/Skin Start: 03/09/20 12:58 Freq: Status: Active Protocol: Document 06/12/20 16:27 (Rec: 06/12/20 16:29 [id number]) Palpation Assessment Location LLD Palpation Details RLE = 96.5 cm (belly button to medial malleolus) LLE = 95 cm PT-OP-K Range of Motion Start: 03/09/20 12:58 Freq: Status: Active Protocol: Document 03/09/20 14:26 (Rec: 03/09/20 15:16 [email or web address]) Hip Goniometric Range of Motion Hip Left Active Internal Rotation 45 External Rotation 50 Right Active Hip ROM WFL Yes Testing Position Supine Internal Rotation 45 External Rotation 50 Knee Goniometric Range of Motion Knee Right Knee ROM WFL Yes Patient Position Supine Flexion Active (degrees) 142 Comments tightness and discomfort at end range Left Knee ROM WFL Yes Patient Position Supine Flexion Active (degrees) 155 Ankle and Foot Goniometric Range of Motion Ankle and Foot ROM Limitations Comments knee to wall test in lunges position R= 4 away from wall L= 5 away from wall PT-OP-L Special Tests Start: 03/09/20 12:58 Freq: Status: Active Protocol: Document 03/09/20 14:26 (Rec: 03/09/20 15:16 [email or web address]) Special Tests Knee Special Tests Donavan Test Results +Ve R Comments pain at distal quad and patella tendon PT-OP-M Strength Start: 03/09/20 12:58 Freq: Status: Active Protocol: Document 03/09/20 14:26 (Rec: 03/09/20 15:16 [email or web address]) Hip Strength Hip Manual Muscle Testing Right Flexion (L2) 4- Good- Extension (S1) 4- Good- Abduction 4- Good- Adduction 4- Good- Left Flexion (L2) 4 Good Extension (S1) 4 Good Abduction 4 Good Adduction 4 Good Knee Strength Knee Manual Muscle Testing Right Flexion (S2) 4- Good- Extension (L3) 4+ Good+ Left Flexion (S2) 4+ Good+ Extension (L3) 4+ Good+ Ankle/Foot Strength Ankle and Foot Manual Muscle Testing Right Dorsiflexion (L4) 5 Normal Plantarflexion (S1) 5 Normal Left Dorsiflexion (L4) 5 Normal Plantarflexion (S1) 5 Normal PT-OP-Q Treatments Start: 03/09/20 12:58 Freq: Status: Active Protocol: Document 07/19/20 13:01 (Rec: 07/19/20 15:36 [id number]) Cardio Equipment Elliptical Duration (Minutes) 6 Resistance 5 Therapeutic Exercises Standing Exercises PPT Standing Exercise Name with shoulder press Side bilateral Reps/Minutes 10 mins Comments cues on PPT SL jump 2 Standing Exercise Name in place with UE support on bar Reps/Minutes 15 x2 Comments no discomfort jump Standing Exercise Name 8 inch box, SL landing Side bilateral Reps/Minutes 8 x2 hopping Standing Exercise Name forward hop, lateral hop on blue foam Reps/Minutes 10 x 4 Comments cues on knee alignment single leg jump Standing Exercise Name on blue foam Reps/Minutes 10 x3 Comments without off the floor PT-OP-T Assessment and Plan Start: 03/09/20 12:58 Freq: Status: Active Protocol: Document 07/19/20 13:01 (Rec: 07/19/20 15:36 [id number]) Physical Therapy Assessment Goals strength Impairment single leg squat on R= 21 inches, L = 18 inches Short Term Goal (STG) pt will increase her R LE stability and strength to be able to complete 5 times with minimal discomfort from 19 inches chair STG Duration 4 weeks Center Mgr Goal (LTG) 05/19 goal met pt is able to complete 10 times with minimal discomfort from 18 inches chair LTG Duration 8 weeks pain Impairment 3/10 pain Short Term Goal (STG) 4 pt is able to complete bilateral LE strengthening ex in Crossfit without discomfort but painful during SL exercises. Center Mgr Goal (LTG) 5/ pt cont in progress, no knee pain during classess but R hip persists. pt will not have R LE pain during her crossfit training and long runs LTG Duration 8 weeks LEFS Impairment pt scores 63 on LEFS Center Mgr Goal (LTG) pt will score >70 on LEFS to improve her quality of life including being able to tolerate prolonged sitting > 1hours, sleeping on her R side and lift. LTG Duration 8 weeks single leg stability Impairment star test Short Term Goal (STG) 05/19 same on RLE fwd= 26, lateral= 27 on LLE fwd= 23, lateral= 27 Center Mgr Goal (LTG) pt will improve his single leg stability to be able to reach symmetrical result on star excursion test. LTG Duration 8 weeks Assessment Summary Assessment pt has been doing well so far except she felt some back pain after doing push press during crossfit class. Spent time correcting her techqniue by engaging posterior pelvic tilt. no LBP noted afterwards. Physical Therapy Plan Frequency and Duration Frequency of Treatment 2x/Week Duration of Treatment 8 weeks Plan of Care Start Date 06/12/20 Plan of Care End Date 08/11/20 Therapeutic Interventions Therapeutic Interventions Balance Training,Gait Training ,Home Exercise Program,Joint Mobilizations,Manual Therapy, Neuromuscular Re-education, Patient/Caregiver Education, Self-Care/Home Management,Soft Tissue Mobilization,Taping, Therapeutic Activities, Therapeutic Exercises Modalities Cold Pack/Ice Massage,Electric Stimulation,Hot Packs, Infrared Therapy,Ultrasound Next Visit Focus/Plan Next Note Type Treatment Note Next Visit Plan check tolerance SL stability R hip strengthening
--- NOTE | 2020-07-26 14:35 | PT.OTN ---
Current Diagnoses Other chronic pain (07/26/20) Pain in right knee (07/26/20) Physical Therapy Treatment Note PT-OP-A Visit Information Start: 03/09/20 12:58 Freq: Status: Active Protocol: Document 07/26/20 13:47 HH (Rec: 07/26/20 14:35 [id number]) Out-Patient Physical Therapy Visit Information Visit Information Visit Type Treatment Note Visit Start Time 13:45 Visit Stop Time 14:30 Total Visit Minutes 45 Visit Number 17/60 Number of TALENT DEVELOPMENT DIRECTOR Visits 0 PT-OP-B Current Condition Start: 03/09/20 12:58 Freq: Status: Active Protocol: Document 03/09/20 14:26 HH (Rec: 03/09/20 15:16 HH [email or web address]) Current Condition History of Current Condition Onset Date many years ago Current Complaints R knee and R hip pain History of Current Condition Pt is an active 39yo female here for chronic R knee pain and new onset of R hip pain. Pt stated she fell a few months ago and landed on lateral side of her R hip. She stated that her whole lateral side has been hurting (pain3/ 10) since, along with tingling and numbness sensation to lateral aspect of RLE. She has been compensating by shifting her weight over to her L side for lots of activities such as running, standing and carrying kids as she stated. Also, pt stated she has L knee discomfort since 10 years ago after she hyperextended her knee while climbing stairs. She had MRI before with negative findings. She has pain 3/10 at her R knee cap region and she c/o being inactive tends to make her whole R leg stiff. Pt does crossfit 3-5 times/ week and run approx 13 miles during the weekend. Her goal is to be able to run 50 miles / month. Prior Treatments and Tests MRI from last year= negative findings Treatment Goals Patient/Caregiver Goals 1. to be able to ex and perform daily activities witohut RLE discomfort 2. to be able to run 50 miles a month Personal Factors Other Personal Factors That May Effect N/A Therapy/Recovery PT-OP-C Subjective Start: 03/09/20 12:58 Freq: Status: Active Protocol: Document 07/26/20 13:47 HH (Rec: 07/26/20 14:35 [id number]) OP-PT Subjective Patient Comments Patient Comments Its been doing good but my both side of the back is sore after doing lots of push press and thrusters. PT-OP-D Balance Start: 03/09/20 12:58 Freq: Status: Active Protocol: Document 03/09/20 14:26 (Rec: 03/09/20 15:16 [email or web address]) Balance Tests Single Limb Standing Single Limb- Right >60 Single Limb- Left >60 Other Other Balance Tests Performed excessive R weight shift noted standing on RLE, normal = LLE PT-OP-E Functional Tests Start: 03/09/20 12:58 Freq: Status: Active Protocol: Document 03/09/20 14:26 (Rec: 03/09/20 15:16 [email or web address]) Functional Tests Star Excursion Balance Test Score on RLE fwd= 26, lateral= 27 on LLE fwd= 23, lateral= 27 Single Leg Squat Test Comment R =21 , L=18 PT-OP-F Manual Assessment Start: 03/09/20 12:58 Freq: Status: Active Protocol: Document 03/09/20 14:26 (Rec: 03/09/20 15:16 [email or web address]) Manual Assessments Soft Tissue Assessment Soft Tissue Mobility Assessment significant tenderness to pressure at R QL, paraspinals, R lateral quad, IT band and patella tendon PT-OP-J Posture/Palpation/Skin Start: 03/09/20 12:58 Freq: Status: Active Protocol: Document 06/12/20 16:27 (Rec: 06/12/20 16:29 [id number]) Palpation Assessment Location LLD Palpation Details RLE = 96.5 cm (belly button to medial malleolus) LLE = 95 cm PT-OP-K Range of Motion Start: 03/09/20 12:58 Freq: Status: Active Protocol: Document 03/09/20 14:26 HH (Rec: 03/09/20 15:16 [email or web address]) Hip Goniometric Range of Motion Hip Left Active Internal Rotation 45 External Rotation 50 Right Active Hip ROM WFL Yes Testing Position Supine Internal Rotation 45 External Rotation 50 Knee Goniometric Range of Motion Knee Right Knee ROM WFL Yes Patient Position Supine Flexion Active (degrees) 142 Comments tightness and discomfort at end range Left Knee ROM WFL Yes Patient Position Supine Flexion Active (degrees) 155 Ankle and Foot Goniometric Range of Motion Ankle and Foot ROM Limitations Comments knee to wall test in lunges position R= 4 away from wall L= 5 away from wall PT-OP-L Special Tests Start: 03/09/20 12:58 Freq: Status: Active Protocol: Document 03/09/20 14:26 (Rec: 03/09/20 15:16 [email or web address]) Special Tests Knee Special Tests Donavan Test Results +Ve R Comments pain at distal quad and patella tendon PT-OP-M Strength Start: 03/09/20 12:58 Freq: Status: Active Protocol: Document 03/09/20 14:26 (Rec: 03/09/20 15:16 [email or web address]) Hip Strength Hip Manual Muscle Testing Right Flexion (L2) 4- Good- Extension (S1) 4- Good- Abduction 4- Good- Adduction 4- Good- Left Flexion (L2) 4 Good Extension (S1) 4 Good Abduction 4 Good Adduction 4 Good Knee Strength Knee Manual Muscle Testing Right Flexion (S2) 4- Good- Extension (L3) 4+ Good+ Left Flexion (S2) 4+ Good+ Extension (L3) 4+ Good+ Ankle/Foot Strength Ankle and Foot Manual Muscle Testing Right Dorsiflexion (L4) 5 Normal Plantarflexion (S1) 5 Normal Left Dorsiflexion (L4) 5 Normal Plantarflexion (S1) 5 Normal PT-OP-Q Treatments Start: 03/09/20 12:58 Freq: Status: Active Protocol: Document 07/26/20 13:47 (Rec: 07/26/20 14:35 [id number]) Cardio Equipment Bicycle (Upright) Duration (Minutes) 6 Resistance 8 Therapeutic Exercises Supine Exercises L leg lift Reps/Minutes 8x 5 Comments cues on PPT crunch hold Reps/Minutes 15s x 5 times Sitting Exercises shoulder press Side bilateral Equipment Used pvc with level 1 band Reps/Minutes 10 x2 Comments cues on PPT Standing Exercises standing push press Side bilateral Equipment Used PVC with level 1 band Reps/Minutes 10 x2 SL jump 2 Standing Exercise Name in place with UE support on bar Reps/Minutes 15 x2 Comments no discomfort jump Standing Exercise Name 8 inch box, SL landing Side bilateral Reps/Minutes 8 x2 hopping Standing Exercise Name forward hop, lateral hop on blue foam Reps/Minutes 10 x 4 Comments cues on knee alignment single leg jump Standing Exercise Name on blue foam Reps/Minutes 10 x3 Comments without off the floor SL squat Equipment Used 22 inch box Reps/Minutes 10 x2 Manual Therapy Treatment Soft Tissue Mobilization QL Body Location bilateral Mobilization Type Myofascial Release,Sustained Pressure,Trigger Point Release Intensity/Depth Moderate Body Position Prone Comments significant hypertonciity noted. PT-OP-T Assessment and Plan Start: 03/09/20 12:58 Freq: Status: Active Protocol: Document 07/26/20 13:47 HH (Rec: 07/26/20 14:35 HH [id number]) Physical Therapy Assessment Goals strength Impairment single leg squat on R= 21 inches, L = 18 inches Short Term Goal (STG) pt will increase her R LE stability and strength to be able to complete 5 times with minimal discomfort from 19 inches chair STG Duration 4 weeks Neuro Urologist Goal (LTG) 05/19 goal met pt is able to complete 10 times with minimal discomfort from 18 inches chair LTG Duration 8 weeks pain Impairment 3/10 pain Short Term Goal (STG) 4 pt is able to complete bilateral LE strengthening ex in Crossfit without discomfort but painful during SL exercises. Assisted Goal (LTG) 5/3 pt cont in progress, no knee pain during classess but R hip persists. pt will not have R LE pain during her crossfit training and long runs LTG Duration 8 weeks LEFS Impairment pt scores 63 on LEFS Neuro Urologist Goal (LTG) pt will score >70 on LEFS to improve her quality of life including being able to tolerate prolonged sitting > 1hours, sleeping on her R side and lift. LTG Duration 8 weeks single leg stability Impairment star test Short Term Goal (STG) 4 same on RLE fwd= 26, lateral= 27 on LLE fwd= 23, lateral= 27 Assisted Goal (LTG) pt will improve his single leg stability to be able to reach symmetrical result on star excursion test. LTG Duration 8 weeks Assessment Summary Assessment significant toncity noted at bilateral lumbar paraspinals today. Spent time educating on PPT and neutral spine with push press and shoulder press movements. Her SL stability and strength are continously improving Physical Therapy Plan Frequency and Duration Frequency of Treatment 2x/Week Duration of Treatment 8 weeks Plan of Care Start Date 06/12/20 Plan of Care End Date 08/11/20 Therapeutic Interventions Therapeutic Interventions Balance Training,Gait Training ,Home Exercise Program,Joint Mobilizations,Manual Therapy, Neuromuscular Re-education, Patient/Caregiver Education, Self-Care/Home Management,Soft Tissue Mobilization,Taping, Therapeutic Activities, Therapeutic Exercises Modalities Cold Pack/Ice Massage,Electric Stimulation,Hot Packs, Infrared Therapy,Ultrasound Next Visit Focus/Plan Next Note Type Treatment Note Next Visit Plan check tolerance SL stability R hip strengthening
--- NOTE | 2020-10-05 12:54 | PT.OPDS ---
Current Diagnoses Other chronic pain (07/26/20) Pain in right knee (07/26/20) Visit Care Team Role Provider Type GREG Vega Attending Provider Advanced Flight Attendant Family Provider Primary Care Provider Referring Provider Specialty: Family Practice Address: [address] [place] [id number] Email: [email or web address] Visit Number Visit Number Discharge Summary PT-OP-T Assessment and Plan Start: 03/09/20 12:58 Freq: Status: Active Protocol: Document 10/05/20 12:54 (Rec: 10/05/20 12:54 [email or web address]) Physical Therapy Plan Discharge Physical Therapy Discharge Reasons No Longer Attending PT Discharge Comments pt is no longer attending PT. DC from PT today.
== END 2020-10-05 14:57 | disposition home or self-care (01) ==
LOC: PHYS 13:45
PROVIDERS: Family Provider Nurse Practitioner Family; PCP Nurse Practitioner Family; Referring Provider Nurse Practitioner Family; Visit Provider Nurse Practitioner Family
DX: M25.561 Pain in right knee (principal); G89.29 Other chronic pain
CPT/HCPCS: 97110; 97140; 97161; 97760

== ENCOUNTER → 2020-11-18 08:44 | Outpatient (CLI) | payer OTHER, SELFPAY ==
[2020-11-18 10:02] LABS: Hematocrit 37.7 % (36-46); Hemoglobin 12.4 g/dL (12.0-16.0); Mean Corpuscular HGB Conc 32.8 % (30-36); Mean Corpuscular Hemoglobin 28.2 PG (26-34); Mean Corpuscular Volume 85.9 fL (80-100); Platelet Count 345 X10^3/uL (150-400); Red Blood Cell Count 4.39 X10^6/uL (4.0-5.2); Red Cell Distribution Width 17.1 % (11.6-14.8)
[2020-11-18 10:49] LABS: Alanine Aminotransferase 16 IU/L (<35); Albumin 4.7 g/dL (3.5-5.0); Albumin Globulin Ratio 1.6 (1.0-2.8); Alkaline Phosphatase 65 U/L (38-126); Aspartate Aminotransferase 27 IU/L (14-36); BUN Creatinine Ratio 14.1 (6-22); Bilirubin Total 0.4 mg/dL (0.2-1.3); Blood Urea Nitrogen 10 mg/dL (7-17); Calcium 9.7 mg/dL (8.4-10.2); Carbon Dioxide 30 mmol/L (22-32); Chloride 102 mmol/L (98-107); Cholesterol 167 mg/dL (140-199); Estimated Glomerular Filt Rate > 60.0 mL/min (>60); Globulin 2.9 g/dL (1.7-4.1); Glucose 90 mg/dL (70-100); HDL Cholesterol 85 mg/dL (40-60); HEMOLYSIS < 15 (0-50); LDL Cholesterol Calculated 73 mg/dL (<100); Potassium 4.4 mmol/L (3.4-5.1); Sodium 138 mmol/L (137-145); Total Protein 7.6 g/dL (6.3-8.2); Triglycerides 46 mg/dL (35-150)
== END ==
PROVIDERS: Family Provider Nurse Practitioner Family; PCP Nurse Practitioner Family; Referring Provider Nurse Practitioner Family; Visit Provider Nurse Practitioner Family
DX: Z00.00 Encounter for general adult medical examination without abnormal findings (principal); Z13.6 Encounter for screening for cardiovascular disorders
CPT/HCPCS: 36415; 80053; 80061; 85027

== ENCOUNTER → 2021-05-23 07:17 | Outpatient (CLI) | payer OTHER, SELFPAY | PROVIDERS: Family Provider Nurse Practitioner Family; PCP Nurse Practitioner Family; Referring Provider Obstetrics & Gynecology; Visit Provider Obstetrics & Gynecology | DX: Z31.49 Encounter for other procreative investigation and testing (principal) | CPT/HCPCS: 36415; 84144 ==

== ENCOUNTER → 2021-06-04 07:09 | Outpatient (CLI) | payer OTHER, SELFPAY ==
[2021-06-04 08:46] LABS: HCG Quantitative /Beta subunit < 2.4 mIU/mL
== END ==
PROVIDERS: Family Provider Nurse Practitioner Family; PCP Nurse Practitioner Family; Referring Provider Obstetrics & Gynecology; Visit Provider Obstetrics & Gynecology
DX: Z32.00 Encounter for pregnancy test, result unknown (principal)
CPT/HCPCS: 36415; 84702

== ENCOUNTER → 2021-06-27 07:27 | Outpatient (CLI) | payer OTHER, SELFPAY | PROVIDERS: Family Provider Nurse Practitioner Family; PCP Nurse Practitioner Family; Referring Provider Obstetrics & Gynecology; Visit Provider Obstetrics & Gynecology | DX: Z31.49 Encounter for other procreative investigation and testing (principal) | CPT/HCPCS: 36415; 84144 ==

== ENCOUNTER → 2021-07-10 07:28 | Outpatient (CLI) | payer OTHER, SELFPAY | PROVIDERS: Family Provider Nurse Practitioner Family; PCP Nurse Practitioner Family; Referring Provider Obstetrics & Gynecology; Visit Provider Obstetrics & Gynecology | DX: Z32.00 Encounter for pregnancy test, result unknown (principal) | CPT/HCPCS: 36415; 84702 ==

== ENCOUNTER → 2021-07-12 07:40 | Outpatient (CLI) | payer OTHER, SELFPAY ==
[2021-07-12 08:32] LABS: HCG Quantitative /Beta subunit 19.9 mIU/mL
== END ==
PROVIDERS: Family Provider Nurse Practitioner Family; PCP Nurse Practitioner Family; Referring Provider Obstetrics & Gynecology; Visit Provider Obstetrics & Gynecology
DX: Z32.00 Encounter for pregnancy test, result unknown (principal)
CPT/HCPCS: 36415; 84702

== ENCOUNTER → 2021-07-19 07:18 | Outpatient (CLI) | payer OTHER, SELFPAY ==
[2021-07-19 08:20] LABS: HCG Quantitative /Beta subunit 762.6 mIU/mL
== END ==
PROVIDERS: Family Provider Nurse Practitioner Family; PCP Nurse Practitioner Family; Referring Provider Obstetrics & Gynecology; Visit Provider Obstetrics & Gynecology
DX: Z32.00 Encounter for pregnancy test, result unknown (principal)
CPT/HCPCS: 36415; 84702

== ENCOUNTER 2021-10-19 16:43 | Emergency (ER) | payer OTHER, SELFPAY ==
[2021-10-19 17:20] VITALS: BP 134/60; PULSE 67; RESP 19; TEMP 37.1; O2SAT 98; BMI 24.0
[2021-10-19 22:03] LABS: Add Manual Diff / Slide Review NO; Basophils Absolute Auto 100 /uL (0-100); Basophils Percent Auto 0.9 % (0-2); Eosinophils Absolute Auto 100 /uL (0-450); Eosinophils Percent Auto 0.9 % (2-4); Lymphocytes Absolute Auto 2400 /uL (1100-4500); Lymphocytes Percent Auto 32.7 % (25-40); Mean Corpuscular HGB Conc 34.3 % (30-36); Mean Corpuscular Hemoglobin 29.5 PG (26-34); Mean Corpuscular Volume 85.9 fL (80-100); Monocytes Absolute Auto 700 /uL (0-900); Monocytes Percent Auto 10.1 % (3-14); Neutrophils Absolute Auto 4000 /uL (1500-7000); Neutrophils Percent Auto 55.4 % (50-75); Platelet Count 330 X10^3/uL (150-400); Red Blood Cell Count 4.07 X10^6/uL (4.0-5.2); Red Cell Distribution Width 14.3 % (11.6-14.8); White Blood Cell Count 7.3 X10^3/uL (4.5-11.0)
--- NOTE | 2021-10-19 22:04 | DI.CT.S_ITS ---
PROCEDURE: CT ABDOMEN PELVIS W CON INDICATIONS: Generalized abdominal pain TECHNIQUE: After the administration of IV contrast, axial sections were acquired from the lung bases to the pubic symphysis. Coronal and sagittal reformats were performed. For radiation dose reduction, the following was used: automated exposure control, adjustment of mA and/or kV according to patient size. COMPARISON: None. FINDINGS: Image quality: Excellent. Lung bases: There is minimal dependent atelectasis. Heart: Heart is normal in size. ABDOMEN: Liver: No mass lesion. Gallbladder: Within normal limits without calcified gallstones. Biliary ducts: No biliary ductal dilatation. Pancreas: Unremarkable. Spleen: Normal in size. Adrenal Glands: No adrenal nodules. Kidneys and Ureters: No hydronephrosis. Stomach and Bowel: There is gastric wall thickening most prominent within the antrum with associated mucosal enhancement and submucosal edema. Small and large bowel loops are normal in caliber and wall thickness. The appendix is normal in appearance. There is colonic diverticulosis without acute diverticulitis. Peritoneum: No abnormal intraperitoneal fluid. No free air. Ventral Wall: No hernia. Abdominal Nodes: No retroperitoneal or mesenteric adenopathy by size criteria. Vessels: Aorta and inferior vena cava are normal in size. PELVIS: Pelvic Organs: Unremarkable. Bladder: Unremarkable. Pelvic Nodes: No enlarged lymph nodes. Miscellaneous: No inguinal hernias are seen. Bones: Visualized osseous structures demonstrate no suspicious focal lesions. IMPRESSION: 1. Gastric wall thickening, also prominent within the antrum where there is mucosal enhancement and submucosal edema. The findings are consistent with a nonspecific gastritis, likely infectious or inflammatory in etiology. Consider correlation with endoscopy. Dictated by: Toni Hoyos M.D. on 10/20/2021 at 0:00 Approved by: Toni Hoyos M.D. on 10/20/2021 at 0:03
--- NOTE | 2021-10-19 22:04 | ED_ITS ---
HPI - General Adult General Chief complaint: Abdominal Pain Stated complaint: ABD pain severe, Nausea, vomiting Time Seen by Provider: 10/19/21 18:00 Source: patient Mode of arrival: Family Vehicle History of Present Illness HPI narrative: Patient is a 41-year-old female who is here for evaluation approximately 1 week of abdominal discomfort and nausea and vomiting and also diarrhea. She states that the nausea and vomiting and diarrhea seemed to get better this morning but she is still having epigastric abdominal discomfort. It does come in waves and when it starts it is very intense. No fevers. Has not tried anything for the symptoms. No recent travel. No recent antibiotics. She recently had in vitro fertilization and sustained a miscarriage afterwards. She is being followed by a fertility specialist. She did have retained products of conception but she states she was started on medication. Did have a follow-up ultrasound and was told that she had passed everything. She is currently having some vaginal bleeding and this is not when she would expect to have her menstrual cycle. Related Data Previous Rx's Medication Instructions Recorded thigh highs compression stockings #1 ea 10/15/19 Allergies Allergy/AdvReac Type Severity Reaction Status Date / Time No Known Allergies Allergy Uncoded 10/19/21 17:20 Review of Systems Constitutional Constitutional: Denies fever(s) Cardiovascular Cardiovascular: Reports system reviewed and no additional complaints, except as documented Respiratory Respiratory: Reports system reviewed and no additional complaints, except as documented Gastrointestinal Gastrointestinal: Reports system reviewed and no additional complaints, except as documented Genitourinary Genitourinary: Reports system reviewed and no additional complaints, except as documented Integumentary/Breasts Skin/Breast: Reports system reviewed and no additional complaints, except as documented Neurologic Neurologic: Reports system reviewed and no additional complaints, except as documented Hematologic/Lymphatic On Anticoagulants: No Patient History Medical History Encounter for wellness examination in adult (12/26/20) Social History Smoking Status: Never smoker second hand exposure: No alcohol intake: never substance use type: does not use Smoking Status: Never smoker alcohol intake frequency: 0-2 drinks per day Substance Use Type: does not use Exam Initial Vital Signs Initial Vital Signs: Vital Signs Temperature 98.7 F 10/19/21 17:20 Pulse Rate 67 10/19/21 17:20 Respiratory Rate 19 10/19/21 17:20 Blood Pressure 134/60 10/19/21 17:20 Pulse Oximetry 98 10/19/21 17:20 Oxygen Delivery Method 10/19/21 17:20 Const General: cooperative and healthy appearing [facility] Head: normal to inspection and normocephalic Resp Effort & Inspection: normal respiratory effort Auscultation: clear to auscultation bilaterally Cardio Rate: regular rate Rhythm: regular rhythm GI Inspection: normal to inspection Palpation: soft and tender ( Epigastric region) Skin General: no rashes or lesions noted Neuro General: patient alert, patient awake, patient oriented x3 and moves all extremities Extrem General: normal to inspection and capillary refill normal Course Orders Ordered: ED Orders 10/19/21 21:45 Complete Blood Count AUTO DIFF Stat Comprehensive Metabolic Panel Stat Lipase Stat 10/19/21 21:48 Urine Microscopic Stat 10/19/21 22:04 CT abdomen pelvis w con Stat Discontinued Medications Al Hydrox/Mg Hydrox/Simethicone 20 ml/ Lidocaine HCl 15 ml 0 ml PO NOW ONE Stop: 10/19/21 22:05 Last Admin: 10/19/21 22:18 Dose: 35 ml Documented By: ANJANA Sodium Chloride (Normal Saline 0.9%) 1,000 mls @ 1,000 mls/hr IV BOLUS ONE Stop: 10/19/21 23:03 Last Infusion: 10/20/21 00:01 Dose: 0 mls/hr Documented By: Admin: 10/19/21 22:19 Dose: 1,000 mls/hr Documented By: ANJANA Ondansetron HCl (Ondansetron 4 Mg Odt Prepack) 1 bottle MISC SEEINSTR ONE Stop: 10/20/21 00:12 Last Admin: 10/20/21 00:25 Dose: 1 bottle Documented By: ANJANA Pantoprazole Sodium (Pantoprazole 40 Mg Vial) 40 mg IV NOW ONE Stop: 10/19/21 22:05 Last Admin: 10/19/21 22:18 Dose: 40 mg Documented By: ANJANA Vital Signs Vital signs: Vital Signs - 8 hr 10/20/21 00:30 Pulse Rate 64 Respiratory Rate 18 Blood Pressure 124/79 Pulse Oximetry 100 Oxygen Delivery Method Room Air Medical Decision Making Lab Data Lab results reviewed: Yes I reviewed the patient's lab results. Result diagrams: 10/19/21 21:45 10/19/21 21:45 Labs: Lab Results 10/19/21 10/19/21 10/19/21 Range/Units 21:45 21:45 21:48 WBC 7.3 (4.5-11.0) X10^3/uL RBC 4.07 (4.0-5.2) X10^6/uL Hgb 12.0 (12.0-16.0) g/dL Hct 35.0 L (36-46) % MCV 85.9 (80-100) fL MCH 29.5 (26-34) PG MCHC 34.3 (30-36) % RDW 14.3 (11.6-14.8) % Plt Count 330 (150-400) X10^3/uL Neut % (Auto) 55.4 (50-75) % Lymph % (Auto) 32.7 (25-40) % [place] % (Auto) 10.1 (3-14) % Eos % (Auto) 0.9 L (2-4) % Baso % (Auto) 0.9 (0-2) % Neut # (Auto) 4000 (4548-1389) /uL Lymph # (Auto) 2400 (7051-3769) /uL [place] # (Auto) 700 (0-900) /uL Eos # (Auto) 100 (0-450) /uL Baso # (Auto) 100 (0-100) /uL Sodium 137 (137-145) mmol/L Potassium 3.8 (3.4-5.1) mmol/L Chloride 102 (98-107) mmol/L Carbon Dioxide 26 (22-32) mmol/L BUN 6 L (7-17) mg/dL Creatinine 0.70 (0.52-1.04) mg/dL Estimated GFR > 60 (>60) mL/min BUN/Creatinine Ratio 8.6 (6-22) Glucose 93 (70-100) mg/dL Calcium 8.9 (8.4-10.2) mg/dL Total Bilirubin 0.5 (0.2-1.3) mg/dL AST 30 (14-36) IU/L ALT 21 (<35) IU/L Alkaline Phosphatase 49 (38-126) U/L Total Protein 7.9 (6.3-8.2) g/dL Albumin 4.3 (3.5-5.0) g/dL Globulin 3.6 (1.7-4.1) g/dL Albumin/Globulin Ratio 1.2 (1.0-2.8) Lipase 41 (23-300) U/L Urine RBC 10-30/hpf H (0-5/HPF) Urine WBC 5-10/hpf H (0-5/HPF) Ur Squamous Epith Cells 5-10 /hpf H (0-5/HPF) Urine Bacteria Occasional (0-1) (None) Ur Culture Indicated? Cult not indicated Point of Care Testing Test Results Negative Urine Dip Bedside Urine Glucose Negative Bedside Urine Bilirubin - Negative Bedside Urine Ketone - Negative Urine Specific [place] 1.030 Bedside Urine Occult Blood +++ Bedside Urine pH 6.0 Bedside Urine Protein +/- 15 Bedside Urine Urobilinogen - Negative Bedside Urine Nitrite - Negative Bedside Urine Leukocytes - Negative Esterase Point of care testing: Point of Care Testing Test Results Negative Urine Dip Bedside Urine Glucose Negative Bedside Urine Bilirubin - Negative Bedside Urine Ketone - Negative Urine Specific [place] 1.030 Bedside Urine Occult Blood +++ Bedside Urine pH 6.0 Bedside Urine Protein +/- 15 Bedside Urine Urobilinogen - Negative Bedside Urine Nitrite - Negative Bedside Urine Leukocytes - Negative Esterase Imaging Data CT scan - abdomen/pelvis: Radiologist's Impression: [place] [address] CT Scan Report Signed Patient: Inna Fuller MR#: [id number] : 1980 Acct:[id number] Age/Sex: 41 / F Date of Service: 10/19/21 Loc: ED Accession Number: [id number] ?? Procedure: CT abdomen pelvis w con Ordering Provider: Herman Holland D.O. PROCEDURE:? CT ABDOMEN PELVIS W CON ? INDICATIONS:? Generalized abdominal pain ? TECHNIQUE:? After the administration of IV contrast, axial sections were acquired from the lung bases to the pubic symphysis.? Coronal and sagittal reformats were performed.? For radiation dose reduction, the following was used:? automated exposure control, adjustment of mA and/or kV according to patient size. ? COMPARISON:? None. ? FINDINGS:? Image quality:? Excellent.? ? Lung bases:? There is minimal dependent atelectasis.? ? Heart:? Heart is normal in size. ? ? ABDOMEN: Liver:? No mass lesion. Gallbladder:? Within normal limits without calcified gallstones.? ? Biliary ducts:? No biliary ductal dilatation.? ? Pancreas:? Unremarkable.? ? Spleen:? Normal in size.? ? Adrenal Glands:? No adrenal nodules.? ? Kidneys and Ureters:? No hydronephrosis.? ? ? Stomach and Bowel:? There is gastric wall thickening most prominent within the antrum with associated mucosal enhancement and submucosal edema.? Small and large bowel loops are normal in caliber and wall thickness.? The appendix is normal in appearance.? There is colonic diverticulosis without acute diverticulitis.? Peritoneum:? No abnormal intraperitoneal fluid.? No free air.? ? Ventral Wall: ? No hernia.? Abdominal Nodes:? No retroperitoneal or mesenteric adenopathy by size criteria.? Vessels:? Aorta and inferior vena cava are normal in size.? ? PELVIS: Pelvic Organs:? Unremarkable.? ? Bladder:? Unremarkable.? ? Pelvic Nodes: No enlarged lymph nodes.? Miscellaneous: No inguinal hernias are seen. ? ? ? Bones:? Visualized osseous structures demonstrate no suspicious focal lesions. ? IMPRESSION:? ? 1. Gastric wall thickening, also prominent within the antrum where there is mucosal enhancement and submucosal edema.? The findings are consistent with a nonspecific gastritis, likely infectious or inflammatory in etiology.? Consider correlation with endoscopy.? ? ? Dictated by: Toni Hoyos M.D. on 10/20/2021 at 0:00 ? ? Approved by: Toni Hoyos M.D. on 10/20/2021 at 0:03 MDM Narrative Medical decision making narrative: patient had improvement of symptoms after the GI cocktail and also the Protonix. CT scan shows gastritis which does correspond to where she is having discomfort and also the symptoms that she presents with. No indication for antibiotics. Indication for surgical consultation. I did discuss the CT scan findings with her. Will send home with nausea medication. Will also have her start taking famotidine. She was given return precautions. She expressed understanding and agreement. Discharge Plan Departure Patient Disposition: Home Clinical Impression: Gastritis Instructions: DI for Gastritis, DI for Abdominal Pain-Adult Activity Restrictions/Additional Instructions: I do recommend the nausea medication as needed. Also recommend that you purchase a medicine called famotidine. You can purchase this [id number]. This is a 1 time a day medicine that can help decrease the amount of acid that is in your stomach. Recommend that you take it for the next week. Also recommend a bland diet. You can advance it as tolerated. Return to the emergency department for any new or worsening symptoms. Prescriptions: No Action (DME) thigh highs compression stockings Qty: 1 0RF Rx Instructions: As directed Referrals: Rikki Nixon ARNP [Primary Care Provider] - Visit Report Forms: Patient Portal/API
[2021-10-19] MEDS: PANTOPRAZOLE 40 MG VIAL IV (22:18)
[2021-10-19] MEDS: MAG HYDROX/ALUMINUM/SIMETH SUS 20 ML, LIDOCAINE VISCOUS 2% 15 ML PO (22:18)
[2021-10-19] MEDS: SODIUM CHLORIDE 0.9% 1,000 ML 1000 ML IV (22:19)
[2021-10-19 22:29] LABS: RBC Urine 10-30/HPF (0-5/HPF)
[2021-10-19 22:30] LABS: Bacteria Urine Occasional (0-1); Culture Indicated Urine Cult Not Indicated; Squamous Epithelial Cell Urine 5-10 /HPF (0-5/HPF); WBC Urine 5-10/HPF (0-5/HPF)
[2021-10-19 22:35] LABS: Alanine Aminotransferase 21 IU/L (<35); Albumin 4.3 g/dL (3.5-5.0); Albumin Globulin Ratio 1.2 (1.0-2.8); Alkaline Phosphatase 49 U/L (38-126); Aspartate Aminotransferase 30 IU/L (14-36); BUN Creatinine Ratio 8.6 (6-22); Bilirubin Total 0.5 mg/dL (0.2-1.3); Blood Urea Nitrogen 6 mg/dL (7-17); Calcium 8.9 mg/dL (8.4-10.2); Carbon Dioxide 26 mmol/L (22-32); Chloride 102 mmol/L (98-107); Estimated Glomerular Filt Rate > 60 mL/min (>60); Globulin 3.6 g/dL (1.7-4.1); Glucose 93 mg/dL (70-100); HEMOLYSIS < 15 (0-50); Lipase 41 U/L (23-300); Potassium 3.8 mmol/L (3.4-5.1); Sodium 137 mmol/L (137-145); Total Protein 7.9 g/dL (6.3-8.2)
[2021-10-20] MEDS: ONDANSETRON 4 MG ODT PREPACK 1 BOTTLE MISC (00:25)
[2021-10-20 00:30] VITALS: BP 124/79; PULSE 64; RESP 18; O2SAT 100
== END 2021-10-20 00:35 | disposition home or self-care (01) ==
PROVIDERS: Emergency Provider Emergency Medicine; Family Provider Nurse Practitioner Family; PCP Nurse Practitioner Family
DX: K29.70 Gastritis, unspecified, without bleeding (principal); R10.84 Generalized abdominal pain; R11.2 Nausea with vomiting, unspecified
CPT/HCPCS: 36415; 74177; 80053; 81003; 81015; 81025; 83690; 85025; 96361; 96374; 99284; C9113; Q9967

== ENCOUNTER → 2021-11-28 13:15 | Outpatient (CLI) | payer OTHER, SELFPAY | PROVIDERS: Family Provider Nurse Practitioner Family; PCP Registered Nurse Diabetes Educator; Referring Provider Obstetrics & Gynecology; Visit Provider Obstetrics & Gynecology | DX: Z31.49 Encounter for other procreative investigation and testing (principal) | CPT/HCPCS: 36415; 84144 ==

== ENCOUNTER → 2021-12-10 07:49 | Outpatient (CLI) | payer OTHER, SELFPAY ==
[2021-12-10 08:36] LABS: Hematocrit 33.2 % (36-46); Hemoglobin 10.8 g/dL (12.0-16.0); Mean Corpuscular HGB Conc 32.6 % (30-36); Mean Corpuscular Hemoglobin 27.4 PG (26-34); Mean Corpuscular Volume 84.1 fL (80-100); Platelet Count 455 X10^3/uL (150-400); Red Blood Cell Count 3.94 X10^6/uL (4.0-5.2); Red Cell Distribution Width 14.8 % (11.6-14.8)
[2021-12-10 08:46] LABS: HCG Quantitative /Beta subunit < 2.4 mIU/mL
[2021-12-10 08:48] LABS: Alanine Aminotransferase 15 IU/L (<35); Albumin 3.7 g/dL (3.5-5.0); Albumin Globulin Ratio 1.2 (1.0-2.8); Alkaline Phosphatase 84 U/L (38-126); Aspartate Aminotransferase 20 IU/L (14-36); BUN Creatinine Ratio 13.6 (6-22); Bilirubin Total 0.1 mg/dL (0.2-1.3); Blood Urea Nitrogen 9 mg/dL (7-17); Calcium 8.7 mg/dL (8.4-10.2); Carbon Dioxide 23 mmol/L (22-32); Chloride 105 mmol/L (98-107); Cholesterol 142 mg/dL (140-199); Estimated Glomerular Filt Rate > 60 mL/min (>60); Globulin 3.1 g/dL (1.7-4.1); Glucose 128 mg/dL (70-100); HDL Cholesterol 61 mg/dL (40-60); HEMOLYSIS < 15 (0-50); LDL Cholesterol Calculated 73 mg/dL (<100); Potassium 4.8 mmol/L (3.4-5.1); Sodium 135 mmol/L (137-145); Total Protein 6.8 g/dL (6.3-8.2); Triglycerides 42 mg/dL (35-150)
== END ==
PROVIDERS: Family Provider Nurse Practitioner Family; PCP Registered Nurse Diabetes Educator; Referring Provider Obstetrics & Gynecology; Visit Provider Obstetrics & Gynecology
DX: Z00.00 Encounter for general adult medical examination without abnormal findings (principal); Z32.00 Encounter for pregnancy test, result unknown; Z13.6 Encounter for screening for cardiovascular disorders
CPT/HCPCS: 36415; 80053; 80061; 84702; 85027

== ENCOUNTER → 2022-01-02 08:34 | Outpatient (CLI) | payer OTHER, SELFPAY | PROVIDERS: Family Provider Nurse Practitioner Family; PCP Registered Nurse Diabetes Educator; Referring Provider Registered Nurse Diabetes Educator; Visit Provider Registered Nurse Diabetes Educator | DX: N63.10 Unspecified lump in the right breast, unspecified quadrant (principal); Z53.8 Procedure and treatment not carried out for other reasons ==

== ENCOUNTER → 2022-08-05 17:18 | Outpatient (CLI) | payer OTHER, SELFPAY ==
[2022-08-05 18:38] LABS: HCG Quantitative /Beta subunit < 2.4 mIU/mL
== END ==
PROVIDERS: Family Provider Nurse Practitioner Family; PCP Registered Nurse Diabetes Educator; Referring Provider Obstetrics & Gynecology; Visit Provider Obstetrics & Gynecology
DX: Z32.00 Encounter for pregnancy test, result unknown (principal)
CPT/HCPCS: 36415; 84702

== ENCOUNTER → 2023-07-05 09:17 | Outpatient (CLI) | payer OTHER, SELFPAY ==
[2023-07-05 10:59] LABS: Add Manual Diff / Slide Review NO; Basophils Absolute Auto 0 /uL (0-100); Basophils Percent Auto 0.7 % (0-2); Eosinophils Absolute Auto 100 /uL (0-450); Eosinophils Percent Auto 1.1 % (2-4); Hematocrit 40.1 % (36-46); Hemoglobin 13.6 g/dL (12.0-16.0); Lymphocytes Absolute Auto 2000 /uL (1100-4500); Lymphocytes Percent Auto 33.8 % (25-40); Mean Corpuscular HGB Conc 33.8 % (30-36); Mean Corpuscular Hemoglobin 30.8 PG (26-34); Monocytes Absolute Auto 500 /uL (0-900); Monocytes Percent Auto 9.2 % (3-14); Neutrophils Absolute Auto 3300 /uL (1500-7000); Neutrophils Percent Auto 55.2 % (50-75); Platelet Count 338 X10^3/uL (150-400); Red Blood Cell Count 4.41 X10^6/uL (4.0-5.2); Red Cell Distribution Width 13.6 % (11.6-14.8); White Blood Cell Count 5.9 X10^3/uL (4.5-11.0)
[2023-07-05 11:07] LABS: HEMOLYSIS < 15 (0-50); Hemoglobin A1C% w Est Avg Glu 5.4 % (4.0-6.0); Iron 174 ug/dL (37-170)
[2023-07-05 11:08] LABS: Glucose 93 mg/dL (70-100)
[2023-07-05 11:18] LABS: Percent Iron Saturation 51 % (15-50); Total Iron Binding Capacity 340 ug/dL (265-497); Transferrin 264 mg/dL (206-381)
[2023-07-05 11:44] LABS: Ferritin 32 ng/mL (6-137)
== END ==
PROVIDERS: PCP Registered Nurse Diabetes Educator; Referring Provider Registered Nurse Diabetes Educator; Visit Provider Registered Nurse Diabetes Educator
DX: Z00.00 Encounter for general adult medical examination without abnormal findings (principal)
CPT/HCPCS: 36415; 82728; 82947; 83036; 83540; 83550; 85025

== ENCOUNTER → 2024-04-20 14:15 | Outpatient (CLI) | payer OTHER, SELFPAY ==
--- NOTE | 2024-04-20 14:16 | DI.CT.S_ITS ---
PROCEDURE: CT SINUS SCREEN WO CON INDICATIONS: CHRONIC PANSINUSITIS,POSTNASAL DRIP TECHNIQUE: Noncontrast 3.0 mm axial images acquired from the frontal sinuses to the mid-sella, with coronal and sagittal reformats. For radiation dose reduction, the following was used: automated exposure control, adjustment of mA and/or kV according to patient size. COMPARISON: None. FINDINGS: Image quality: Excellent. Maxillary Sinuses: No bony remodeling or destruction. Sinuses are clear. Ethmoid Air Cells: No bony remodeling or destruction. Sinuses are clear. Sphenoid Sinuses: No bony remodeling or destruction. Sinuses are clear. Frontal Sinuses: No bony remodeling or destruction. Sinuses are clear. Ostiomeatal Complexes: Ostiomeatal complexes are patent. No Jimbo cells. Miscellaneous: Visualized intra-orbital contents are normal. Left margarita bullosa. Leftward nasal septal deviation with spurring. IMPRESSION: Paranasal sinuses are clear. Dictated by: Trey Wu M.D. on 04/20/2024 at 16:44 Approved by: Trey Wu M.D. on 04/20/2024 at 16:46
== END ==
PROVIDERS: PCP Registered Nurse Diabetes Educator; Referring Provider Otolaryngology; Visit Provider Otolaryngology
DX: J32.4 Chronic pansinusitis (principal); R09.82 Postnasal drip; M25.562 Pain in left knee; G89.29 Other chronic pain; M25.462 Effusion, left knee
CPT/HCPCS: 70486; 73562

== ENCOUNTER → 2024-04-20 16:46 | Outpatient (CLI) | payer OTHER, SELFPAY ==
--- NOTE | 2024-04-20 16:48 | DI.RAD.S_ITS ---
PROCEDURE: XR KNEE LT 3V INDICATIONS: eval chronic knee pain TECHNIQUE: 3 views of the knee were acquired. COMPARISON: None. FINDINGS: Bones: There are no osseous abnormalities. Joints: The tibialfemoral and patellofemoral joints are normal in width and alignment without arthritic change. . Small effusion noted. Soft tissues: Normal IMPRESSION: Small effusion. Dictated by: Manny Justice M.D. on 04/21/2024 at 11:18 Approved by: Manny Justice M.D. on 04/21/2024 at 11:19
== END ==
PROVIDERS: PCP Registered Nurse Diabetes Educator; Referring Provider Registered Nurse Diabetes Educator; Visit Provider Registered Nurse Diabetes Educator
DX: M25.562 Pain in left knee (principal); G89.29 Other chronic pain; M25.462 Effusion, left knee
CPT/HCPCS: 73562

== ENCOUNTER 2024-07-27 16:15 | Outpatient (RCR) | payer OTHER, SELFPAY ==
--- NOTE | 2024-05-27 13:50 | PT.OIE ---
Current Diagnoses Other chronic pain (05/27/24) Pain in left knee (05/27/24) Past Medical History (Last Reviewed 04/25/24 @ 11:48 by GREG Martinez) Allergic rhinitis Encounter for wellness examination in adult (12/26/20) Mild intermittent asthma without complication Visit Care Team Role Provider Type GREG Martinez Attending Provider Advanced Principal Consultant Family Provider Primary Care Provider Referring Provider Specialty: Medical Address: [address] [place] [address], [facility] Email: [email or web address] Physical Therapy Initial Evaluation PT-OP-A Visit Information Start: 05/26/24 17:13 Freq: Status: Active Protocol: Document 05/27/24 13:50 SAK (Rec: 05/27/24 14:40 SAK Laptop) Out-Patient Physical Therapy Visit Information Visit Information Visit Type Initial Evaluation Visit Start Time 13:50 Visit Stop Time 14:30 Visit Number 1 Evaluation Information Evaluation Date 05/27/24 PT-OP-B Current Condition Start: 05/26/24 17:13 Freq: Status: Active Protocol: Document 05/27/24 13:50 SAK (Rec: 05/27/24 14:40 SAK Laptop) Current Condition History of Current Condition Onset Date 6 yrs ago. Current Complaints left low back, buttock, and knee pain History of Current Condition Fell while holding a child, onto left hip, torquing left leg and back resulting in pain . Tried chiropractor, not helpful. Went to PT friend, not helpful. After 2 years, tried PT, not helpful. Back to PT friend, referred to different chiropractor, helpful initially, pain came back. Going to go back to chiropractor. REferred for accupuncture, scheduled in July. Can't sleep, sit, stand , walk, without increase pain. Goes to gym most every day, similar cross fit, walks several miles per day. Denies knee giving way, but reports clicking on stairs. Exercises quads a lot, no hamstrings. 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 Prior Treatments and Tests x-ray left knee: The tibialfemoral and patellofemoral joints are normal in width and alignment without arthritic change. Small effusion noted. Future Testing and Treatments Planned return to physician and consider MRI if PT not helpful Prior Functional Status Baseline Function- ADL's Independent Baseline Function- Mobility Independent Baseline Function- Gait no difficulty Baseline Function- Work/School no pain Baseline Function- Recreation/Hobbies no pain with exercise or recreaction Current Functional Impairments (Reported) Functional Limitations- ADL's painful Functional Limitations- Mobility/Gait painful and limited Functional Limitations- Work/School painful Functional Limitations- Recreation/ painful Hobbies Functional Limitations- Other difficulty sleeping Personal Factors Other Personal Factors That May Effect Posture and positional habits Therapy/Recovery PT-OP-C Subjective Start: 05/26/24 17:13 Freq: Status: Active Protocol: Document 05/27/24 13:50 SAK (Rec: 05/30/24 08:24 SAK Laptop) Patient Questionnaires Lower Extremity Functional Scale LEFS Score 76 OP-PT Pain Assessment Pain Assessment Grid Paper Pain Assessment Grid Completed Yes Location Left Pain Location Details low back, buttock, hip, knee Intensity 7 Scale Used Numeric (0 - 10) Description Aching,Burning,Pressure, Radiating,Stabbing,Tender, Tightness Frequency Frequent Pain Aggravating Factors ADL's,Activity,Exercise, Standing,Sitting Other Pain Aggravating Factors sleeping Pain Alleviating Factors None Pain Behaviors Pain Behaviors Facial Grimacing,Guarding, Wincing PT-OP-G Mobility & Gait Start: 05/26/24 17:13 Freq: Status: Active Protocol: Document 05/27/24 13:50 SAK (Rec: 05/30/24 08:24 SAK Laptop) OP Gait Assessment Gait Gait Assistance Required: Independent Gait Deviations General Gait Pattern Lateral Trunk Lean Factors Limiting Gait Function Factors Limiting Gait Function Pain Stair Climbing Evaluation Evaluation Level of Assist On Stairs Independent Technique/Endurance Stair Climbing Direction Ascend and Descend Comments Stair Climbing Comments increase in pain PT-OP-H Neuro Start: 05/26/24 17:13 Freq: Status: Active Protocol: Document 05/27/24 13:50 SAK (Rec: 05/30/24 08:24 SAK Laptop) Sensation Evaluation Gross Sensation Gross Sensation WNL PT-OP-J Posture/Palpation/Skin Start: 05/26/24 17:13 Freq: Status: Active Protocol: Document 05/27/24 13:50 SAK (Rec: 05/27/24 14:40 SAK Laptop) Posture Evaluation Position Standing Head/C-Spine Posture Forward Head T-Spine Posture Increased Kyphosis L-Spine Posture Decreased Lordosis Shoulder Posture (L) Rounded,(R) Rounded,(L) Forward Pelvis Posture Anteriorly Tilted,(R) Iliac Crest Superior Weight Distribution Weight Shifted Right Knee Posture (L) Genu Recurvatum,(R) Genu Recurvatum Ankle/Foot Posture (L) Pronated Foot Arch (L) Low Arch Palpation Assessment Location left knee Palpation Location joint line Palpation Findings Tenderness PT-OP-K Range of Motion Start: 05/26/24 17:13 Freq: Status: Active Protocol: Document 05/27/24 13:50 SAK (Rec: 05/30/24 08:24 [facility] Laptop) Lumbar Spine Range of Motion Lumbar Spine Active Comments WNL, some increased pinching right l/s with right sidebending Hip Goniometric Range of Motion Hip gordo Hip ROM WFL Yes Knee Goniometric Range of Motion Knee Left Knee ROM WFL Yes Right Knee ROM WFL Yes Knee ROM Limitations Comments uncomfortable left knee with cross legged sitting PT-OP-L Special Tests Start: 05/26/24 17:13 Freq: Status: Active Protocol: Document 05/27/24 13:50 SAK (Rec: 05/30/24 08:24 [facility] Laptop) Special Tests Hip Special Tests Piriformis Test Results - Donavan Test Results - Straight Leg Raise Test Results - RK Test Results - Knee Special Tests Varus- 0 Degrees Test Results - Valgus- 0 Degrees Test Results - Posterior Draw Test Results - Anterior Draw Test Results - Evens Test Test Results - PT-OP-M Strength Start: 05/26/24 17:13 Freq: Status: Active Protocol: Document 05/27/24 13:50 SAK (Rec: 05/30/24 08:24 SAK Laptop) Trunk Strength Trunk Manual Muscle Testing Core Stabilization poor, difficulty activating TrA Hip Strength Hip Manual Muscle Testing Left Flexion (L2) 4- Good- Extension (S1) 4- Good- Abduction 4- Good- Adduction 4- Good- External Rotation 4- Good- Internal Rotation 4- Good- Right Flexion (L2) 4 Good Extension (S1) 4- Good- Abduction 4 Good Adduction 4 Good External Rotation 4 Good Internal Rotation 4- Good- Knee Strength Knee Manual Muscle Testing Left Flexion (S2) 4 Good Extension (L3) 4 Good Right Flexion (S2) 5 Normal Extension (L3) 5 Normal PT-OP-Q Treatments Start: 05/26/24 17:13 Freq: Status: Active Protocol: Document 05/27/24 13:50 SAK (Rec: 05/30/24 08:24 SAK Laptop) Self-Care/Home Management Treatment Education Patient Education Body Mechanics,Home Exercise Program,Joint Protection, Posture Other Education issued written HO PT-OP-T Assessment and Plan Start: 05/26/24 17:13 Freq: Status: Active Protocol: Document 05/27/24 13:50 SAK (Rec: 05/27/24 17:40 SAK Laptop) Physical Therapy Assessment Rehab Potential Rehabilitation Potential Good Evaluation Complexity Number of Personal Factors/Comorbidities 1-2 Number of Body Systems Impaired 3 Clinical Presentation at Evaluation Evolving Impairments Impairments Activity Tolerance,Pain, Strength Other Concerns Barriers to Rehabilitation 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 Two Impairment postural impairment with asymmetrical positional habits Short Term Goal (STG) Patient to be instructed in neutral posture and body mechanics and do self assessment of habitual positioning and movement including static, dynamic functional movement, and sleep positioning STG Duration 06/26/24 Electronic Warfare Linguist Goal (LTG) Patient to demonstrate good understanding of posture and body mechanics and demonstrate improvement in positioning and movement habits statically and dynamically for improved function LTG Duration 07/27/24 One Impairment LEFS 76% Electronic Warfare Linguist Goal (LTG) Improve LEFS to at least 90% as measure of improved activity tolerance and left LE function LTG Duration 07/27/24 Assessment Summary Assessment Patient presents to PT with function-limiting pain left posterior and lateral hip and low back with apparent compensatory pain left knee. Has long history of similar pain with prior PT and chiropractor treatment with no lasting benefit. X-ray showed small amount effusion in knee. No further imaging has been done. Evaluation revealed tenderness to palpation left knee joint line left greater than right, postural impairment of low arch left foot, hyperextension bilateral knees, tendency toward increased weight bearing left LE with lateral shift, strength impairments in gordo hips left greater than right. Ligamentous and meniscal testing negative. Left leg shorter but responded well to manual treatment, muscle energy technique with improvement to equal followed by stabilization exercise. Feel patient may benefit from PT to decrease her pain, improve her alignment, stabilization and strength and address habitual postural habits at work and in the home to help her return to prior level of function with minimal to no pain. POC was discussed and patient was in agreement. Physical Therapy Plan Frequency and Duration Frequency of Treatment 2x/Week Duration of treatment (weeks) 8 Plan of Care Start Date 05/27/24 Plan of Care End Date 07/27/24 Therapeutic Interventions Therapeutic Interventions Home Exercise Program,Manual Therapy,Neuromuscular Re- education,Patient/Caregiver Education,Self-Care/Home Management,Soft Tissue Mobilization,Taping, Therapeutic Activities, Therapeutic Exercises Modalities Cold Pack/Ice Massage,Electric Stimulation,Hot Packs, Infrared Therapy,Ultrasound Next Visit Focus/Plan Next Note Type Treatment Note
--- NOTE | 2024-06-01 16:29 | PT.OTN ---
Current Diagnoses Other chronic pain (06/01/24) Pain in left knee (06/01/24) Physical Therapy Treatment Note PT-OP-A Visit Information Start: 05/26/24 17:13 Freq: Status: Active Protocol: Document 06/01/24 15:20 SAK (Rec: 06/01/24 16:29 SAK Laptop) Out-Patient Physical Therapy Visit Information Visit Information Visit Type Treatment Note Visit Start Time 15:20 Visit Stop Time 16:10 Visit Number 2 PT-OP-B Current Condition Start: 05/26/24 17:13 Freq: Status: Active Protocol: Document 06/01/24 15:20 SAK (Rec: 06/01/24 16:29 SAK Laptop) Current Condition History of Current Condition Onset Date 6 yrs ago. Current Complaints left low back, buttock, and knee pain History of Current Condition Fell while holding a child, onto left hip, torquing left leg and back resulting in pain . Tried chiropractor, not helpful. Went to PT friend, not helpful. After 2 years, tried PT, not helpful. Back to PT friend, referred to different chiropractor, helpful initially, pain came back. Going to go back to chiropractor. REferred for accupuncture, scheduled in July. Can't sleep, sit, stand , walk, without increase pain. Goes to gym most every day, similar cross fit, walks several miles per day. Denies knee giving way, but reports clicking on stairs. Exercises quads a lot, no hamstrings. 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 Prior Treatments and Tests x-ray left knee: The tibialfemoral and patellofemoral joints are normal in width and alignment without arthritic change. Small effusion noted. Future Testing and Treatments Planned return to physician and consider MRI if PT not helpful PT-OP-C Subjective Start: 05/26/24 17:13 Freq: Status: Active Protocol: Document 06/01/24 15:20 SAK (Rec: 06/01/24 16:29 SAK Laptop) OP-PT Subjective Patient Comments Patient Comments Went to chiropractor yesterday , popped me good, felt right low back tight. Then on traction table. Pain better in hip and back, left knee painful, went for a walk this am. Trying to work on posture and body mechanics at work per PT instructed. Also paying attention to core stab as instructed. Compliant to HEP. PT-OP-G Mobility & Gait Start: 05/26/24 17:13 Freq: Status: Active Protocol: Document 05/27/24 13:50 SAK (Rec: 05/30/24 08:24 SAK Laptop) OP Gait Assessment Gait Gait Assistance Required: Independent Gait Deviations General Gait Pattern Lateral Trunk Lean Factors Limiting Gait Function Factors Limiting Gait Function Pain Stair Climbing Evaluation Evaluation Level of Assist On Stairs Independent Technique/Endurance Stair Climbing Direction Ascend and Descend Comments Stair Climbing Comments increase in pain PT-OP-H Neuro Start: 05/26/24 17:13 Freq: Status: Active Protocol: Document 05/27/24 13:50 SAK (Rec: 05/30/24 08:24 SAK Laptop) Sensation Evaluation Gross Sensation Gross Sensation WNL PT-OP-J Posture/Palpation/Skin Start: 05/26/24 17:13 Freq: Status: Active Protocol: Document 05/27/24 13:50 SAK (Rec: 05/27/24 14:40 SAK Laptop) Posture Evaluation Position Standing Head/C-Spine Posture Forward Head T-Spine Posture Increased Kyphosis L-Spine Posture Decreased Lordosis Shoulder Posture (L) Rounded,(R) Rounded,(L) Forward Pelvis Posture Anteriorly Tilted,(R) Iliac Crest Superior Weight Distribution Weight Shifted Right Knee Posture (L) Genu Recurvatum,(R) Genu Recurvatum Ankle/Foot Posture (L) Pronated Foot Arch (L) Low Arch Palpation Assessment Location left knee Palpation Location joint line Palpation Findings Tenderness PT-OP-K Range of Motion Start: 05/26/24 17:13 Freq: Status: Active Protocol: Document 05/27/24 13:50 SAK (Rec: 05/30/24 08:24 SAK Laptop) Lumbar Spine Range of Motion Lumbar Spine Active Comments WNL, some increased pinching right l/s with right sidebending Hip Goniometric Range of Motion Hip gordo Hip ROM WFL Yes Knee Goniometric Range of Motion Knee Left Knee ROM WFL Yes Right Knee ROM WFL Yes Knee ROM Limitations Comments uncomfortable left knee with cross legged sitting PT-OP-L Special Tests Start: 05/26/24 17:13 Freq: Status: Active Protocol: Document 05/27/24 13:50 SAK (Rec: 05/30/24 08:24 SAK Laptop) Special Tests Hip Special Tests Piriformis Test Results - Donavan Test Results - Straight Leg Raise Test Results - RK Test Results - Knee Special Tests Varus- 0 Degrees Test Results - Valgus- 0 Degrees Test Results - Posterior Draw Test Results - Anterior Draw Test Results - Evens Test Test Results - PT-OP-M Strength Start: 05/26/24 17:13 Freq: Status: Active Protocol: Document 05/27/24 13:50 SAK (Rec: 05/30/24 08:24 SAK Laptop) Trunk Strength Trunk Manual Muscle Testing Core Stabilization poor, difficulty activating TrA Hip Strength Hip Manual Muscle Testing Left Flexion (L2) 4- Good- Extension (S1) 4- Good- Abduction 4- Good- Adduction 4- Good- External Rotation 4- Good- Internal Rotation 4- Good- Right Flexion (L2) 4 Good Extension (S1) 4- Good- Abduction 4 Good Adduction 4 Good External Rotation 4 Good Internal Rotation 4- Good- Knee Strength Knee Manual Muscle Testing Left Flexion (S2) 4 Good Extension (L3) 4 Good Right Flexion (S2) 5 Normal Extension (L3) 5 Normal PT-OP-Q Treatments Start: 05/26/24 17:13 Freq: Status: Active Protocol: Document 06/01/24 15:20 SAK (Rec: 06/01/24 16:29 SAK Laptop) Cardio Equipment Recumbent Stepper (Sci-Fit) Duration (Minutes) 5 Resistance 4 Seat Position 7 Other Nu Step, cues for neutral LE's , difficulty with left Gym Equipment Cable Column (Body Solid) HS curl Details unil Resistance 20 Reps/Time 10x Shuttle Recovery SL squat Details band at knee to provide adduction force Resistance 37 Shuttle Recovery Platform Stable Reps/Time 10x2 Therapeutic Exercises Supine Exercises 90/90 core isometric Supine Exercise Name straight and crossed Reps/Minutes 5x5 Sidelying Exercises hip ab Sidelying Exercise Name wall Reps/Minutes 10x Comments more difficult L Sitting Exercises chair squat Equipment Used chair, mirror for visual feedback Reps/Minutes 10x Comments cues neutral LE's in line with feet Standing Exercises toe raises Equipment Used wall (leaning back into wall) Reps/Minutes 10x heel raise Equipment Used stair Reps/Minutes 10x Manual Therapy Treatment Consent Patient gave verbal consent for manual Yes treatment Taping left knee Treatment Focus patellar realignment Type of Tape Kinesio Tape Skin Inspection intact Comments y strip base medial, tails stretched superior and inf patella 75% stretch, applied with knee 20 deg flex 2 Y strips: base tib tuberosity with tails stretched med and lateral patella, and base sup patella with tails stretched med and lateral to patella ending inf; 50% stretch applied with knee in flex Self-Care/Home Management Treatment Education Patient Education Body Mechanics,Home Exercise Program,Joint Protection, Posture Other Education updated HEP HO PT-OP-T Assessment and Plan Start: 05/26/24 17:13 Freq: Status: Active Protocol: Document 06/01/24 15:20 SAK (Rec: 06/01/24 16:29 SAK Laptop) Physical Therapy Assessment Impairments Impairments Activity Tolerance,Pain, Strength Goals Three Impairment impaired strength and core stabilization Short Term Goal (STG) Patient to be instructed in progressive, individualized strengthening and core stabilization exercises and be issued written handouts STG Duration 06/26/24 Sample Examiner Goal (LTG) Patient will be independent and compliant with HEP and demonstrate improvement in strength to 5/5 and good core stabilization in functional tasks to allow her to work without an increase in pain. Two Impairment postural impairment with asymmetrical positional habits Short Term Goal (STG) Patient to be instructed in neutral posture and body mechanics and do self assessment of habitual positioning and movement including static, dynamic functional movement, and sleep positioning STG Duration 06/26/24 Penitentiary Goal (LTG) Patient to demonstrate good understanding of posture and body mechanics and demonstrate improvement in positioning and movement habits statically and dynamically for improved function LTG Duration 07/27/24 One Impairment LEFS 76% Penitentiary Goal (LTG) Improve LEFS to at least 90% as measure of improved activity tolerance and left LE function LTG Duration 07/27/24 Assessment Summary Assessment Notable increased wearing away lateral show right vs left. On NuStep notable apparent left leg longer than right. Notable hip shift left and rotation right with chair squat; manual PT correction with patient reporting felt good. Patient demonstrating improving understanding of likely contribution of work positional and movement habits contributory and working to correct. Physical Therapy Plan Frequency and Duration Frequency of Treatment 2x/Week Duration of treatment (weeks) 8 Plan of Care Start Date 05/27/24 Plan of Care End Date 07/27/24 Therapeutic Interventions Therapeutic Interventions Home Exercise Program,Manual Therapy,Neuromuscular Re- education,Patient/Caregiver Education,Self-Care/Home Management,Soft Tissue Mobilization,Taping, Therapeutic Activities, Therapeutic Exercises Modalities Cold Pack/Ice Massage,Electric Stimulation,Hot Packs, Infrared Therapy,Ultrasound Next Visit Focus/Plan Next Note Type Treatment Note Next Visit Plan Review chair squat, hip ab, progress core stab as caitie. Consider trial bridge and single leg bridge, bird dog, side planks. Assess pelvic alignment and perform MET or other manual techniques as indicated. Assess response to KT tape and retape as indicated.
--- NOTE | 2024-06-04 16:00 | PT.OTN ---
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 Current Complaints left low back, buttock, and knee pain History of Current Condition Fell while holding a child, onto left hip, torquing left leg and back resulting in pain . Tried chiropractor, not helpful. Went to PT friend, not helpful. After 2 years, tried PT, not helpful. Back to PT friend, referred to different chiropractor, helpful initially, pain came back. Going to go back to chiropractor. REferred for accupuncture, scheduled in July. Can't sleep, sit, stand , walk, without increase pain. Goes to gym most every day, similar cross fit, walks several miles per day. Denies knee giving way, but reports clicking on stairs. Exercises quads a lot, no hamstrings. 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 Prior Treatments and Tests x-ray left knee: The tibialfemoral and patellofemoral joints are normal in width and alignment without arthritic change. Small effusion noted. Future Testing and Treatments Planned return to physician and consider MRI if PT not helpful PT-OP-C Subjective Start: 05/26/24 17:13 Freq: Status: Active Protocol: Document 06/04/24 13:59 NBM (Rec: 06/04/24 16:56 NBM Laptop) OP-PT Subjective Patient Comments Patient Comments Inna reports her L knee is doing much better thanks to the KT tape, and only pain she 's had now with it was getting up yesterday after sitting for two hours, when it hurt behind the knee. PT-OP-G Mobility & Gait Start: 05/26/24 17:13 Freq: Status: Active Protocol: Document 05/27/24 13:50 SAK (Rec: 05/30/24 08:24 SAK Laptop) OP Gait Assessment Gait Gait Assistance Required: Independent Gait Deviations General Gait Pattern Lateral Trunk Lean Factors Limiting Gait Function Factors Limiting Gait Function Pain Stair Climbing Evaluation Evaluation Level of Assist On Stairs Independent Technique/Endurance Stair Climbing Direction Ascend and Descend Comments Stair Climbing Comments increase in pain PT-OP-H Neuro Start: 05/26/24 17:13 Freq: Status: Active Protocol: Document 05/27/24 13:50 SAK (Rec: 05/30/24 08:24 SAK Laptop) Sensation Evaluation Gross Sensation Gross Sensation WNL PT-OP-J Posture/Palpation/Skin Start: 05/26/24 17:13 Freq: Status: Active Protocol: Document 05/27/24 13:50 SAK (Rec: 05/27/24 14:40 SAK Laptop) Posture Evaluation Position Standing Head/C-Spine Posture Forward Head T-Spine Posture Increased Kyphosis L-Spine Posture Decreased Lordosis Shoulder Posture (L) Rounded,(R) Rounded,(L) Forward Pelvis Posture Anteriorly Tilted,(R) Iliac Crest Superior Weight Distribution Weight Shifted Right Knee Posture (L) Genu Recurvatum,(R) Genu Recurvatum Ankle/Foot Posture (L) Pronated Foot Arch (L) Low Arch Palpation Assessment Location left knee Palpation Location joint line Palpation Findings Tenderness PT-OP-K Range of Motion Start: 05/26/24 17:13 Freq: Status: Active Protocol: Document 05/27/24 13:50 SAK (Rec: 05/30/24 08:24 SAK Laptop) Lumbar Spine Range of Motion Lumbar Spine Active Comments WNL, some increased pinching right l/s with right sidebending Hip Goniometric Range of Motion Hip gordo Hip ROM WFL Yes Knee Goniometric Range of Motion Knee Left Knee ROM WFL Yes Right Knee ROM WFL Yes Knee ROM Limitations Comments uncomfortable left knee with cross legged sitting PT-OP-L Special Tests Start: 05/26/24 17:13 Freq: Status: Active Protocol: Document 05/27/24 13:50 SAK (Rec: 05/30/24 08:24 SAK Laptop) Special Tests Hip Special Tests Piriformis Test Results - Donavan Test Results - Straight Leg Raise Test Results - RK Test Results - Knee Special Tests Varus- 0 Degrees Test Results - Valgus- 0 Degrees Test Results - Posterior Draw Test Results - Anterior Draw Test Results - Evens Test Test Results - PT-OP-M Strength Start: 05/26/24 17:13 Freq: Status: Active Protocol: Document 05/27/24 13:50 SAK (Rec: 05/30/24 08:24 SAK Laptop) Trunk Strength Trunk Manual Muscle Testing Core Stabilization poor, difficulty activating TrA Hip Strength Hip Manual Muscle Testing Left Flexion (L2) 4- Good- Extension (S1) 4- Good- Abduction 4- Good- Adduction 4- Good- External Rotation 4- Good- Internal Rotation 4- Good- Right Flexion (L2) 4 Good Extension (S1) 4- Good- Abduction 4 Good Adduction 4 Good External Rotation 4 Good Internal Rotation 4- Good- Knee Strength Knee Manual Muscle Testing Left Flexion (S2) 4 Good Extension (L3) 4 Good Right Flexion (S2) 5 Normal Extension (L3) 5 Normal PT-OP-Q Treatments Start: 05/26/24 17:13 Freq: Status: Active Protocol: Document 06/04/24 13:59 NB (Rec: 06/07/24 07:19 NB [id number] Cardio Equipment Recumbent Stepper (Sci-Fit) Duration (Minutes) 5 Resistance 4 Seat Position 7 Other Nu Step LEs only, cues for neutral LE's Gym Equipment Cable Column (Body Solid) HS curl Details unil, w/ TrA and breathwork ( more challenging) Resistance 20 Reps/Time 15x ea Therapeutic Exercises Sitting Exercises chair squat Equipment Used chair, mirror for visual feedback>no mirror Reps/Minutes 10x Comments cues neutral LE's in line with feet, hip hinge Standing Exercises calf stretch Standing Exercise Name gastrocnemius and soleus: 1. lunge position 2. 4 step Side bilateral Reps/Minutes 30 ea Comments positive feedback response using step, cues for painfree range toe raises Equipment Used ARTHUR Reps/Minutes 10x heel raise Equipment Used stair Reps/Minutes 10x Self-Care/Home Management Treatment Education Patient Education Body Mechanics,Home Exercise Program,Joint Protection, Posture Other Education Added to HEP: gastroc/soleus stretch on step- no HO provided. -Edu to pt w/ visual aids re: Transverse abdominis m. anatomy and physiology and relationship w/ diaphragm, pelvic floor, hip adductors, and breath holding compensation patterns; HEP review w/ emphasis on TrA activation and breathwork. -Discussed pt's frustration w/ ongoing pain: i/s pt in diaphragmatic breathing exercises for pain management via Parasympathetic NS activation; markus provided Thank you, body, for all you did today. PT-OP-T Assessment and Plan Start: 05/26/24 17:13 Freq: Status: Active Protocol: Document 06/04/24 13:59 NBM (Rec: 06/04/24 16:56 NBM Laptop) Physical Therapy Assessment Goals Three Impairment impaired strength and core stabilization Short Term Goal (STG) Patient to be instructed in progressive, individualized strengthening and core stabilization exercises and be issued written handouts STG Duration 06/26/24 Auto Machinist Goal (LTG) Patient will be independent and compliant with HEP and demonstrate improvement in strength to 5/5 and good core stabilization in functional tasks to allow her to work without an increase in pain. Two Impairment postural impairment with asymmetrical positional habits Short Term Goal (STG) Patient to be instructed in neutral posture and body mechanics and do self assessment of habitual positioning and movement including static, dynamic functional movement, and sleep positioning STG Duration 06/26/24 Auto Machinist Goal (LTG) Patient to demonstrate good understanding of posture and body mechanics and demonstrate improvement in positioning and movement habits statically and dynamically for improved function LTG Duration 07/27/24 One Impairment LEFS 76% Auto Machinist Goal (LTG) Improve LEFS to at least 90% as measure of improved activity tolerance and left LE function LTG Duration 07/27/24 Assessment Summary Assessment Inna presents w/ KT tape on L knee and no knee pain which she attributes to KT tape. Reviewed flags for removal of KT tape or 5 days maximum and pt able to teach back instructions. She requires cues for maintaining pain-free range of motion and for breath holding. She demonstrates improved self- awareness of chair squat mechanics after cueing for hip hinge and mirror, and is able to perform consistently without mirror. She is more challenged with hamstring curls when cued for TrA and breathwork. Edu to pt w/ visual aids re: Gastrocnemius and Soleus m., and re: Transverse abdominis m. anatomy and physiology and relationship w/ diaphragm, pelvic floor, hip adductors, and breath holding compensation patterns. Pt instructed to perform HEP w/ core and breathwork focus. Discussed pt's frustration w/ ongoing pain: i/s pt in diaphragmatic breathing exercises for pain management via Parasympathetic NS activation and Thank you, body mantra provided. Physical Therapy Plan Frequency and Duration Frequency of Treatment 2x/Week Duration of treatment (weeks) 8 Plan of Care Start Date 05/27/24 Plan of Care End Date 07/27/24 Therapeutic Interventions Therapeutic Interventions Home Exercise Program,Manual Therapy,Neuromuscular Re- education,Patient/Caregiver Education,Self-Care/Home Management,Soft Tissue Mobilization,Taping, Therapeutic Activities, Therapeutic Exercises Modalities Cold Pack/Ice Massage,Electric Stimulation,Hot Packs, Infrared Therapy,Ultrasound Next Visit Focus/Plan Next Note Type Treatment Note Next Visit Plan Review chair squat, hip ab, progress core stab as caitie. Consider trial bridge and single leg bridge, bird dog, side planks. Assess pelvic alignment and perform MET or other manual techniques as indicated. Assess response to KT tape and retape as indicated.
--- NOTE | 2024-06-08 17:56 | PT.OTN ---
Current Diagnoses Other chronic pain (06/08/24) Pain in left knee (06/08/24) Physical Therapy Treatment Note PT-OP-A Visit Information Start: 05/26/24 17:13 Freq: Status: Active Protocol: Document 06/08/24 16:24 AB (Rec: 06/08/24 17:56 AB Laptop) Out-Patient Physical Therapy Visit Information Visit Information Visit Type Treatment Note Visit Note Access Code: [email or web address] Visit Start Time 16:58 Visit Stop Time 17:48 Visit Number 4 Number of PRESSURE WELDER Visits 1 PT-OP-B Current Condition Start: 05/26/24 17:13 Freq: Status: Active Protocol: Document 06/01/24 15:20 SAK (Rec: 06/01/24 16:29 SAK Laptop) Current Condition History of Current Condition Onset Date 6 yrs ago. Current Complaints left low back, buttock, and knee pain History of Current Condition Fell while holding a child, onto left hip, torquing left leg and back resulting in pain . Tried chiropractor, not helpful. Went to PT friend, not helpful. After 2 years, tried PT, not helpful. Back to PT friend, referred to different chiropractor, helpful initially, pain came back. Going to go back to chiropractor. REferred for accupuncture, scheduled in July. Can't sleep, sit, stand , walk, without increase pain. Goes to gym most every day, similar cross fit, walks several miles per day. Denies knee giving way, but reports clicking on stairs. Exercises quads a lot, no hamstrings. 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 Prior Treatments and Tests x-ray left knee: The tibialfemoral and patellofemoral joints are normal in width and alignment without arthritic change. Small effusion noted. Future Testing and Treatments Planned return to physician and consider MRI if PT not helpful PT-OP-C Subjective Start: 05/26/24 17:13 Freq: Status: Active Protocol: Document 06/08/24 16:24 AB (Rec: 06/08/24 17:56 AB Laptop) OP-PT Subjective Patient Comments Patient Comments Inna reports L knee pain is 5/10 start of session, standing and ascending/ descending stairs ( no change) peripatellar area. PT-OP-G Mobility & Gait Start: 05/26/24 17:13 Freq: Status: Active Protocol: Document 05/27/24 13:50 SAK (Rec: 05/30/24 08:24 SAK Laptop) OP Gait Assessment Gait Gait Assistance Required: Independent Gait Deviations General Gait Pattern Lateral Trunk Lean Factors Limiting Gait Function Factors Limiting Gait Function Pain Stair Climbing Evaluation Evaluation Level of Assist On Stairs Independent Technique/Endurance Stair Climbing Direction Ascend and Descend Comments Stair Climbing Comments increase in pain PT-OP-H Neuro Start: 05/26/24 17:13 Freq: Status: Active Protocol: Document 05/27/24 13:50 SAK (Rec: 05/30/24 08:24 SAK Laptop) Sensation Evaluation Gross Sensation Gross Sensation WNL PT-OP-J Posture/Palpation/Skin Start: 05/26/24 17:13 Freq: Status: Active Protocol: Document 05/27/24 13:50 SAK (Rec: 05/27/24 14:40 SAK Laptop) Posture Evaluation Position Standing Head/C-Spine Posture Forward Head T-Spine Posture Increased Kyphosis L-Spine Posture Decreased Lordosis Shoulder Posture (L) Rounded,(R) Rounded,(L) Forward Pelvis Posture Anteriorly Tilted,(R) Iliac Crest Superior Weight Distribution Weight Shifted Right Knee Posture (L) Genu Recurvatum,(R) Genu Recurvatum Ankle/Foot Posture (L) Pronated Foot Arch (L) Low Arch Palpation Assessment Location left knee Palpation Location joint line Palpation Findings Tenderness PT-OP-K Range of Motion Start: 05/26/24 17:13 Freq: Status: Active Protocol: Document 05/27/24 13:50 SAK (Rec: 05/30/24 08:24 SAK Laptop) Lumbar Spine Range of Motion Lumbar Spine Active Comments WNL, some increased pinching right l/s with right sidebending Hip Goniometric Range of Motion Hip gordo Hip ROM WFL Yes Knee Goniometric Range of Motion Knee Left Knee ROM WFL Yes Right Knee ROM WFL Yes Knee ROM Limitations Comments uncomfortable left knee with cross legged sitting PT-OP-L Special Tests Start: 05/26/24 17:13 Freq: Status: Active Protocol: Document 05/27/24 13:50 SAK (Rec: 05/30/24 08:24 SAK Laptop) Special Tests Hip Special Tests Piriformis Test Results - Donavan Test Results - Straight Leg Raise Test Results - RK Test Results - Knee Special Tests Varus- 0 Degrees Test Results - Valgus- 0 Degrees Test Results - Posterior Draw Test Results - Anterior Draw Test Results - Evens Test Test Results - PT-OP-M Strength Start: 05/26/24 17:13 Freq: Status: Active Protocol: Document 05/27/24 13:50 SAK (Rec: 05/30/24 08:24 SAK Laptop) Trunk Strength Trunk Manual Muscle Testing Core Stabilization poor, difficulty activating TrA Hip Strength Hip Manual Muscle Testing Left Flexion (L2) 4- Good- Extension (S1) 4- Good- Abduction 4- Good- Adduction 4- Good- External Rotation 4- Good- Internal Rotation 4- Good- Right Flexion (L2) 4 Good Extension (S1) 4- Good- Abduction 4 Good Adduction 4 Good External Rotation 4 Good Internal Rotation 4- Good- Knee Strength Knee Manual Muscle Testing Left Flexion (S2) 4 Good Extension (L3) 4 Good Right Flexion (S2) 5 Normal Extension (L3) 5 Normal PT-OP-Q Treatments Start: 05/26/24 17:13 Freq: Status: Active Protocol: Document 06/08/24 16:24 AB (Rec: 06/08/24 17:56 AB Laptop) Therapeutic Exercises Supine Exercises deep neck flexor head lift Supine Exercise Name HEP Reps/Minutes X 5 for 7 sec holds Comments increased verbal cues for chin tuck and lift without ex neck flexion piriformis stretch Side bilateral Reps/Minutes 60 sec X 2 each LE Comments Verbal cues Sidelying Exercises side plank Sidelying Exercise Name HEP Side bilateral Reps/Minutes 7 sec X 5 Comments verbal cues Standing Exercises sit to stand Reps/Minutes X 4 Comments Pt ed mechanics of sit to stand and self tactile cues for hip hinge bird dog Standing Exercise Name HEP ( in counter plank position Side bilateral Reps/Minutes X 5 X 7 sec Comments verbal and visual cues calf stretch Standing Exercise Name 1.gastroc and soleus on step 2 . step through one LE on ARTHUR Side bilateral Reps/Minutes 1. 60 sec 2 X 10 each Manual Therapy Treatment Consent Patient gave verbal consent for manual Yes treatment Soft Tissue Mobilization bilateral hips Body Location glute/pirifornis area Mobilization Type Cross-Friction,Rolling Intensity/Depth Moderate Body Position Sidelying Taping left knee Treatment Focus patellar realignment Type of Tape Kinesio Tape Skin Inspection intact Comments y strip base medial, tails stretched superior and inf patella 75% stretch, applied with knee 20 deg flex 2 Y strips: base tib tuberosity with tails stretched med and lateral patella, and base sup patella with tails stretched med and lateral to patella ending inf; 50% stretch applied with knee in flex Manual Techniques MET for pubic shotgun and R AI L PI Reps/Duration 6 sec X 6 each PT-OP-T Assessment and Plan Start: 05/26/24 17:13 Freq: Status: Active Protocol: Document 06/08/24 16:24 AB (Rec: 06/08/24 17:56 AB Laptop) Physical Therapy Assessment Goals Three Impairment impaired strength and core stabilization Short Term Goal (STG) Patient to be instructed in progressive, individualized strengthening and core stabilization exercises and be issued written handouts STG Duration 06/26/24 Honing Machine Operator Tool Goal (LTG) Patient will be independent and compliant with HEP and demonstrate improvement in strength to 5/5 and good core stabilization in functional tasks to allow her to work without an increase in pain. Two Impairment postural impairment with asymmetrical positional habits Short Term Goal (STG) Patient to be instructed in neutral posture and body mechanics and do self assessment of habitual positioning and movement including static, dynamic functional movement, and sleep positioning STG Duration 06/26/24 Honing Machine Operator Tool Goal (LTG) Patient to demonstrate good understanding of posture and body mechanics and demonstrate improvement in positioning and movement habits statically and dynamically for improved function LTG Duration 07/27/24 One Impairment LEFS 76% Honing Machine Operator Tool Goal (LTG) Improve LEFS to at least 90% as measure of improved activity tolerance and left LE function LTG Duration 07/27/24 Assessment Summary Assessment Inna reports pain 0/10 post manual and taping ambulating and ascending and descending stairs. 0/10 end of session. Good return demonstration for hip hinge with sit to and from stand. Physical Therapy Plan Frequency and Duration Frequency of Treatment 2x/Week Duration of treatment (weeks) 8 Plan of Care Start Date 05/27/24 Plan of Care End Date 07/27/24 Next Visit Focus/Plan Next Note Type Treatment Note Next Visit Plan Review chair squat, hip ab, progress core stab as caitie. Consider trial bridge and single leg bridge, bird dog, side planks. Assess pelvic alignment and perform MET or other manual techniques as indicated. Assess response to KT tape and retape as indicated.
--- NOTE | 2024-06-10 15:44 | PT.OTN ---
Current Diagnoses Other chronic pain (06/10/24) Pain in left knee (06/10/24) Physical Therapy Treatment Note PT-OP-A Visit Information Start: 05/26/24 17:13 Freq: Status: Active Protocol: Document 06/10/24 13:04 NBM (Rec: 06/10/24 14:05 NBM Laptop) Out-Patient Physical Therapy Visit Information Visit Information Visit Type Treatment Note Visit Note Access Code: [email or web address] Visit Start Time 13:04 Visit Stop Time 13:55 Visit Number 5 Number of TOWER OPERATOR Visits 2 Evaluation Information Evaluation Date 05/27/24 PT-OP-B Current Condition Start: 05/26/24 17:13 Freq: Status: Active Protocol: Document 06/01/24 15:20 SAK (Rec: 06/01/24 16:29 SAK Laptop) Current Condition History of Current Condition Onset Date 6 yrs ago. Current Complaints left low back, buttock, and knee pain History of Current Condition Fell while holding a child, onto left hip, torquing left leg and back resulting in pain . Tried chiropractor, not helpful. Went to PT friend, not helpful. After 2 years, tried PT, not helpful. Back to PT friend, referred to different chiropractor, helpful initially, pain came back. Going to go back to chiropractor. REferred for accupuncture, scheduled in July. Can't sleep, sit, stand , walk, without increase pain. Goes to gym most every day, similar cross fit, walks several miles per day. Denies knee giving way, but reports clicking on stairs. Exercises quads a lot, no hamstrings. 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 Prior Treatments and Tests x-ray left knee: The tibialfemoral and patellofemoral joints are normal in width and alignment without arthritic change. Small effusion noted. Future Testing and Treatments Planned return to physician and consider MRI if PT not helpful PT-OP-C Subjective Start: 05/26/24 17:13 Freq: Status: Active Protocol: Document 06/10/24 13:04 NBM (Rec: 06/10/24 14:05 NBM Laptop) OP-PT Subjective Patient Comments Patient Comments Inna reports the KT tape makes a huge difference in knee pain for her. She's using her hand to help her with squats and sitting correctly. She wants to review the standing bird dog ex and use the gym equipment for legs today. She went line dancing and aftewards her hips front and back were on fire, back was okay. PT-OP-G Mobility & Gait Start: 05/26/24 17:13 Freq: Status: Active Protocol: Document 05/27/24 13:50 SAK (Rec: 05/30/24 08:24 SAK Laptop) OP Gait Assessment Gait Gait Assistance Required: Independent Gait Deviations General Gait Pattern Lateral Trunk Lean Factors Limiting Gait Function Factors Limiting Gait Function Pain Stair Climbing Evaluation Evaluation Level of Assist On Stairs Independent Technique/Endurance Stair Climbing Direction Ascend and Descend Comments Stair Climbing Comments increase in pain PT-OP-H Neuro Start: 05/26/24 17:13 Freq: Status: Active Protocol: Document 05/27/24 13:50 SAK (Rec: 05/30/24 08:24 SAK Laptop) Sensation Evaluation Gross Sensation Gross Sensation WNL PT-OP-J Posture/Palpation/Skin Start: 05/26/24 17:13 Freq: Status: Active Protocol: Document 05/27/24 13:50 SAK (Rec: 05/27/24 14:40 SAK Laptop) Posture Evaluation Position Standing Head/C-Spine Posture Forward Head T-Spine Posture Increased Kyphosis L-Spine Posture Decreased Lordosis Shoulder Posture (L) Rounded,(R) Rounded,(L) Forward Pelvis Posture Anteriorly Tilted,(R) Iliac Crest Superior Weight Distribution Weight Shifted Right Knee Posture (L) Genu Recurvatum,(R) Genu Recurvatum Ankle/Foot Posture (L) Pronated Foot Arch (L) Low Arch Palpation Assessment Location left knee Palpation Location joint line Palpation Findings Tenderness PT-OP-K Range of Motion Start: 05/26/24 17:13 Freq: Status: Active Protocol: Document 05/27/24 13:50 SAK (Rec: 05/30/24 08:24 SAK Laptop) Lumbar Spine Range of Motion Lumbar Spine Active Comments WNL, some increased pinching right l/s with right sidebending Hip Goniometric Range of Motion Hip gordo Hip ROM WFL Yes Knee Goniometric Range of Motion Knee Left Knee ROM WFL Yes Right Knee ROM WFL Yes Knee ROM Limitations Comments uncomfortable left knee with cross legged sitting PT-OP-L Special Tests Start: 05/26/24 17:13 Freq: Status: Active Protocol: Document 05/27/24 13:50 SAK (Rec: 05/30/24 08:24 SAK Laptop) Special Tests Hip Special Tests Piriformis Test Results - Donavan Test Results - Straight Leg Raise Test Results - RK Test Results - Knee Special Tests Varus- 0 Degrees Test Results - Valgus- 0 Degrees Test Results - Posterior Draw Test Results - Anterior Draw Test Results - Evens Test Test Results - PT-OP-M Strength Start: 05/26/24 17:13 Freq: Status: Active Protocol: Document 05/27/24 13:50 SAK (Rec: 05/30/24 08:24 SAK Laptop) Trunk Strength Trunk Manual Muscle Testing Core Stabilization poor, difficulty activating TrA Hip Strength Hip Manual Muscle Testing Left Flexion (L2) 4- Good- Extension (S1) 4- Good- Abduction 4- Good- Adduction 4- Good- External Rotation 4- Good- Internal Rotation 4- Good- Right Flexion (L2) 4 Good Extension (S1) 4- Good- Abduction 4 Good Adduction 4 Good External Rotation 4 Good Internal Rotation 4- Good- Knee Strength Knee Manual Muscle Testing Left Flexion (S2) 4 Good Extension (L3) 4 Good Right Flexion (S2) 5 Normal Extension (L3) 5 Normal PT-OP-Q Treatments Start: 05/26/24 17:13 Freq: Status: Active Protocol: Document 06/10/24 13:04 NBM (Rec: 06/10/24 14:05 NBM Laptop) Cardio Equipment Recumbent Stepper (Sci-Fit) Duration (Minutes) 5 Resistance 4 Seat Position 7 Other Nu Step LEs only, cues for neutral LE's Gym Equipment Cable Column (Body Solid) HS curl Details unil, w/ TrA and breathwork; vc for DF Resistance 20 Reps/Time 15x ea, x5 ea w/ eccentric control focus Therapeutic Exercises Supine Exercises bridging Supine Exercise Name 1. DL 2. SL (eccentric> concentric) Resistance Lvl 2 Tb above knees Equipment Used TrA monitoring medial to ASIS Reps/Minutes 1. x10 wo and w Lvl 2 Tb 2. 3 x6 ea Comments occasional cues for breath, LE alignment Standing Exercises bird dog Standing Exercise Name HEP ( in counter plank position) UE/LEs>LE focus only >UE/LEs Side bilateral Equipment Used treadmill rail Reps/Minutes x10-15 ea w/ TrA and breath Comments verbal/tactile cues for Lumb hyperextension & excessive hip rot L>R stance calf stretch Standing Exercise Name gastroc and soleus on step Side bilateral Reps/Minutes 60 sec ea Comments tactile cues for foot placement Self-Care/Home Management Treatment Education Patient Education Body Mechanics,Home Exercise Program,Joint Protection, Posture Other Education verbal review of posture and mechanics with standing, squatting, and lifting. HEP review of bird dog on counter w/ emphasis on core stability and correction of excessive pelvic rotation towards L>R. PT-OP-T Assessment and Plan Start: 05/26/24 17:13 Freq: Status: Active Protocol: Document 06/10/24 13:04 NBM (Rec: 06/10/24 14:05 NBM Laptop) Physical Therapy Assessment Goals Three Impairment impaired strength and core stabilization Short Term Goal (STG) Patient to be instructed in progressive, individualized strengthening and core stabilization exercises and be issued written handouts STG Duration 06/26/24 Barge Loader Goal (LTG) Patient will be independent and compliant with HEP and demonstrate improvement in strength to 5/5 and good core stabilization in functional tasks to allow her to work without an increase in pain. Two Impairment postural impairment with asymmetrical positional habits Short Term Goal (STG) Patient to be instructed in neutral posture and body mechanics and do self assessment of habitual positioning and movement including static, dynamic functional movement, and sleep positioning STG Duration 06/26/24 Barge Loader Goal (LTG) Patient to demonstrate good understanding of posture and body mechanics and demonstrate improvement in positioning and movement habits statically and dynamically for improved function LTG Duration 07/27/24 One Impairment LEFS 76% Skilled Nursing Goal (LTG) Improve LEFS to at least 90% as measure of improved activity tolerance and left LE function LTG Duration 07/27/24 Assessment Summary Assessment Treatment focus on verbal review of posture and mechanics with standing, squatting, and lifting and LE strengthening. HEP review of bird dog on counter w/ emphasis on core stability and correction of excessive pelvic rotation towards L>R. SL bridging is challenging and pt requires occasional cues for breathholding compensation . She uses plantarflexion compensation for unilateral Hamstring curls and requires cues for dorsiflexion throughout movement. Physical Therapy Plan Frequency and Duration Frequency of Treatment 2x/Week Duration of treatment (weeks) 8 Plan of Care Start Date 05/27/24 Plan of Care End Date 07/27/24 Therapeutic Interventions Therapeutic Interventions Home Exercise Program,Manual Therapy,Neuromuscular Re- education,Patient/Caregiver Education,Self-Care/Home Management,Soft Tissue Mobilization,Taping, Therapeutic Activities, Therapeutic Exercises Modalities Cold Pack/Ice Massage,Electric Stimulation,Hot Packs, Infrared Therapy,Ultrasound Next Visit Focus/Plan Next Note Type Treatment Note Next Visit Plan Review chair squat, hip ab, progress core stab as caitie. Assess bridge and single leg bridge for addition to HEP. Consider trial bird dog, side planks. Assess pelvic alignment and perform MET or other manual techniques as indicated. Assess response to KT tape and retape as indicated.
--- NOTE | 2024-06-17 15:26 | PT.OTN ---
Current Diagnoses Other chronic pain (06/17/24) Pain in left knee (06/17/24) Physical Therapy Treatment Note PT-OP-A Visit Information Start: 05/26/24 17:13 Freq: Status: Active Protocol: Document 06/17/24 15:19 KW (Rec: 06/17/24 15:25 KW Laptop) Out-Patient Physical Therapy Visit Information Visit Information Visit Type Treatment Note Visit Start Time 14:30 Visit Stop Time 15:15 Visit Number 6 PT-OP-B Current Condition Start: 05/26/24 17:13 Freq: Status: Active Protocol: Document 06/01/24 15:20 SAK (Rec: 06/01/24 16:29 SAK Laptop) Current Condition History of Current Condition Onset Date 6 yrs ago. Current Complaints left low back, buttock, and knee pain History of Current Condition Fell while holding a child, onto left hip, torquing left leg and back resulting in pain . Tried chiropractor, not helpful. Went to PT friend, not helpful. After 2 years, tried PT, not helpful. Back to PT friend, referred to different chiropractor, helpful initially, pain came back. Going to go back to chiropractor. REferred for accupuncture, scheduled in July. Can't sleep, sit, stand , walk, without increase pain. Goes to gym most every day, similar cross fit, walks several miles per day. Denies knee giving way, but reports clicking on stairs. Exercises quads a lot, no hamstrings. 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 Prior Treatments and Tests x-ray left knee: The tibialfemoral and patellofemoral joints are normal in width and alignment without arthritic change. Small effusion noted. Future Testing and Treatments Planned return to physician and consider MRI if PT not helpful PT-OP-C Subjective Start: 05/26/24 17:13 Freq: Status: Active Protocol: Document 06/17/24 15:19 KW (Rec: 06/17/24 15:25 KW Laptop) OP-PT Subjective Patient Comments Patient Comments tape was helpful but wants to strengthen instead. Goal is to run a full marathon PT-OP-G Mobility & Gait Start: 05/26/24 17:13 Freq: Status: Active Protocol: Document 05/27/24 13:50 SAK (Rec: 05/30/24 08:24 SAK Laptop) OP Gait Assessment Gait Gait Assistance Required: Independent Gait Deviations General Gait Pattern Lateral Trunk Lean Factors Limiting Gait Function Factors Limiting Gait Function Pain Stair Climbing Evaluation Evaluation Level of Assist On Stairs Independent Technique/Endurance Stair Climbing Direction Ascend and Descend Comments Stair Climbing Comments increase in pain PT-OP-H Neuro Start: 05/26/24 17:13 Freq: Status: Active Protocol: Document 05/27/24 13:50 SAK (Rec: 05/30/24 08:24 SAK Laptop) Sensation Evaluation Gross Sensation Gross Sensation WNL PT-OP-J Posture/Palpation/Skin Start: 05/26/24 17:13 Freq: Status: Active Protocol: Document 05/27/24 13:50 SAK (Rec: 05/27/24 14:40 SAK Laptop) Posture Evaluation Position Standing Head/C-Spine Posture Forward Head T-Spine Posture Increased Kyphosis L-Spine Posture Decreased Lordosis Shoulder Posture (L) Rounded,(R) Rounded,(L) Forward Pelvis Posture Anteriorly Tilted,(R) Iliac Crest Superior Weight Distribution Weight Shifted Right Knee Posture (L) Genu Recurvatum,(R) Genu Recurvatum Ankle/Foot Posture (L) Pronated Foot Arch (L) Low Arch Palpation Assessment Location left knee Palpation Location joint line Palpation Findings Tenderness PT-OP-K Range of Motion Start: 05/26/24 17:13 Freq: Status: Active Protocol: Document 05/27/24 13:50 SAK (Rec: 05/30/24 08:24 SAK Laptop) Lumbar Spine Range of Motion Lumbar Spine Active Comments WNL, some increased pinching right l/s with right sidebending Hip Goniometric Range of Motion Hip gordo Hip ROM WFL Yes Knee Goniometric Range of Motion Knee Left Knee ROM WFL Yes Right Knee ROM WFL Yes Knee ROM Limitations Comments uncomfortable left knee with cross legged sitting PT-OP-L Special Tests Start: 05/26/24 17:13 Freq: Status: Active Protocol: Document 05/27/24 13:50 SAK (Rec: 05/30/24 08:24 SAK Laptop) Special Tests Hip Special Tests Piriformis Test Results - Donavan Test Results - Straight Leg Raise Test Results - RK Test Results - Knee Special Tests Varus- 0 Degrees Test Results - Valgus- 0 Degrees Test Results - Posterior Draw Test Results - Anterior Draw Test Results - Evens Test Test Results - PT-OP-M Strength Start: 05/26/24 17:13 Freq: Status: Active Protocol: Document 05/27/24 13:50 SAK (Rec: 05/30/24 08:24 SAK Laptop) Trunk Strength Trunk Manual Muscle Testing Core Stabilization poor, difficulty activating TrA Hip Strength Hip Manual Muscle Testing Left Flexion (L2) 4- Good- Extension (S1) 4- Good- Abduction 4- Good- Adduction 4- Good- External Rotation 4- Good- Internal Rotation 4- Good- Right Flexion (L2) 4 Good Extension (S1) 4- Good- Abduction 4 Good Adduction 4 Good External Rotation 4 Good Internal Rotation 4- Good- Knee Strength Knee Manual Muscle Testing Left Flexion (S2) 4 Good Extension (L3) 4 Good Right Flexion (S2) 5 Normal Extension (L3) 5 Normal PT-OP-Q Treatments Start: 05/26/24 17:13 Freq: Status: Active Protocol: Document 06/17/24 15:19 KW (Rec: 06/17/24 15:25 KW Laptop) Therapeutic Exercises Supine Exercises supine hamstring bridge Supine Exercise Name supine hamstring bridge Reps/Minutes 10 bridging Supine Exercise Name 1. DL 2. SL (eccentric> concentric) Resistance Lvl 2 Tb above knees Equipment Used TrA monitoring medial to ASIS Reps/Minutes 1. x10 wo and w Lvl 2 Tb 2. 3 x6 ea Comments occasional cues for breath, LE alignment piriformis stretch Side bilateral Reps/Minutes 60 sec X 2 each LE Comments Verbal cues 90/90 core isometric Supine Exercise Name straight and crossed Reps/Minutes 5x5 Sitting Exercises chair squat Reps/Minutes 10 Comments cues for exhale and press down thru heels Standing Exercises ARTHUR gastroc soleus stretch Side bilateral Reps/Minutes 3 x 30 sec Gait Training Gait Activity stairs Description full stair case in hallway Comments cues to drive thru heels, swing/pump arms PT-OP-T Assessment and Plan Start: 05/26/24 17:13 Freq: Status: Active Protocol: Document 06/17/24 15:19 KW (Rec: 06/17/24 15:25 KW Laptop) Physical Therapy Assessment Goals Three Impairment impaired strength and core stabilization Short Term Goal (STG) Patient to be instructed in progressive, individualized strengthening and core stabilization exercises and be issued written handouts STG Duration 06/26/24 Crusher And Binder Operator Goal (LTG) Patient will be independent and compliant with HEP and demonstrate improvement in strength to 5/5 and good core stabilization in functional tasks to allow her to work without an increase in pain. Two Impairment postural impairment with asymmetrical positional habits Short Term Goal (STG) Patient to be instructed in neutral posture and body mechanics and do self assessment of habitual positioning and movement including static, dynamic functional movement, and sleep positioning STG Duration 06/26/24 Senior Living Goal (LTG) Patient to demonstrate good understanding of posture and body mechanics and demonstrate improvement in positioning and movement habits statically and dynamically for improved function LTG Duration 07/27/24 One Impairment LEFS 76% Crusher And Binder Operator Goal (LTG) Improve LEFS to at least 90% as measure of improved activity tolerance and left LE function LTG Duration 07/27/24 Progress Towards Goals Progress Comments making excellent gains Physical Therapy Plan Frequency and Duration Frequency of Treatment 2x/Week Duration of treatment (weeks) 8 Plan of Care Start Date 05/27/24 Plan of Care End Date 07/27/24 Therapeutic Interventions Therapeutic Interventions Home Exercise Program,Manual Therapy,Neuromuscular Re- education,Patient/Caregiver Education,Self-Care/Home Management,Soft Tissue Mobilization,Taping, Therapeutic Activities, Therapeutic Exercises Modalities Cold Pack/Ice Massage,Electric Stimulation,Hot Packs, Infrared Therapy,Ultrasound Next Visit Focus/Plan Next Note Type Treatment Note Next Visit Plan Review chair squat, hip ab, progress core stab as caitie. Assess bridge and single leg bridge for addition to HEP. Consider trial bird dog, side planks. Assess pelvic alignment and perform MET or other manual techniques as indicated.
--- NOTE | 2024-06-21 16:28 | PT.OTN ---
Current Diagnoses Other chronic pain (06/21/24) Pain in left knee (06/21/24) Physical Therapy Treatment Note PT-OP-A Visit Information Start: 05/26/24 17:13 Freq: Status: Active Protocol: Document 06/21/24 15:17 SAK (Rec: 06/21/24 16:27 SAK Laptop) Out-Patient Physical Therapy Visit Information Visit Information Visit Type Treatment Note Visit Start Time 13:45 Visit Stop Time 15:15 Visit Number 7 Evaluation Information Evaluation Date 05/27/24 PT-OP-B Current Condition Start: 05/26/24 17:13 Freq: Status: Active Protocol: Document 06/21/24 15:17 SAK (Rec: 06/21/24 16:27 SAK Laptop) Current Condition History of Current Condition Onset Date 6 yrs ago. Current Complaints left low back, buttock, and knee pain History of Current Condition Fell while holding a child, onto left hip, torquing left leg and back resulting in pain . Tried chiropractor, not helpful. Went to PT friend, not helpful. After 2 years, tried PT, not helpful. Back to PT friend, referred to different chiropractor, helpful initially, pain came back. Going to go back to chiropractor. REferred for accupuncture, scheduled in July. Can't sleep, sit, stand , walk, without increase pain. Goes to gym most every day, similar cross fit, walks several miles per day. Denies knee giving way, but reports clicking on stairs. Exercises quads a lot, no hamstrings. 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 Prior Treatments and Tests x-ray left knee: The tibialfemoral and patellofemoral joints are normal in width and alignment without arthritic change. Small effusion noted. Future Testing and Treatments Planned return to physician and consider MRI if PT not helpful PT-OP-C Subjective Start: 05/26/24 17:13 Freq: Status: Active Protocol: Document 06/21/24 15:17 SAK (Rec: 06/21/24 16:27 SAK Laptop) OP-PT Subjective Patient Comments Patient Comments Patient reports more pain without tape. Painful with walking. Brings shoes to show PT: Altra High tops, both worn more outside of heel and forefoot right greater than left. PT-OP-G Mobility & Gait Start: 05/26/24 17:13 Freq: Status: Active Protocol: Document 05/27/24 13:50 SAK (Rec: 05/30/24 08:24 SAK Laptop) OP Gait Assessment Gait Gait Assistance Required: Independent Gait Deviations General Gait Pattern Lateral Trunk Lean Factors Limiting Gait Function Factors Limiting Gait Function Pain Stair Climbing Evaluation Evaluation Level of Assist On Stairs Independent Technique/Endurance Stair Climbing Direction Ascend and Descend Comments Stair Climbing Comments increase in pain PT-OP-H Neuro Start: 05/26/24 17:13 Freq: Status: Active Protocol: Document 05/27/24 13:50 SAK (Rec: 05/30/24 08:24 SAK Laptop) Sensation Evaluation Gross Sensation Gross Sensation WNL PT-OP-J Posture/Palpation/Skin Start: 05/26/24 17:13 Freq: Status: Active Protocol: Document 05/27/24 13:50 SAK (Rec: 05/27/24 14:40 SAK Laptop) Posture Evaluation Position Standing Head/C-Spine Posture Forward Head T-Spine Posture Increased Kyphosis L-Spine Posture Decreased Lordosis Shoulder Posture (L) Rounded,(R) Rounded,(L) Forward Pelvis Posture Anteriorly Tilted,(R) Iliac Crest Superior Weight Distribution Weight Shifted Right Knee Posture (L) Genu Recurvatum,(R) Genu Recurvatum Ankle/Foot Posture (L) Pronated Foot Arch (L) Low Arch Palpation Assessment Location left knee Palpation Location joint line Palpation Findings Tenderness PT-OP-K Range of Motion Start: 05/26/24 17:13 Freq: Status: Active Protocol: Document 05/27/24 13:50 SAK (Rec: 05/30/24 08:24 SAK Laptop) Lumbar Spine Range of Motion Lumbar Spine Active Comments WNL, some increased pinching right l/s with right sidebending Hip Goniometric Range of Motion Hip gordo Hip ROM WFL Yes Knee Goniometric Range of Motion Knee Left Knee ROM WFL Yes Right Knee ROM WFL Yes Knee ROM Limitations Comments uncomfortable left knee with cross legged sitting PT-OP-L Special Tests Start: 05/26/24 17:13 Freq: Status: Active Protocol: Document 05/27/24 13:50 SAK (Rec: 05/30/24 08:24 [facility] Laptop) Special Tests Hip Special Tests Piriformis Test Results - Donavan Test Results - Straight Leg Raise Test Results - RK Test Results - Knee Special Tests Varus- 0 Degrees Test Results - Valgus- 0 Degrees Test Results - Posterior Draw Test Results - Anterior Draw Test Results - Evens Test Test Results - PT-OP-M Strength Start: 05/26/24 17:13 Freq: Status: Active Protocol: Document 05/27/24 13:50 [facility] (Rec: 05/30/24 08:24 [facility] Laptop) Trunk Strength Trunk Manual Muscle Testing Core Stabilization poor, difficulty activating TrA Hip Strength Hip Manual Muscle Testing Left Flexion (L2) 4- Good- Extension (S1) 4- Good- Abduction 4- Good- Adduction 4- Good- External Rotation 4- Good- Internal Rotation 4- Good- Right Flexion (L2) 4 Good Extension (S1) 4- Good- Abduction 4 Good Adduction 4 Good External Rotation 4 Good Internal Rotation 4- Good- Knee Strength Knee Manual Muscle Testing Left Flexion (S2) 4 Good Extension (L3) 4 Good Right Flexion (S2) 5 Normal Extension (L3) 5 Normal PT-OP-Q Treatments Start: 05/26/24 17:13 Freq: Status: Active Protocol: Document 06/21/24 15:17 [facility] (Rec: 06/21/24 16:27 [facility] Laptop) Cardio Equipment Bicycle (Upright) Duration (Minutes) 5 Resistance 15 Seat Position 6 Other cues for HS engagement Gym Equipment Cable Column (Body Solid) HS curl Details unil, w/ TrA and breathwork; vc for DF Resistance 25 Reps/Time 15x ea, x5 ea w/ eccentric control focus Shuttle Recovery Bilateral Squats Resistance 75 Shuttle Recovery Platform Unstable Reps/Time 10x2 SL squat Resistance 50 Shuttle Recovery Platform Stable,Unstable Reps/Time 10x2 Shuttle Balance chains red Details side to side bal Reps/Duration 2 min Comments mirror for visual feedback next session front/back bal,wt shift stride position Therapeutic Exercises Supine Exercises bridging Supine Exercise Name 1. DL 2. SL (eccentric> concentric) Resistance Lvl 2 Tb above knees Equipment Used TrA monitoring medial to ASIS Reps/Minutes 1. x10 wo and w Lvl 2 Tb 2. 3 x6 ea Comments occasional cues for breath, LE alignment piriformis stretch Side bilateral Reps/Minutes 60 sec X 2 each LE Comments Verbal cues Prone Exercises plank Prone Exercise Name next session Sidelying Exercises side plank Sidelying Exercise Name review next session hip ab Sidelying Exercise Name add ankle weight Standing Exercises single leg lift Standing Exercise Name next session ARTHUR gastroc soleus stretch Side bilateral Reps/Minutes 3 x 30 sec Manual Therapy Treatment Taping left knee Treatment Focus patellar realignment Type of Tape Kinesio Tape Skin Inspection intact Comments y strip base medial, tails stretched superior and inf patella 75% stretch, applied with knee 20 deg flex 2 Y strips: base tib tuberosity with tails stretched med and lateral patella, and base sup patella with tails stretched med and lateral to patella ending inf; 50% stretch applied with knee in flex Self-Care/Home Management Treatment Education Patient Education Body Mechanics,Home Exercise Program,Joint Protection, Posture Other Education assessment footwear; pt's hiking and running high top Altra's, discussed wear pattern and likely contribution to knee pain. PT-OP-T Assessment and Plan Start: 05/26/24 17:13 Freq: Status: Active Protocol: Document 06/21/24 15:17 SAK (Rec: 06/21/24 16:27 SAK Laptop) Physical Therapy Assessment Goals Three Impairment impaired strength and core stabilization Short Term Goal (STG) Patient to be instructed in progressive, individualized strengthening and core stabilization exercises and be issued written handouts STG Duration 06/26/24 Cutter Machine Tender Goal (LTG) Patient will be independent and compliant with HEP and demonstrate improvement in strength to 5/5 and good core stabilization in functional tasks to allow her to work without an increase in pain. Two Impairment postural impairment with asymmetrical positional habits Short Term Goal (STG) Patient to be instructed in neutral posture and body mechanics and do self assessment of habitual positioning and movement including static, dynamic functional movement, and sleep positioning STG Duration 06/26/24 Long-Term Goal (LTG) Patient to demonstrate good understanding of posture and body mechanics and demonstrate improvement in positioning and movement habits statically and dynamically for improved function LTG Duration 07/27/24 One Impairment LEFS 76% Cutter Machine Tender Goal (LTG) Improve LEFS to at least 90% as measure of improved activity tolerance and left LE function LTG Duration 07/27/24 Assessment Summary Assessment Patient requests KT tape today , reports relief of pain with tape. Evaluation of footwear with excess lateral heel and forefoot wear right greater than left. Emphasis weight bearing through entire foot with ex activities today. Physical Therapy Plan Frequency and Duration Frequency of Treatment 2x/Week Duration of treatment (weeks) 8 Plan of Care Start Date 05/27/24 Plan of Care End Date 07/27/24 Therapeutic Interventions Therapeutic Interventions Home Exercise Program,Manual Therapy,Neuromuscular Re- education,Patient/Caregiver Education,Self-Care/Home Management,Soft Tissue Mobilization,Taping, Therapeutic Activities, Therapeutic Exercises Modalities Cold Pack/Ice Massage,Electric Stimulation,Hot Packs, Infrared Therapy,Ultrasound Next Visit Focus/Plan Next Note Type Treatment Note Next Visit Plan Progress LE and core strengthening as tolerated, use of mirror for LE alignment . Assess pelvic alignment and perform manual PRN.Assess running posture.
--- NOTE | 2024-06-23 13:57 | PT-OP ANOTE ---
Spoke with pt re: missed 1:45pm PT appointment. She apologizes and states she got appointments confused because she received an appointment reminder for two appointments last Friday, and thought the one from today was for tomorrow. Reviewed No Show policy and confirmed next appointment Wednesday 06/28 at 2:30pm.
--- NOTE | 2024-06-28 17:44 | PT.OTN ---
Current Diagnoses Other chronic pain (06/28/24) Pain in left knee (06/28/24) Physical Therapy Treatment Note PT-OP-A Visit Information Start: 05/26/24 17:13 Freq: Status: Active Protocol: Document 06/28/24 14:27 SAK (Rec: 06/28/24 15:18 SAK Laptop) Out-Patient Physical Therapy Visit Information Visit Information Visit Type Treatment Note Visit Start Time 13:45 Visit Stop Time 14:33 Visit Number 8 PT-OP-B Current Condition Start: 05/26/24 17:13 Freq: Status: Active Protocol: Document 06/28/24 14:27 SAK (Rec: 06/28/24 15:18 SAK Laptop) Current Condition History of Current Condition Onset Date 6 yrs ago. Current Complaints left low back, buttock, and knee pain History of Current Condition Fell while holding a child, onto left hip, torquing left leg and back resulting in pain . Tried chiropractor, not helpful. Went to PT friend, not helpful. After 2 years, tried PT, not helpful. Back to PT friend, referred to different chiropractor, helpful initially, pain came back. Going to go back to chiropractor. REferred for accupuncture, scheduled in July. Can't sleep, sit, stand , walk, without increase pain. Goes to gym most every day, similar cross fit, walks several miles per day. Denies knee giving way, but reports clicking on stairs. Exercises quads a lot, no hamstrings. 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 Prior Treatments and Tests x-ray left knee: The tibialfemoral and patellofemoral joints are normal in width and alignment without arthritic change. Small effusion noted. Future Testing and Treatments Planned return to physician and consider MRI if PT not helpful PT-OP-C Subjective Start: 05/26/24 17:13 Freq: Status: Active Protocol: Document 06/28/24 14:27 SAK (Rec: 06/28/24 15:18 SAK Laptop) OP-PT Subjective Patient Comments Patient Comments Took tape off Friday, good Friday, pain started increasing Friday. Missed second appt last week, forgot. Tape helped tremendously, doesn't have her own yet. Did leg curls at gym with TB. Likes use of exercise machines in PT. Went to chiropractor last week , worse pinch left hip after session, went away, still feels hips not level. PT-OP-G Mobility & Gait Start: 05/26/24 17:13 Freq: Status: Active Protocol: Document 05/27/24 13:50 SAK (Rec: 05/30/24 08:24 SAK Laptop) OP Gait Assessment Gait Gait Assistance Required: Independent Gait Deviations General Gait Pattern Lateral Trunk Lean Factors Limiting Gait Function Factors Limiting Gait Function Pain Stair Climbing Evaluation Evaluation Level of Assist On Stairs Independent Technique/Endurance Stair Climbing Direction Ascend and Descend Comments Stair Climbing Comments increase in pain PT-OP-H Neuro Start: 05/26/24 17:13 Freq: Status: Active Protocol: Document 05/27/24 13:50 SAK (Rec: 05/30/24 08:24 SAK Laptop) Sensation Evaluation Gross Sensation Gross Sensation WNL PT-OP-J Posture/Palpation/Skin Start: 05/26/24 17:13 Freq: Status: Active Protocol: Document 05/27/24 13:50 SAK (Rec: 05/27/24 14:40 SAK Laptop) Posture Evaluation Position Standing Head/C-Spine Posture Forward Head T-Spine Posture Increased Kyphosis L-Spine Posture Decreased Lordosis Shoulder Posture (L) Rounded,(R) Rounded,(L) Forward Pelvis Posture Anteriorly Tilted,(R) Iliac Crest Superior Weight Distribution Weight Shifted Right Knee Posture (L) Genu Recurvatum,(R) Genu Recurvatum Ankle/Foot Posture (L) Pronated Foot Arch (L) Low Arch Palpation Assessment Location left knee Palpation Location joint line Palpation Findings Tenderness PT-OP-K Range of Motion Start: 05/26/24 17:13 Freq: Status: Active Protocol: Document 05/27/24 13:50 SAK (Rec: 05/30/24 08:24 SAK Laptop) Lumbar Spine Range of Motion Lumbar Spine Active Comments WNL, some increased pinching right l/s with right sidebending Hip Goniometric Range of Motion Hip gordo Hip ROM WFL Yes Knee Goniometric Range of Motion Knee Left Knee ROM WFL Yes Right Knee ROM WFL Yes Knee ROM Limitations Comments uncomfortable left knee with cross legged sitting PT-OP-L Special Tests Start: 05/26/24 17:13 Freq: Status: Active Protocol: Document 05/27/24 13:50 SAK (Rec: 05/30/24 08:24 SAK Laptop) Special Tests Hip Special Tests Piriformis Test Results - Donavan Test Results - Straight Leg Raise Test Results - RK Test Results - Knee Special Tests Varus- 0 Degrees Test Results - Valgus- 0 Degrees Test Results - Posterior Draw Test Results - Anterior Draw Test Results - Evens Test Test Results - PT-OP-M Strength Start: 05/26/24 17:13 Freq: Status: Active Protocol: Document 05/27/24 13:50 SAK (Rec: 05/30/24 08:24 SAK Laptop) Trunk Strength Trunk Manual Muscle Testing Core Stabilization poor, difficulty activating TrA Hip Strength Hip Manual Muscle Testing Left Flexion (L2) 4- Good- Extension (S1) 4- Good- Abduction 4- Good- Adduction 4- Good- External Rotation 4- Good- Internal Rotation 4- Good- Right Flexion (L2) 4 Good Extension (S1) 4- Good- Abduction 4 Good Adduction 4 Good External Rotation 4 Good Internal Rotation 4- Good- Knee Strength Knee Manual Muscle Testing Left Flexion (S2) 4 Good Extension (L3) 4 Good Right Flexion (S2) 5 Normal Extension (L3) 5 Normal PT-OP-Q Treatments Start: 05/26/24 17:13 Freq: Status: Active Protocol: Document 06/28/24 14:27 SAK (Rec: 06/28/24 15:18 SAK Laptop) Cardio Equipment Bicycle (Upright) Duration (Minutes) 5 Resistance 20 Seat Position 6 Other cues for HS engagement Gym Equipment Cable Column (Body Solid) HS curl Details unil, w/ TrA and breathwork; vc for DF Resistance 25 Reps/Time 15x ea, x5 ea w/ eccentric control focus Shuttle Recovery Bilateral Squats Resistance 75 Shuttle Recovery Platform Unstable Reps/Time 10x2 SL squat Resistance 50 Shuttle Recovery Platform Stable,Unstable Reps/Time 10x2 Therapeutic Exercises Supine Exercises clam Equipment Used L3 TB Reps/Minutes 1 min hold x 2 Comments after long axis dist lext LE ball squeeze Reps/Minutes 10x5 Comments after long axis dist left LE bridging Supine Exercise Name SL Equipment Used TrA monitoring medial to ASIS Reps/Minutes 10x Comments cues for hip alignment Sidelying Exercises side plank Sidelying Exercise Name review next session hip ab Sidelying Exercise Name add ankle weight next session Standing Exercises wall squat Equipment Used 0,ball squeeze Reps/Minutes 10x Comments less pain with ball squeeze lift Resistance 20 lbs Reps/Minutes 6x Comments cues for core, glutes, don't overextend single leg lift Reps/Minutes 10x Comments mod verbal and manual cues technique Manual Therapy Treatment Joint Mobilizations left LE Joint hip Direction long axis dist Reps/Duration 3 x 20 Taping left knee Treatment Focus patellar realignment Type of Tape Kinesio Tape Skin Inspection intact Comments y strip base medial, tails stretched superior and inf patella 75% stretch, applied with knee 20 deg flex 2 Y strips: base tib tuberosity with tails stretched med and lateral patella, and base sup patella with tails stretched med and lateral to patella ending inf; 50% stretch applied with knee in flex Self-Care/Home Management Treatment Education Patient Education Body Mechanics,Home Exercise Program,Joint Protection, Posture Other Education assessment footwear; pt's hiking and running high top Altra's, discussed wear pattern and likely contribution to knee pain. PT-OP-T Assessment and Plan Start: 05/26/24 17:13 Freq: Status: Active Protocol: Document 06/28/24 14:27 SAK (Rec: 06/28/24 15:18 SAK Laptop) Physical Therapy Assessment Goals Three Impairment impaired strength and core stabilization Short Term Goal (STG) Patient to be instructed in progressive, individualized strengthening and core stabilization exercises and be issued written handouts 06/28/24: goal met, ongoing STG Duration goal met Care Home Goal (LTG) Patient will be independent and compliant with HEP and demonstrate improvement in strength to 5/5 and good core stabilization in functional tasks to allow her to work without an increase in pain. Two Impairment postural impairment with asymmetrical positional habits Short Term Goal (STG) Patient to be instructed in neutral posture and body mechanics and do self assessment of habitual positioning and movement including static, dynamic functional movement, and sleep positioning 06/28/24: goal met STG Duration goal met Care Home Goal (LTG) Patient to demonstrate good understanding of posture and body mechanics and demonstrate improvement in positioning and movement habits statically and dynamically for improved function LTG Duration 07/27/24 One Impairment LEFS 76% Care Home Goal (LTG) Improve LEFS to at least 90% as measure of improved activity tolerance and left LE function 06/28/24: reporting improved function, decreased pain. Did not fill out. LTG Duration 07/27/24 Assessment Summary Assessment Patient reports significant positive results with use of KT tape. Emphasis with ther ex on neutral LE alignment and correct muscle activation sequencing. L knee pain dec with use of ball squeeze on wall squat. Instructed in sidestepping with TB resistance, cues for slow, controlled movements. Evaluated pt. lift form with cues given for correct form, trial single leg lift, again mod cues required for technique, not given for HEP. Physical Therapy Plan Frequency and Duration Frequency of Treatment 2x/Week Duration of treatment (weeks) 8 Plan of Care Start Date 05/27/24 Plan of Care End Date 07/27/24 Therapeutic Interventions Therapeutic Interventions Home Exercise Program,Manual Therapy,Neuromuscular Re- education,Patient/Caregiver Education,Self-Care/Home Management,Soft Tissue Mobilization,Taping, Therapeutic Activities, Therapeutic Exercises Modalities Cold Pack/Ice Massage,Electric Stimulation,Hot Packs, Infrared Therapy,Ultrasound Next Visit Focus/Plan Next Note Type Treatment Note Next Visit Plan Review single leg lift for form, review wall squat with ball squeeze. Continue to progress LE and core strengthening as tolerated ( patient likes use of machines) use of mirror for LE alignment as able. Trial step ups/downs for form. Assess pelvic alignment and perform manual PRN Assess running posture. Continue KT tape with 75% tension (patient reports best response to higher tension)
--- NOTE | 2024-06-30 17:09 | PT.OTN ---
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 Current Complaints left low back, buttock, and knee pain History of Current Condition Fell while holding a child, onto left hip, torquing left leg and back resulting in pain . Tried chiropractor, not helpful. Went to PT friend, not helpful. After 2 years, tried PT, not helpful. Back to PT friend, referred to different chiropractor, helpful initially, pain came back. Going to go back to chiropractor. REferred for accupuncture, scheduled in July. Can't sleep, sit, stand , walk, without increase pain. Goes to gym most every day, similar cross fit, walks several miles per day. Denies knee giving way, but reports clicking on stairs. Exercises quads a lot, no hamstrings. 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 Prior Treatments and Tests x-ray left knee: The tibialfemoral and patellofemoral joints are normal in width and alignment without arthritic change. Small effusion noted. Future Testing and Treatments Planned return to physician and consider MRI if PT not helpful PT-OP-C Subjective Start: 05/26/24 17:13 Freq: Status: Active Protocol: Document 06/30/24 14:40 NBM (Rec: 06/30/24 17:00 NBM Laptop) OP-PT Subjective Patient Comments Patient Comments Inna reports the tape helps a lot but is coming off already. She doesn't notice her hips move with lift at gym and there is no mirror at gym. She loves the wall sit . She hasn't been to the gym today, Friday she went and then ran for four miles and felt pretty good, then Friday she went for a walk. PT-OP-G Mobility & Gait Start: 05/26/24 17:13 Freq: Status: Active Protocol: Document 05/27/24 13:50 SAK (Rec: 05/30/24 08:24 SAK Laptop) OP Gait Assessment Gait Gait Assistance Required: Independent Gait Deviations General Gait Pattern Lateral Trunk Lean Factors Limiting Gait Function Factors Limiting Gait Function Pain Stair Climbing Evaluation Evaluation Level of Assist On Stairs Independent Technique/Endurance Stair Climbing Direction Ascend and Descend Comments Stair Climbing Comments increase in pain PT-OP-H Neuro Start: 05/26/24 17:13 Freq: Status: Active Protocol: Document 05/27/24 13:50 SAK (Rec: 05/30/24 08:24 SAK Laptop) Sensation Evaluation Gross Sensation Gross Sensation WNL PT-OP-J Posture/Palpation/Skin Start: 05/26/24 17:13 Freq: Status: Active Protocol: Document 05/27/24 13:50 SAK (Rec: 05/27/24 14:40 SAK Laptop) Posture Evaluation Position Standing Head/C-Spine Posture Forward Head T-Spine Posture Increased Kyphosis L-Spine Posture Decreased Lordosis Shoulder Posture (L) Rounded,(R) Rounded,(L) Forward Pelvis Posture Anteriorly Tilted,(R) Iliac Crest Superior Weight Distribution Weight Shifted Right Knee Posture (L) Genu Recurvatum,(R) Genu Recurvatum Ankle/Foot Posture (L) Pronated Foot Arch (L) Low Arch Palpation Assessment Location left knee Palpation Location joint line Palpation Findings Tenderness PT-OP-K Range of Motion Start: 05/26/24 17:13 Freq: Status: Active Protocol: Document 05/27/24 13:50 SAK (Rec: 05/30/24 08:24 SAK Laptop) Lumbar Spine Range of Motion Lumbar Spine Active Comments WNL, some increased pinching right l/s with right sidebending Hip Goniometric Range of Motion Hip gordo Hip ROM WFL Yes Knee Goniometric Range of Motion Knee Left Knee ROM WFL Yes Right Knee ROM WFL Yes Knee ROM Limitations Comments uncomfortable left knee with cross legged sitting PT-OP-L Special Tests Start: 05/26/24 17:13 Freq: Status: Active Protocol: Document 05/27/24 13:50 SAK (Rec: 05/30/24 08:24 SAK Laptop) Special Tests Hip Special Tests Piriformis Test Results - Donavan Test Results - Straight Leg Raise Test Results - RK Test Results - Knee Special Tests Varus- 0 Degrees Test Results - Valgus- 0 Degrees Test Results - Posterior Draw Test Results - Anterior Draw Test Results - Evens Test Test Results - PT-OP-M Strength Start: 05/26/24 17:13 Freq: Status: Active Protocol: Document 05/27/24 13:50 SAK (Rec: 05/30/24 08:24 SAK Laptop) Trunk Strength Trunk Manual Muscle Testing Core Stabilization poor, difficulty activating TrA Hip Strength Hip Manual Muscle Testing Left Flexion (L2) 4- Good- Extension (S1) 4- Good- Abduction 4- Good- Adduction 4- Good- External Rotation 4- Good- Internal Rotation 4- Good- Right Flexion (L2) 4 Good Extension (S1) 4- Good- Abduction 4 Good Adduction 4 Good External Rotation 4 Good Internal Rotation 4- Good- Knee Strength Knee Manual Muscle Testing Left Flexion (S2) 4 Good Extension (L3) 4 Good Right Flexion (S2) 5 Normal Extension (L3) 5 Normal PT-OP-Q Treatments Start: 05/26/24 17:13 Freq: Status: Active Protocol: Document 06/30/24 14:40 NBM (Rec: 06/30/24 17:00 NBM Laptop) Gym Equipment Cable Column (Body Solid) HS curl Details unil, w/ TrA and breathwork; vc for DF, eccentric control Resistance 25 Reps/Time 4x5 rep L, 2x10 reps R Therapeutic Exercises Supine Exercises piriformis stretch Supine Exercise Name verbal review Side bilateral Reps/Minutes 60 sec X 2 each LE Comments Verbal cues Prone Exercises plank Equipment Used yoga mat Reps/Minutes 30 sec (to fatigue) Comments cues for chin tuck, TrA, scap setting, neutral spine Standing Exercises squat Standing Exercise Name maintaining neutral spine and hip hinge Equipment Used i/s in dowel at head/spine for biofeedback Reps/Minutes x10 Comments w/ TrA and breath wall squat Equipment Used orange ball squeeze Reps/Minutes 10x max hold Comments cue not to hold breath lift Resistance 20 lbs Reps/Minutes x10 Comments cues for core, glutes, don't overextend, breath, scap single leg lift Side bilateral Equipment Used dowel for biofeedback Reps/Minutes 10# x5> stool for smaller range; x10 ea w/ dowel Comments mod verbal and manual cues technique Manual Therapy Treatment Consent Patient gave verbal consent for manual Yes treatment Taping left knee Treatment Focus patellar realignment Type of Tape Kinesio Tape Skin Inspection intact Comments y strip base medial, tails stretched superior and inf patella 75% stretch, applied with knee 20 deg flex 2 Y strips: base tib tuberosity with tails stretched med and lateral patella, and base sup patella with tails stretched med and lateral to patella ending inf; 75% stretch applied with knee in flex Self-Care/Home Management Treatment Education Patient Education Body Mechanics,Home Exercise Program,Joint Protection Other Education -Pt admits to minimal stretching; strengthening and running focus. Edu to pt re: interrelationship of stretching and strengthening with goal of strength throughout functional range. -Pt hasn't yet used foam roller and is encouraged to do so as previously instructed. -HEP: Pt encouraged to perform single leg lift without resistance, with focus on form using dowel for biofeedback. Advised to start with stool target for smaller range and low weight, then progress to without stool, then increase weight maintaining form throughout. PT-OP-T Assessment and Plan Start: 05/26/24 17:13 Freq: Status: Active Protocol: Document 06/30/24 14:40 NBM (Rec: 06/30/24 17:00 NBM Laptop) Physical Therapy Assessment Goals Three Impairment impaired strength and core stabilization Short Term Goal (STG) Patient to be instructed in progressive, individualized strengthening and core stabilization exercises and be issued written handouts 06/28/24: goal met, ongoing STG Duration goal met Vehicle Painter Goal (LTG) Patient will be independent and compliant with HEP and demonstrate improvement in strength to 5/5 and good core stabilization in functional tasks to allow her to work without an increase in pain. Two Impairment postural impairment with asymmetrical positional habits Short Term Goal (STG) Patient to be instructed in neutral posture and body mechanics and do self assessment of habitual positioning and movement including static, dynamic functional movement, and sleep positioning 06/28/24: goal met STG Duration goal met [facility] Goal (LTG) Patient to demonstrate good understanding of posture and body mechanics and demonstrate improvement in positioning and movement habits statically and dynamically for improved function LTG Duration 07/27/24 One Impairment LEFS 76% Vehicle Painter Goal (LTG) Improve LEFS to at least 90% as measure of improved activity tolerance and left LE function 06/28/24: reporting improved function, decreased pain. Did not fill out. LTG Duration 07/27/24 Assessment Summary Assessment Inna requires consistent cues for breathwork and Transverse abdominis m. activation but improves self- awareness by end of session. She demos single leg lift with 10# with excessive trunk and pelvic rotation in opposite directions; significant time spent training pt for mechanics with success using dowel for biofeedback and education regarding appropriate HEP progression, and education for interrelationship of stretching and strengthening with encouragement to spend more time stretching. KT tape reapplied to L knee. Physical Therapy Plan Frequency and Duration Frequency of Treatment 2x/Week Duration of treatment (weeks) 8 Plan of Care Start Date 05/27/24 Plan of Care End Date 07/27/24 Therapeutic Interventions Therapeutic Interventions Home Exercise Program,Manual Therapy,Neuromuscular Re- education,Patient/Caregiver Education,Self-Care/Home Management,Soft Tissue Mobilization,Taping, Therapeutic Activities, Therapeutic Exercises Modalities Cold Pack/Ice Massage,Electric Stimulation,Hot Packs, Infrared Therapy,Ultrasound Next Visit Focus/Plan Next Note Type Treatment Note Next Visit Plan Review single leg lift for form, review wall squat with ball squeeze. Continue to progress LE and core strengthening as tolerated ( patient likes use of machines) use of mirror for LE alignment as able. Trial step ups/downs for form. Assess pelvic alignment and perform manual PRN Assess running posture. Continue KT tape with 75% tension (patient reports best response to higher tension)
--- NOTE | 2024-07-06 16:12 | PT.OTN ---
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 Current Complaints left low back, buttock, and knee pain History of Current Condition Fell while holding a child, onto left hip, torquing left leg and back resulting in pain . Tried chiropractor, not helpful. Went to PT friend, not helpful. After 2 years, tried PT, not helpful. Back to PT friend, referred to different chiropractor, helpful initially, pain came back. Going to go back to chiropractor. REferred for accupuncture, scheduled in July. Can't sleep, sit, stand , walk, without increase pain. Goes to gym most every day, similar cross fit, walks several miles per day. Denies knee giving way, but reports clicking on stairs. Exercises quads a lot, no hamstrings. 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 Prior Treatments and Tests x-ray left knee: The tibialfemoral and patellofemoral joints are normal in width and alignment without arthritic change. Small effusion noted. Future Testing and Treatments Planned return to physician and consider MRI if PT not helpful PT-OP-C Subjective Start: 05/26/24 17:13 Freq: Status: Active Protocol: Document 07/06/24 14:37 NBM (Rec: 07/06/24 16:11 NBM Laptop) OP-PT Subjective Patient Comments Patient Comments Inna reports she felt pinching in her L hip and tightness in side the day after her last PT appointment; she noticed the pain and did walk. Her friend showed her some hip and leg stretches which she did the next day ( demos hamstring and adductor stretch). She kept her KT tape on until Friday, then applied her own at home. She has tension in the back of the knee right now. She drinks water after she gets thirsty and thinks she can go a long time without water because she doesn't feel thirsty until after her long walks. She was a little sore after last session but liked it. She tried using stick at home and at gym with help with alignment from kid at gym. She laid on foam roller twice. PT-OP-G Mobility & Gait Start: 05/26/24 17:13 Freq: Status: Active Protocol: Document 05/27/24 13:50 SAK (Rec: 05/30/24 08:24 SAK Laptop) OP Gait Assessment Gait Gait Assistance Required: Independent Gait Deviations General Gait Pattern Lateral Trunk Lean Factors Limiting Gait Function Factors Limiting Gait Function Pain Stair Climbing Evaluation Evaluation Level of Assist On Stairs Independent Technique/Endurance Stair Climbing Direction Ascend and Descend Comments Stair Climbing Comments increase in pain PT-OP-H Neuro Start: 05/26/24 17:13 Freq: Status: Active Protocol: Document 05/27/24 13:50 SAK (Rec: 05/30/24 08:24 SAK Laptop) Sensation Evaluation Gross Sensation Gross Sensation WNL PT-OP-J Posture/Palpation/Skin Start: 05/26/24 17:13 Freq: Status: Active Protocol: Document 05/27/24 13:50 SAK (Rec: 05/27/24 14:40 SAK Laptop) Posture Evaluation Position Standing Head/C-Spine Posture Forward Head T-Spine Posture Increased Kyphosis L-Spine Posture Decreased Lordosis Shoulder Posture (L) Rounded,(R) Rounded,(L) Forward Pelvis Posture Anteriorly Tilted,(R) Iliac Crest Superior Weight Distribution Weight Shifted Right Knee Posture (L) Genu Recurvatum,(R) Genu Recurvatum Ankle/Foot Posture (L) Pronated Foot Arch (L) Low Arch Palpation Assessment Location left knee Palpation Location joint line Palpation Findings Tenderness PT-OP-K Range of Motion Start: 05/26/24 17:13 Freq: Status: Active Protocol: Document 05/27/24 13:50 SAK (Rec: 05/30/24 08:24 SAK Laptop) Lumbar Spine Range of Motion Lumbar Spine Active Comments WNL, some increased pinching right l/s with right sidebending Hip Goniometric Range of Motion Hip gordo Hip ROM WFL Yes Knee Goniometric Range of Motion Knee Left Knee ROM WFL Yes Right Knee ROM WFL Yes Knee ROM Limitations Comments uncomfortable left knee with cross legged sitting PT-OP-L Special Tests Start: 05/26/24 17:13 Freq: Status: Active Protocol: Document 05/27/24 13:50 SAK (Rec: 05/30/24 08:24 SAK Laptop) Special Tests Hip Special Tests Piriformis Test Results - Donavan Test Results - Straight Leg Raise Test Results - RK Test Results - Knee Special Tests Varus- 0 Degrees Test Results - Valgus- 0 Degrees Test Results - Posterior Draw Test Results - Anterior Draw Test Results - Evens Test Test Results - PT-OP-M Strength Start: 05/26/24 17:13 Freq: Status: Active Protocol: Document 05/27/24 13:50 SAK (Rec: 05/30/24 08:24 SAK Laptop) Trunk Strength Trunk Manual Muscle Testing Core Stabilization poor, difficulty activating TrA Hip Strength Hip Manual Muscle Testing Left Flexion (L2) 4- Good- Extension (S1) 4- Good- Abduction 4- Good- Adduction 4- Good- External Rotation 4- Good- Internal Rotation 4- Good- Right Flexion (L2) 4 Good Extension (S1) 4- Good- Abduction 4 Good Adduction 4 Good External Rotation 4 Good Internal Rotation 4- Good- Knee Strength Knee Manual Muscle Testing Left Flexion (S2) 4 Good Extension (L3) 4 Good Right Flexion (S2) 5 Normal Extension (L3) 5 Normal PT-OP-Q Treatments Start: 05/26/24 17:13 Freq: Status: Active Protocol: Document 07/06/24 14:37 NBM (Rec: 07/06/24 16:11 NBM Laptop) Cardio Equipment Bicycle (Upright) Duration (Minutes) 5 Resistance 20 Seat Position 6 Other cues for HS engagement Gym Equipment Cable Column (Body Solid) HS curl Details unil, w/ TrA and breathwork; vc eccentric control Resistance 25 Reps/Time 2x10 reps ea Therapeutic Exercises Supine Exercises piriformis stretch Supine Exercise Name 1. Figure 4 2. Knee to opp radha Side bilateral Reps/Minutes 60 sec X 2 each LE Comments Verbal cues Prone Exercises pigeon stretch Prone Exercise Name w/ fwd/lat flexion Side bilateral Reps/Minutes 30s ea Comments vc for breath child's pose Prone Exercise Name fwd/lat Reps/Minutes 30s ea Comments vc for breath Sidelying Exercises open book Sidelying Exercise Name added to HEP Side bilateral Equipment Used yoga mat, pillow for cervical alignment Reps/Minutes 10 ea w/ breathwork followed by stretch hold Comments cues for scapular setting, head follows hand Standing Exercises QL Doorway stretch Standing Exercise Name verbal review Side bilateral Reps/Minutes 30s ea Comments positive feedback response squat Standing Exercise Name maintaining neutral spine and hip hinge Equipment Used /c dowel at head/spine for biofeedback Reps/Minutes x10 Comments w/ TrA and breath single leg lift Standing Exercise Name 1. w/ dowel 2. stool for deeper range Side bilateral Equipment Used dowel for biofeedback Reps/Minutes x10 ea Comments mod verbal and manual cues technique, LLE stance control improves w/ reps Self-Care/Home Management Treatment Education Patient Education Body Mechanics,Home Exercise Program,Pain Management Other Education -review pt's personal HEP for stretches for walks: standing HS stretch w/ fwd flexion, adductor stretch (side lunge). -Pt i/s in stretches for pinching feeling: Piriformis: Figure 4, Knee to opp shoulder in seated and supine; prone pigeon fwd/lat; Child's pose fwd/lat. Verbal review QL doorway stretch. Added to HEP: Open Book stretch. PT-OP-T Assessment and Plan Start: 05/26/24 17:13 Freq: Status: Active Protocol: Document 07/06/24 14:37 NBM (Rec: 07/06/24 16:11 NBM Laptop) Physical Therapy Assessment Goals Three Impairment impaired strength and core stabilization Short Term Goal (STG) Patient to be instructed in progressive, individualized strengthening and core stabilization exercises and be issued written handouts 06/28/24: goal met, ongoing STG Duration goal met Reception Centre Manager Goal (LTG) Patient will be independent and compliant with HEP and demonstrate improvement in strength to 5/5 and good core stabilization in functional tasks to allow her to work without an increase in pain. Two Impairment postural impairment with asymmetrical positional habits Short Term Goal (STG) Patient to be instructed in neutral posture and body mechanics and do self assessment of habitual positioning and movement including static, dynamic functional movement, and sleep positioning 06/28/24: goal met STG Duration goal met Skilled Nursing Goal (LTG) Patient to demonstrate good understanding of posture and body mechanics and demonstrate improvement in positioning and movement habits statically and dynamically for improved function LTG Duration 07/27/24 One Impairment LEFS 76% Skilled Nursing Goal (LTG) Improve LEFS to at least 90% as measure of improved activity tolerance and left LE function 06/28/24: reporting improved function, decreased pain. Did not fill out. LTG Duration 07/27/24 Assessment Summary Assessment Pt presents with tension in L lower extremity posterior to L knee which resolves by end of session; I think stretching helped it. Treatment focus on LE strengthening and stretching HEP. Inna is challenged w/ eccentric control with 20# unilateral hamstring curls. She demos much-improved form without cues for neutral foot positioning or gastrocnemius compensation, and improved LE strength as she is able to perform 2 x10 reps on L leg instead of 4 x5 as with session. Spinal alignment w / single leg lift improves w/ postural cues for chin tuck, hand placement on dowel, and tactile cues for neutral pelvis, and pt progresses to deeper range using stool as visual target. Significant time spent instructing pt in stretches to address pinching in L hip; added to HEP: Open Book stretch and Piriformis m. knee to opposite shoulder. Physical Therapy Plan Frequency and Duration Frequency of Treatment 2x/Week Duration of treatment (weeks) 8 Plan of Care Start Date 05/27/24 Plan of Care End Date 07/27/24 Therapeutic Interventions Therapeutic Interventions Home Exercise Program,Manual Therapy,Neuromuscular Re- education,Patient/Caregiver Education,Self-Care/Home Management,Soft Tissue Mobilization,Taping, Therapeutic Activities, Therapeutic Exercises Modalities Cold Pack/Ice Massage,Electric Stimulation,Hot Packs, Infrared Therapy,Ultrasound Next Visit Focus/Plan Next Note Type Treatment Note Next Visit Plan Review/Progress single leg lift for form, review wall squat with ball squeeze. Continue to progress LE and core strengthening as tolerated (patient likes use of machines) use of mirror for LE alignment as able. Trial step ups/downs for form. Assess pelvic alignment and perform manual PRN Assess running posture. Continue KT tape with 75% tension (patient reports best response to higher tension)
--- NOTE | 2024-07-08 16:03 | PT.OTN ---
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 Current Complaints left low back, buttock, and knee pain History of Current Condition Fell while holding a child, onto left hip, torquing left leg and back resulting in pain . Tried chiropractor, not helpful. Went to PT friend, not helpful. After 2 years, tried PT, not helpful. Back to PT friend, referred to different chiropractor, helpful initially, pain came back. Going to go back to chiropractor. REferred for accupuncture, scheduled in July. Can't sleep, sit, stand , walk, without increase pain. Goes to gym most every day, similar cross fit, walks several miles per day. Denies knee giving way, but reports clicking on stairs. Exercises quads a lot, no hamstrings. 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 Prior Treatments and Tests x-ray left knee: The tibialfemoral and patellofemoral joints are normal in width and alignment without arthritic change. Small effusion noted. Future Testing and Treatments Planned return to physician and consider MRI if PT not helpful PT-OP-C Subjective Start: 05/26/24 17:13 Freq: Status: Active Protocol: Document 07/08/24 14:20 KW (Rec: 07/08/24 16:02 KW Laptop) OP-PT Subjective Patient Comments Patient Comments ran/walked 10 miles, mild discomfort afterwards that resolved by next day. PT-OP-G Mobility & Gait Start: 05/26/24 17:13 Freq: Status: Active Protocol: Document 05/27/24 13:50 SAK (Rec: 05/30/24 08:24 SAK Laptop) OP Gait Assessment Gait Gait Assistance Required: Independent Gait Deviations General Gait Pattern Lateral Trunk Lean Factors Limiting Gait Function Factors Limiting Gait Function Pain Stair Climbing Evaluation Evaluation Level of Assist On Stairs Independent Technique/Endurance Stair Climbing Direction Ascend and Descend Comments Stair Climbing Comments increase in pain PT-OP-H Neuro Start: 05/26/24 17:13 Freq: Status: Active Protocol: Document 05/27/24 13:50 SAK (Rec: 05/30/24 08:24 SAK Laptop) Sensation Evaluation Gross Sensation Gross Sensation WNL PT-OP-J Posture/Palpation/Skin Start: 05/26/24 17:13 Freq: Status: Active Protocol: Document 05/27/24 13:50 SAK (Rec: 05/27/24 14:40 SAK Laptop) Posture Evaluation Position Standing Head/C-Spine Posture Forward Head T-Spine Posture Increased Kyphosis L-Spine Posture Decreased Lordosis Shoulder Posture (L) Rounded,(R) Rounded,(L) Forward Pelvis Posture Anteriorly Tilted,(R) Iliac Crest Superior Weight Distribution Weight Shifted Right Knee Posture (L) Genu Recurvatum,(R) Genu Recurvatum Ankle/Foot Posture (L) Pronated Foot Arch (L) Low Arch Palpation Assessment Location left knee Palpation Location joint line Palpation Findings Tenderness PT-OP-K Range of Motion Start: 05/26/24 17:13 Freq: Status: Active Protocol: Document 05/27/24 13:50 SAK (Rec: 05/30/24 08:24 SAK Laptop) Lumbar Spine Range of Motion Lumbar Spine Active Comments WNL, some increased pinching right l/s with right sidebending Hip Goniometric Range of Motion Hip gordo Hip ROM WFL Yes Knee Goniometric Range of Motion Knee Left Knee ROM WFL Yes Right Knee ROM WFL Yes Knee ROM Limitations Comments uncomfortable left knee with cross legged sitting PT-OP-L Special Tests Start: 05/26/24 17:13 Freq: Status: Active Protocol: Document 05/27/24 13:50 SAK (Rec: 05/30/24 08:24 SAK Laptop) Special Tests Hip Special Tests Piriformis Test Results - Donavan Test Results - Straight Leg Raise Test Results - RK Test Results - Knee Special Tests Varus- 0 Degrees Test Results - Valgus- 0 Degrees Test Results - Posterior Draw Test Results - Anterior Draw Test Results - Evens Test Test Results - PT-OP-M Strength Start: 05/26/24 17:13 Freq: Status: Active Protocol: Document 05/27/24 13:50 SAK (Rec: 05/30/24 08:24 SAK Laptop) Trunk Strength Trunk Manual Muscle Testing Core Stabilization poor, difficulty activating TrA Hip Strength Hip Manual Muscle Testing Left Flexion (L2) 4- Good- Extension (S1) 4- Good- Abduction 4- Good- Adduction 4- Good- External Rotation 4- Good- Internal Rotation 4- Good- Right Flexion (L2) 4 Good Extension (S1) 4- Good- Abduction 4 Good Adduction 4 Good External Rotation 4 Good Internal Rotation 4- Good- Knee Strength Knee Manual Muscle Testing Left Flexion (S2) 4 Good Extension (L3) 4 Good Right Flexion (S2) 5 Normal Extension (L3) 5 Normal PT-OP-Q Treatments Start: 05/26/24 17:13 Freq: Status: Active Protocol: Document 07/08/24 14:20 KW (Rec: 07/08/24 16:02 KW Laptop) Cardio Equipment Bicycle (Upright) Duration (Minutes) 5 Resistance 20 Seat Position 6 Other cues for HS engagement Therapeutic Exercises Supine Exercises clam Equipment Used L3 TB Reps/Minutes 1 min hold x 2 Comments after long axis dist lext LE ball squeeze Reps/Minutes 10x5 Comments after long axis dist left LE supine hamstring bridge Supine Exercise Name supine hamstring bridge with foam roller walk outs Reps/Minutes 10 bridging Supine Exercise Name SL Equipment Used TrA monitoring medial to ASIS Reps/Minutes 10x Comments cues for hip alignment deep neck flexor head lift Supine Exercise Name HEP Reps/Minutes X 5 for 7 sec holds Comments increased verbal cues for chin tuck and lift without ex neck flexion piriformis stretch Supine Exercise Name 1. Figure 4 2. Knee to opp radha Side bilateral Reps/Minutes 60 sec X 2 each LE Comments Verbal cues 90/90 core isometric Supine Exercise Name straight and crossed Reps/Minutes 5x5 Prone Exercises pigeon stretch Prone Exercise Name w/ fwd/lat flexion Side bilateral Reps/Minutes 30s ea Comments vc for breath child's pose Prone Exercise Name fwd/lat Reps/Minutes 30s ea Comments vc for breath plank Equipment Used yoga mat Reps/Minutes 30 sec (to fatigue) Comments cues for chin tuck, TrA, scap setting, neutral spine Sidelying Exercises open book Side bilateral Equipment Used yoga mat, pillow for cervical alignment Reps/Minutes 10 ea w/ breathwork followed by stretch hold Comments cues for scapular setting, head follows hand Standing Exercises QL Doorway stretch Standing Exercise Name verbal review Side bilateral Reps/Minutes 30s ea Comments positive feedback response squat Standing Exercise Name maintaining neutral spine and hip hinge Equipment Used /c dowel at head/spine for biofeedback Reps/Minutes x10 Comments w/ TrA and breath, progressed to single leg, opposite toe touch wall squat Equipment Used orange ball squeeze Reps/Minutes 10x max hold Comments cue not to hold breath lift Resistance 20 lbs Reps/Minutes x10 Comments cues for core, glutes, don't overextend, breath, scap single leg lift Standing Exercise Name 1. w/ dowel 2. stool for deeper range Side bilateral Equipment Used dowel for biofeedback Reps/Minutes x10 ea Comments mod verbal and manual cues technique, LLE stance control improves w/ reps ARTHUR gastroc soleus stretch Side bilateral Reps/Minutes 3 x 30 sec bird dog Standing Exercise Name HEP ( in counter plank position) UE/LEs>LE focus only >UE/LEs Side bilateral Equipment Used treadmill rail Reps/Minutes x10-15 ea w/ TrA and breath Comments verbal/tactile cues for Lumb hyperextension & excessive hip rot L>R stance toe raises Reps/Minutes 10x Other Exercises foam roller B LE Other Exercise Name seated on foam roller, rk position, rolling out posterior hip PT-OP-T Assessment and Plan Start: 05/26/24 17:13 Freq: Status: Active Protocol: Document 07/08/24 14:20 KW (Rec: 07/08/24 16:02 KW Laptop) Physical Therapy Assessment Goals Three Impairment impaired strength and core stabilization Short Term Goal (STG) Patient to be instructed in progressive, individualized strengthening and core stabilization exercises and be issued written handouts 06/28/24: goal met, ongoing STG Duration goal met Residential Goal (LTG) Patient will be independent and compliant with HEP and demonstrate improvement in strength to 5/5 and good core stabilization in functional tasks to allow her to work without an increase in pain. Two Impairment postural impairment with asymmetrical positional habits Short Term Goal (STG) Patient to be instructed in neutral posture and body mechanics and do self assessment of habitual positioning and movement including static, dynamic functional movement, and sleep positioning 06/28/24: goal met STG Duration goal met Residential Goal (LTG) Patient to demonstrate good understanding of posture and body mechanics and demonstrate improvement in positioning and movement habits statically and dynamically for improved function LTG Duration 07/27/24 One Impairment LEFS 76% Art Handler Goal (LTG) Improve LEFS to at least 90% as measure of improved activity tolerance and left LE function 06/28/24: reporting improved function, decreased pain. Did not fill out. LTG Duration 07/27/24 Assessment Summary Assessment much improved eccentric lowering thru lower chain after opening up posterior hip mobility will complete new POC next visit in order to cont with PT as progressing well to meet STG and LTGs Physical Therapy Plan Frequency and Duration Frequency of Treatment 2x/Week Duration of treatment (weeks) 8 Plan of Care Start Date 05/27/24 Plan of Care End Date 07/27/24 Therapeutic Interventions Therapeutic Interventions Home Exercise Program,Manual Therapy,Neuromuscular Re- education,Patient/Caregiver Education,Self-Care/Home Management,Soft Tissue Mobilization,Taping, Therapeutic Activities, Therapeutic Exercises Modalities Cold Pack/Ice Massage,Electric Stimulation,Hot Packs, Infrared Therapy,Ultrasound Next Visit Focus/Plan Next Note Type Treatment Note Next Visit Plan focus on Eccentric loading with strengthening Review/Progress single leg lift for form, review wall squat with ball squeeze. Continue to progress LE and core strengthening as tolerated (patient likes use of machines) use of mirror for LE alignment as able. Trial step ups/downs for form. Assess pelvic alignment and perform manual PRN Assess running posture. Continue KT tape with 75% tension (patient reports best response to higher tension)
--- NOTE | 2024-07-14 17:55 | PT.OTN ---
Current Diagnoses Other chronic pain (07/14/24) Pain in left knee (07/14/24) Physical Therapy Treatment Note PT-OP-A Visit Information Start: 05/26/24 17:13 Freq: Status: Active Protocol: Document 07/14/24 17:46 KW (Rec: 07/14/24 17:55 KW Laptop) Out-Patient Physical Therapy Visit Information Visit Information Visit Type Progress Note Visit Start Time 16:00 Visit Stop Time 16:45 Visit Number 12 PT-OP-B Current Condition Start: 05/26/24 17:13 Freq: Status: Active Protocol: Document 06/28/24 14:27 SAK (Rec: 06/28/24 15:18 SAK Laptop) Current Condition History of Current Condition Onset Date 6 yrs ago. Current Complaints left low back, buttock, and knee pain History of Current Fell while holding a child, onto left hip, torquing Condition left leg and back resulting in pain. Tried chiropractor , not helpful. Went to PT friend, not helpful. After 2 years, tried PT, not helpful. Back to PT friend, referred to different chiropractor, helpful initially, pain came back. Going to go back to chiropractor. REferred for accupuncture, scheduled in July. Can't sleep, sit, stand, walk, without increase pain. Goes to gym most every day, similar cross fit, walks several miles per day. Denies knee giving way, but reports clicking on stairs. Exercises quads a lot, no hamstrings. 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 Prior Treatments and x-ray left knee: The tibialfemoral and patellofemoral Tests joints are normal in width and alignment without arthritic change. Small effusion noted. Future Testing and return to physician and consider MRI if PT not helpful Treatments Planned PT-OP-C Subjective Start: 05/26/24 17:13 Freq: Status: Active Protocol: Document 07/14/24 17:46 KW (Rec: 07/14/24 17:55 KW Laptop) OP-PT Subjective Patient Comments Patient Comments has up coming acupuncture visits for L knee. Continues on her 10 mile walk/jog on trails, takes her about 3 hrs to complete. Patient Questionnaires Lower Extremity Functional Scale LEFS Score 78 OP-PT Pain Assessment Pain Assessment Grid Paper Pain Yes Assessment Grid Completed Location Left Pain Location low back, buttock, hip, knee Details Intensity 4 Scale Used Numeric (0 - 10) Description Aching,Burning,Pressure,Radiating,Stabbing,Tender, Tightness Frequency Frequent Pain Aggravating ADL's,Activity,Exercise,Standing,Sitting Factors Other Pain sleeping Aggravating Factors Pain Alleviating None Factors PT-OP-G Mobility & Gait Start: 05/26/24 17:13 Freq: Status: Active Protocol: Document 05/27/24 13:50 SAK (Rec: 05/30/24 08:24 SAK Laptop) OP Gait Assessment Gait Gait Assistance Independent Required: Gait Deviations General Gait Pattern Lateral Trunk Lean Factors Limiting Gait Function Factors Limiting Pain Gait Function Stair Climbing Evaluation Evaluation Level of Assist On Independent Stairs Technique/Endurance Stair Climbing Ascend and Descend Direction Comments Stair Climbing increase in pain Comments PT-OP-H Neuro Start: 05/26/24 17:13 Freq: Status: Active Protocol: Document 05/27/24 13:50 SAK (Rec: 05/30/24 08:24 SAK Laptop) Sensation Evaluation Gross Sensation Gross Sensation WNL PT-OP-J Posture/Palpation/Skin Start: 05/26/24 17:13 Freq: Status: Active Protocol: Document 07/14/24 17:46 KW (Rec: 07/14/24 17:55 KW Laptop) Posture Evaluation Position Standing Head/C-Spine Posture Forward Head T-Spine Posture Increased Kyphosis L-Spine Posture Decreased Lordosis Shoulder Posture (L) Rounded,(R) Rounded,(L) Forward Pelvis Posture Anteriorly Tilted,(R) Iliac Crest Superior Weight Distribution Weight Shifted Right Knee Posture (L) Genu Recurvatum,(R) Genu Recurvatum Ankle/Foot Posture (L) Pronated Foot Arch (L) Low Arch Comments Posture Comments improving genu recurvatum, increased subtalar neutral, improved alignment of pelvis toward neutral Palpation Assessment Location left knee Palpation Location joint line Palpation Findings Tenderness Palpation Details significant trigger point L rectus femoris and vastus lateralis PT-OP-K Range of Motion Start: 05/26/24 17:13 Freq: Status: Active Protocol: Document 07/14/24 17:46 KW (Rec: 07/14/24 17:55 KW Laptop) Knee Goniometric Range of Motion Knee Left Knee ROM WFL Yes Comments prone knee flexion 110 pre treatment, 120 post contract relax and soft tissue work to rectus femoris Right Knee ROM WFL Yes Knee ROM Limitations Comments uncomfortable left knee with cross legged sitting PT-OP-L Special Tests Start: 05/26/24 17:13 Freq: Status: Active Protocol: Document 07/14/24 17:46 KW (Rec: 07/14/24 17:55 KW Laptop) Special Tests Knee Special Tests Varus- 0 Degrees Test Results - Valgus- 0 Degrees Test Results - Posterior Draw Test Results - Anterior Draw Test Results - Evens Test Test Results - PT-OP-M Strength Start: 05/26/24 17:13 Freq: Status: Active Protocol: Document 07/14/24 17:46 KW (Rec: 07/14/24 17:55 KW Laptop) Hip Strength Hip Manual Muscle Testing Left Flexion (L2) 4 Good Extension (S1) 4 Good Abduction 4 Good Adduction 4 Good External Rotation 4 Good Internal Rotation 4 Good Right Flexion (L2) 4 Good Extension (S1) 4 Good Abduction 4 Good Adduction 4 Good External Rotation 4 Good Internal Rotation 4 Good PT-OP-Q Treatments Start: 05/26/24 17:13 Freq: Status: Active Protocol: Document 07/14/24 17:46 KW (Rec: 07/14/24 17:55 KW Laptop) Cardio Equipment Bicycle (Upright) Duration (Minutes) 5 Resistance 20 Seat Position 6 Other cues for HS engagement Therapeutic Exercises Supine Exercises clam Equipment Used L3 TB Reps/Minutes 1 min hold x 2 Comments after long axis dist lext LE ball squeeze Reps/Minutes 10x5 Comments after long axis dist left LE supine hamstring bridge Supine Exercise Name supine hamstring bridge with foam roller walk outs Reps/Minutes 10 bridging Supine Exercise Name SL Equipment Used TrA monitoring medial to ASIS Reps/Minutes 10x Comments cues for hip alignment deep neck flexor head lift Supine Exercise Name HEP Reps/Minutes X 5 for 7 sec holds Comments increased verbal cues for chin tuck and lift without ex neck flexion piriformis stretch Supine Exercise Name 1. Figure 4 2. Knee to opp radha Side bilateral Reps/Minutes 60 sec X 2 each LE Comments Verbal cues Prone Exercises pigeon stretch Prone Exercise Name w/ fwd/lat flexion Side bilateral Reps/Minutes 30s ea Comments vc for breath child's pose Prone Exercise Name fwd/lat Reps/Minutes 30s ea Comments vc for breath plank Equipment Used yoga mat Reps/Minutes 30 sec (to fatigue) Comments cues for chin tuck, TrA, scap setting, neutral spine Sidelying Exercises open book Side bilateral Equipment Used yoga mat, pillow for cervical alignment Reps/Minutes 10 ea w/ breathwork followed by stretch hold Comments cues for scapular setting, head follows hand Standing Exercises single leg lift Standing Exercise 1. w/ dowel 2. stool for deeper range Name Side bilateral Equipment Used dowel for biofeedback Reps/Minutes x10 ea Comments mod verbal and manual cues technique, LLE stance control improves w/ reps ARTHUR gastroc soleus stretch Side bilateral Reps/Minutes 3 x 30 sec bird dog Standing Exercise HEP ( in counter plank position) UE/LEs>LE focus only> Name UE/LEs Side bilateral Equipment Used treadmill rail Reps/Minutes x10-15 ea w/ TrA and breath Comments verbal/tactile cues for Lumb hyperextension & excessive hip rot L>R stance Manual Therapy Treatment Consent Patient gave verbal Yes consent for manual treatment Soft Tissue Mobilization bilateral hips Body Location glute/pirifornis area Mobilization Type Cross-Friction,Rolling Intensity/Depth Moderate Body Position Sidelying Comments focus on rectus femoris followed by prone contract relax PT-OP-T Assessment and Plan Start: 05/26/24 17:13 Freq: Status: Active Protocol: Document 07/14/24 17:46 KW (Rec: 07/14/24 17:55 KW Laptop) Physical Therapy Assessment Goals Three Impairment impaired strength and core stabilization Short Term Goal (STG Patient to be instructed in progressive, individualized ) strengthening and core stabilization exercises and be issued written handouts 06/28/24: goal met, ongoing STG Duration goal met Residential Goal (LTG) Patient will be independent and compliant with HEP and demonstrate improvement in strength to 5/5 and good core stabilization in functional tasks to allow her to work without an increase in pain. - ongoing, improving 4/5 Two Impairment postural impairment with asymmetrical positional habits Short Term Goal (STG Patient to be instructed in neutral posture and body ) mechanics and do self assessment of habitual positioning and movement including static, dynamic functional movement, and sleep positioning 06/28/24: goal met STG Duration goal met Residential Goal (LTG) Patient to demonstrate good understanding of posture and body mechanics and demonstrate improvement in positioning and movement habits statically and dynamically for improved function - MET LTG Duration 07/27/24 One Impairment LEFS 76% - MET Digital Analyst Goal (LTG) Improve LEFS to at least 90% as measure of improved activity tolerance and left LE function 06/28/24: reporting improved function, decreased pain. Did not fill out. LTG Duration 07/27/24 Assessment Summary Assessment nice improvement in body mechanics, strength, flexibility. We will finish up her two PT visits then have her focus on acupuncture which I think will really help the tension in her L rectus femoris and vastus lateralis Physical Therapy Plan Frequency and Duration Frequency of 2x/Week Treatment Duration of 8 treatment (weeks) Plan of Care Start 05/27/24 Date Plan of Care End 07/27/24 Date Therapeutic Interventions Therapeutic Home Exercise Program,Manual Therapy,Neuromuscular Re- Interventions education,Patient/Caregiver Education,Self-Care/Home Management,Soft Tissue Mobilization,Taping,Therapeutic Activities,Therapeutic Exercises Modalities Cold Pack/Ice Massage,Electric Stimulation,Hot Packs, Infrared Therapy,Ultrasound Next Visit Focus/Plan Next Note Type Treatment Note Next Visit Plan focus on Eccentric loading with strengthening Review/Progress single leg lift for form, review wall squat with ball squeeze. Continue to progress LE and core strengthening as tolerated (patient likes use of machines) use of mirror for LE alignment as able. Trial step ups/downs for form. Assess pelvic alignment and perform manual PRN Assess running posture. Continue KT tape with 75% tension (patient reports best response to higher tension)
--- NOTE | 2024-07-27 17:58 | PT.OTN ---
Current Diagnoses Other chronic pain (07/27/24) Pain in left knee (07/27/24) Physical Therapy Treatment Note PT-OP-A Visit Information Start: 05/26/24 17:13 Freq: Status: Active Protocol: Document 07/27/24 16:15 AB (Rec: 07/27/24 17:57 AB Laptop) Out-Patient Physical Therapy Visit Information Visit Information Visit Type Treatment Note Visit Note Access Code: [email or web address] Visit Start Time 16:18 Visit Stop Time 16:46 Visit Number 13 Number of DIE MAINTENANCE Visits 1 PT-OP-B Current Condition Start: 05/26/24 17:13 Freq: Status: Active Protocol: Document 06/28/24 14:27 SAK (Rec: 06/28/24 15:18 SAK Laptop) Current Condition History of Current Condition Onset Date 6 yrs ago. Current Complaints left low back, buttock, and knee pain History of Current Fell while holding a child, onto left hip, torquing Condition left leg and back resulting in pain. Tried chiropractor , not helpful. Went to PT friend, not helpful. After 2 years, tried PT, not helpful. Back to PT friend, referred to different chiropractor, helpful initially, pain came back. Going to go back to chiropractor. REferred for accupuncture, scheduled in July. Can't sleep, sit, stand, walk, without increase pain. Goes to gym most every day, similar cross fit, walks several miles per day. Denies knee giving way, but reports clicking on stairs. Exercises quads a lot, no hamstrings. 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 Prior Treatments and x-ray left knee: The tibialfemoral and patellofemoral Tests joints are normal in width and alignment without arthritic change. Small effusion noted. Future Testing and return to physician and consider MRI if PT not helpful Treatments Planned PT-OP-C Subjective Start: 05/26/24 17:13 Freq: Status: Active Protocol: Document 07/27/24 16:15 AB (Rec: 07/27/24 17:57 AB Laptop) OP-PT Subjective Patient Comments Patient Comments Patient reports she went to accupunct Ramu and has had increased pain post, which she reports she was told this was expected. Inna reports having hip pain start of session, knee pain is not really there. Patient rates L hip 04/19 start of session. PT-OP-G Mobility & Gait Start: 05/26/24 17:13 Freq: Status: Active Protocol: Document 05/27/24 13:50 SAK (Rec: 05/30/24 08:24 SAK Laptop) OP Gait Assessment Gait Gait Assistance Independent Required: Gait Deviations General Gait Pattern Lateral Trunk Lean Factors Limiting Gait Function Factors Limiting Pain Gait Function Stair Climbing Evaluation Evaluation Level of Assist On Independent Stairs Technique/Endurance Stair Climbing Ascend and Descend Direction Comments Stair Climbing increase in pain Comments PT-OP-H Neuro Start: 05/26/24 17:13 Freq: Status: Active Protocol: Document 05/27/24 13:50 SAK (Rec: 05/30/24 08:24 SAK Laptop) Sensation Evaluation Gross Sensation Gross Sensation WNL PT-OP-J Posture/Palpation/Skin Start: 05/26/24 17:13 Freq: Status: Active Protocol: Document 07/14/24 17:46 KW (Rec: 07/14/24 17:55 KW Laptop) Posture Evaluation Position Standing Head/C-Spine Posture Forward Head T-Spine Posture Increased Kyphosis L-Spine Posture Decreased Lordosis Shoulder Posture (L) Rounded,(R) Rounded,(L) Forward Pelvis Posture Anteriorly Tilted,(R) Iliac Crest Superior Weight Distribution Weight Shifted Right Knee Posture (L) Genu Recurvatum,(R) Genu Recurvatum Ankle/Foot Posture (L) Pronated Foot Arch (L) Low Arch Comments Posture Comments improving genu recurvatum, increased subtalar neutral, improved alignment of pelvis toward neutral Palpation Assessment Location left knee Palpation Location joint line Palpation Findings Tenderness Palpation Details significant trigger point L rectus femoris and vastus lateralis PT-OP-K Range of Motion Start: 05/26/24 17:13 Freq: Status: Active Protocol: Document 07/14/24 17:46 KW (Rec: 07/14/24 17:55 KW Laptop) Knee Goniometric Range of Motion Knee Left Knee ROM WFL Yes Comments prone knee flexion 110 pre treatment, 120 post contract relax and soft tissue work to rectus femoris Right Knee ROM WFL Yes Knee ROM Limitations Comments uncomfortable left knee with cross legged sitting PT-OP-L Special Tests Start: 05/26/24 17:13 Freq: Status: Active Protocol: Document 07/14/24 17:46 KW (Rec: 07/14/24 17:55 KW Laptop) Special Tests Knee Special Tests Varus- 0 Degrees Test Results - Valgus- 0 Degrees Test Results - Posterior Draw Test Results - Anterior Draw Test Results - Evens Test Test Results - PT-OP-M Strength Start: 05/26/24 17:13 Freq: Status: Active Protocol: Document 07/14/24 17:46 KW (Rec: 07/14/24 17:55 KW Laptop) Hip Strength Hip Manual Muscle Testing Left Flexion (L2) 4 Good Extension (S1) 4 Good Abduction 4 Good Adduction 4 Good External Rotation 4 Good Internal Rotation 4 Good Right Flexion (L2) 4 Good Extension (S1) 4 Good Abduction 4 Good Adduction 4 Good External Rotation 4 Good Internal Rotation 4 Good PT-OP-Q Treatments Start: 05/26/24 17:13 Freq: Status: Active Protocol: Document 07/27/24 16:15 AB (Rec: 07/27/24 17:57 AB Laptop) Therapeutic Exercises Supine Exercises piriformis stretch Supine Exercise Name 2. Knee to opp radha Side bilateral Reps/Minutes 60 sec X 2 each LE Comments Verbal cues Standing Exercises lift Resistance 20 lb Reps/Minutes X 6 review of hip hinge ,then with weight X 10 single leg lift Standing Exercise to floor Name Side bilateral Reps/Minutes x10 L X 7 R Comments monitored for pain reports discomfort R piririformis Manual Therapy Treatment Soft Tissue Mobilization bilateral hips Body Location glute/pirifornis area bilateral hips Mobilization Type Cross-Friction,Rolling Intensity/Depth Moderate Body Position Sidelying Comments focus on rectus femoris/ in [place] stretch L knee only followed by prone contract relax Taping left knee Treatment Focus patellar realignment Type of Tape Kinesio Tape Skin Inspection intact Comments I strips stretched med and lateral to patella inf to sup 75 % stretch applied with knee in flex then lat to med over patella Manual Techniques MET for pubic shotgun and R AI L PI Reps/Duration 6 sec X 6 each PT-OP-T Assessment and Plan Start: 05/26/24 17:13 Freq: Status: Active Protocol: Document 07/27/24 16:15 AB (Rec: 07/27/24 17:57 AB Laptop) Physical Therapy Assessment Goals Three Impairment impaired strength and core stabilization Short Term Goal (STG Patient to be instructed in progressive, individualized ) strengthening and core stabilization exercises and be issued written handouts 06/28/24: goal met, ongoing STG Duration goal met Landscape Foreman Goal (LTG) Patient will be independent and compliant with HEP and demonstrate improvement in strength to 5/5 and good core stabilization in functional tasks to allow her to work without an increase in pain. - ongoing, improving 4/5 Two Impairment postural impairment with asymmetrical positional habits Short Term Goal (STG Patient to be instructed in neutral posture and body ) mechanics and do self assessment of habitual positioning and movement including static, dynamic functional movement, and sleep positioning 06/28/24: goal met STG Duration goal met Landscape Foreman Goal (LTG) Patient to demonstrate good understanding of posture and body mechanics and demonstrate improvement in positioning and movement habits statically and dynamically for improved function - MET LTG Duration 07/27/24 One Impairment LEFS 76% - MET Senior Living Goal (LTG) Improve LEFS to at least 90% as measure of improved activity tolerance and left LE function 06/28/24: reporting improved function, decreased pain. Did not fill out. LTG Duration 07/27/24 Assessment Summary Assessment Patient able to perform lift with improved hip hinge post training using self tactile cues. Inna reports having less knee pain ambulating out of session without device. Physical Therapy Plan Frequency and Duration Frequency of 2x/Week Treatment Duration of 8 treatment (weeks) Plan of Care Start 05/27/24 Date Plan of Care End 07/27/24 Date Therapeutic Interventions Therapeutic Home Exercise Program,Manual Therapy,Neuromuscular Re- Interventions education,Patient/Caregiver Education,Self-Care/Home Management,Soft Tissue Mobilization,Taping,Therapeutic Activities,Therapeutic Exercises Modalities Cold Pack/Ice Massage,Electric Stimulation,Hot Packs, Infrared Therapy,Ultrasound Next Visit Focus/Plan Next Note Type Treatment Note Next Visit Plan focus on Eccentric loading with strengthening Review/Progress single leg lift for form, review wall squat with ball squeeze. Continue to progress LE and core strengthening as tolerated (patient likes use of machines) use of mirror for LE alignment as able. Trial step ups/downs for form. Assess pelvic alignment and perform manual PRN Assess running posture. Continue KT tape with 75% tension (patient reports best response to higher tension)
--- NOTE | 2024-08-04 17:55 | PT.OTN ---
Current Diagnoses Other chronic pain (07/27/24) Pain in left knee (07/27/24) Physical Therapy Treatment Note PT-OP-A Visit Information Start: 05/26/24 17:13 Freq: Status: Active Protocol: Document 08/04/24 17:08 KW (Rec: 08/04/24 17:55 KW Laptop) Out-Patient Physical Therapy Visit Information Visit Information Visit Type Discharge Summary Visit Start Time 17:00 Visit Stop Time 17:45 Visit Number 14 PT-OP-B Current Condition Start: 05/26/24 17:13 Freq: Status: Active Protocol: Document 06/28/24 14:27 SAK (Rec: 06/28/24 15:18 SAK Laptop) Current Condition History of Current Condition Onset Date 6 yrs ago. Current Complaints left low back, buttock, and knee pain History of Current Fell while holding a child, onto left hip, torquing Condition left leg and back resulting in pain. Tried chiropractor , not helpful. Went to PT friend, not helpful. After 2 years, tried PT, not helpful. Back to PT friend, referred to different chiropractor, helpful initially, pain came back. Going to go back to chiropractor. REferred for accupuncture, scheduled in July. Can't sleep, sit, stand, walk, without increase pain. Goes to gym most every day, similar cross fit, walks several miles per day. Denies knee giving way, but reports clicking on stairs. Exercises quads a lot, no hamstrings. 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 Prior Treatments and x-ray left knee: The tibialfemoral and patellofemoral Tests joints are normal in width and alignment without arthritic change. Small effusion noted. Future Testing and return to physician and consider MRI if PT not helpful Treatments Planned PT-OP-C Subjective Start: 05/26/24 17:13 Freq: Status: Active Protocol: Document 08/04/24 17:08 KW (Rec: 08/04/24 17:55 KW Laptop) OP-PT Subjective Patient Comments Patient Comments continues with chiro, acupuncture, cross fit, taping of knee, stretching, running. Ready to DC for summer Patient Questionnaires Lower Extremity Functional Scale LEFS Score 78 OP-PT Pain Assessment Pain Assessment Grid Paper Pain Yes Assessment Grid Completed Location Left Pain Location low back, buttock, hip, knee Details Intensity 1 Scale Used Numeric (0 - 10) Description Aching,Burning,Pressure,Radiating,Stabbing,Tender, Tightness Frequency Frequent Pain Aggravating ADL's,Activity,Exercise,Standing,Sitting Factors Other Pain sleeping Aggravating Factors Pain Alleviating None Factors PT-OP-G Mobility & Gait Start: 05/26/24 17:13 Freq: Status: Active Protocol: Document 05/27/24 13:50 SAK (Rec: 05/30/24 08:24 SAK Laptop) OP Gait Assessment Gait Gait Assistance Independent Required: Gait Deviations General Gait Pattern Lateral Trunk Lean Factors Limiting Gait Function Factors Limiting Pain Gait Function Stair Climbing Evaluation Evaluation Level of Assist On Independent Stairs Technique/Endurance Stair Climbing Ascend and Descend Direction Comments Stair Climbing increase in pain Comments PT-OP-H Neuro Start: 05/26/24 17:13 Freq: Status: Active Protocol: Document 05/27/24 13:50 SAK (Rec: 05/30/24 08:24 SAK Laptop) Sensation Evaluation Gross Sensation Gross Sensation WNL PT-OP-J Posture/Palpation/Skin Start: 05/26/24 17:13 Freq: Status: Active Protocol: Document 08/04/24 17:08 KW (Rec: 08/04/24 17:55 KW Laptop) Posture Evaluation Position Standing Head/C-Spine Posture Forward Head T-Spine Posture Increased Kyphosis L-Spine Posture Decreased Lordosis Shoulder Posture (L) Rounded,(R) Rounded,(L) Forward Pelvis Posture Anteriorly Tilted,(R) Iliac Crest Superior Weight Distribution Weight Shifted Right Knee Posture (L) Genu Recurvatum,(R) Genu Recurvatum Ankle/Foot Posture (L) Pronated Foot Arch (L) Low Arch Palpation Assessment Location left knee Palpation Location joint line - resolved Palpation Findings Tenderness Palpation Details significant trigger point L rectus femoris and vastus lateralis - resolved PT-OP-K Range of Motion Start: 05/26/24 17:13 Freq: Status: Active Protocol: Document 08/04/24 17:08 KW (Rec: 08/04/24 17:55 KW Laptop) Knee Goniometric Range of Motion Knee Left Comments prone knee flexion 110 pre treatment, 120 post contract relax and soft tissue work to rectus femoris Right Knee ROM WFL Yes Knee ROM Limitations Comments uncomfortable left knee with cross legged sitting - resolved PT-OP-L Special Tests Start: 05/26/24 17:13 Freq: Status: Active Protocol: Document 07/14/24 17:46 KW (Rec: 07/14/24 17:55 KW Laptop) Special Tests Knee Special Tests Varus- 0 Degrees Test Results - Valgus- 0 Degrees Test Results - Posterior Draw Test Results - Anterior Draw Test Results - Evens Test Test Results - PT-OP-M Strength Start: 05/26/24 17:13 Freq: Status: Active Protocol: Document 08/04/24 17:08 KW (Rec: 08/04/24 17:55 KW Laptop) Hip Strength Hip Manual Muscle Testing Left Flexion (L2) 4+ Good+ Extension (S1) 4+ Good+ Abduction 4+ Good+ Adduction 4+ Good+ External Rotation 4+ Good+ Internal Rotation 4+ Good+ Right Flexion (L2) 4+ Good+ Extension (S1) 4+ Good+ Abduction 4 Good Adduction 4+ Good+ External Rotation 4+ Good+ Internal Rotation 4+ Good+ PT-OP-Q Treatments Start: 05/26/24 17:13 Freq: Status: Active Protocol: Document 08/04/24 17:08 KW (Rec: 08/04/24 17:55 KW Laptop) Cardio Equipment Bicycle (Upright) Duration (Minutes) 5 Resistance 20 Seat Position 6 Other cues for HS engagement Therapeutic Exercises Supine Exercises clam Equipment Used L3 TB Reps/Minutes 1 min hold x 2 Comments after long axis dist lext LE ball squeeze Reps/Minutes 10x5 Comments after long axis dist left LE supine hamstring bridge Supine Exercise Name supine hamstring bridge with foam roller walk outs Reps/Minutes 10 bridging Supine Exercise Name SL Equipment Used TrA monitoring medial to ASIS Reps/Minutes 10x Comments cues for hip alignment deep neck flexor head lift Supine Exercise Name HEP Reps/Minutes X 5 for 7 sec holds Comments increased verbal cues for chin tuck and lift without ex neck flexion piriformis stretch Supine Exercise Name 2. Knee to opp radha Side bilateral Reps/Minutes 60 sec X 2 each LE Comments Verbal cues 90/90 core isometric Supine Exercise Name straight and crossed Reps/Minutes 5x5 Prone Exercises pigeon stretch Prone Exercise Name w/ fwd/lat flexion Side bilateral Reps/Minutes 30s ea Comments vc for breath Sitting Exercises chair squat Reps/Minutes 10 Comments cues for exhale and press down thru heels Standing Exercises QL Doorway stretch Standing Exercise verbal review Name Side bilateral Reps/Minutes 30s ea Comments positive feedback response lift Resistance 20 lb Reps/Minutes X 6 review of hip hinge ,then with weight X 10 single leg lift Standing Exercise to floor Name Side bilateral Reps/Minutes x10 L X 7 R Comments monitored for pain reports discomfort R piririformis Manual Therapy Treatment Soft Tissue Mobilization bilateral hips Body Location glute/pirifornis area bilateral hips Mobilization Type Cross-Friction,Rolling Intensity/Depth Moderate Body Position Sidelying Comments focus on rectus femoris/ in [place] stretch L knee only followed by prone contract relax Manual Techniques MET for pubic shotgun and R AI L PI Reps/Duration 6 sec X 6 each PT-OP-T Assessment and Plan Start: 05/26/24 17:13 Freq: Status: Active Protocol: Document 08/04/24 17:08 KW (Rec: 08/04/24 17:55 KW Laptop) Physical Therapy Assessment Goals Three Impairment impaired strength and core stabilization Short Term Goal (STG Patient to be instructed in progressive, individualized ) strengthening and core stabilization exercises and be issued written handouts 06/28/24: goal met, ongoing STG Duration goal met [employer] Goal (LTG) Patient will be independent and compliant with HEP and demonstrate improvement in strength to 5/5 and good core stabilization in functional tasks to allow her to work without an increase in pain. - ongoing, improving 4/5 - MET Two Impairment postural impairment with asymmetrical positional habits Short Term Goal (STG Patient to be instructed in neutral posture and body ) mechanics and do self assessment of habitual positioning and movement including static, dynamic functional movement, and sleep positioning 06/28/24: goal met STG Duration goal met [employer] Goal (LTG) Patient to demonstrate good understanding of posture and body mechanics and demonstrate improvement in positioning and movement habits statically and dynamically for improved function - MET LTG Duration 07/27/24 One Impairment LEFS 76% - MET Jail Goal (LTG) Improve LEFS to at least 90% as measure of improved activity tolerance and left LE function MET LTG Duration 07/27/24 Assessment Summary Assessment Patient able to perform lift with improved hip hinge post training using self tactile cues. Inna reports having less knee pain she is very active with her job and exercise cross fit gym. encouragement given for a job well done with PT and cont chiro and acupuncture. self taping, stretching Physical Therapy Plan Therapeutic Interventions Therapeutic Home Exercise Program,Manual Therapy,Neuromuscular Re- Interventions education,Patient/Caregiver Education,Self-Care/Home Management,Soft Tissue Mobilization,Taping,Therapeutic Activities,Therapeutic Exercises Modalities Cold Pack/Ice Massage,Electric Stimulation,Hot Packs, Infrared Therapy,Ultrasound Discharge Physical Therapy Discharge Reasons Goals Met Discharge Comments continues with self care chiro and acupuncture
== END 2024-08-16 10:09 | disposition home or self-care (01) ==
LOC: PHYS 16:15
PROVIDERS: Family Provider Registered Nurse Diabetes Educator; PCP Registered Nurse Diabetes Educator; Referring Provider Registered Nurse Diabetes Educator; Visit Provider Registered Nurse Diabetes Educator
DX: G89.29 Other chronic pain (principal); M25.562 Pain in left knee
CPT/HCPCS: 97110; 97116; 97140; 97162; 97535

== ENCOUNTER → 2025-01-12 18:28 | Outpatient (CLI) | payer OTHER, SELFPAY | PROVIDERS: PCP Registered Nurse Diabetes Educator; Visit Provider Nurse Practitioner Family | DX: J02.9 Acute pharyngitis, unspecified (principal) | CPT/HCPCS: 87070 ==